=== PATIENT | male | born 1970 | race Caucasian/White ===

== ENCOUNTER → 2017-08-04 09:47 | Outpatient (CLI) | payer BC, SELFPAY ==
--- NOTE | 2017-08-04 09:53 | US_ITS ---
US scrotum HISTORY: ITS.REASON: TESTICULAR PAIN ORDERING PHYSICIAN: Christa Hart PATIENT AGE: 46 years Comparison: None FINDINGS: RIGHT TESTICLE: The right testicle has an unremarkable appearance measuring 3.8 x 1.8 x 2.8 cm. No testicular mass, hydrocele, spermatocele, or varicocele evident. Blood flow is noted to the right testicle. LEFT TESTICLE: The left testicle has an unremarkable appearance measuring3.9 x 1.7 x 2.3 cm. No mass, hydrocele, spermatocele, or varicocele evident. Blood flow is noted to the left testicle. IMPRESSION: Normal scrotal ultrasound.
== END ==
PROVIDERS: PCP Nurse Practitioner Family; Visit Provider Nurse Practitioner Family
DX: N50.811 Right testicular pain (principal)
CPT/HCPCS: 76870

== ENCOUNTER → 2018-01-27 10:17 | Outpatient (CLI) | payer BC, SELFPAY ==
--- NOTE | 2018-01-27 10:29 | CT_ITS ---
CT abdomen pelvis wo con CLINICAL INDICATION: Abdominal pain, pelvic pain, diverticulitis ITS.REASON: ABD PAIN,PROSTATITIS ORDERING PHYSICIAN: Guera Jasmine PATIENT AGE: 47 years COMPARISON: 02/09/2014 TECHNIQUE: Axial images obtained with sagittal and coronal reformats. All CT scans at the facility use one or more dose reduction, viz: automated exposure control, ma/kV adjustment per patient size (including targeted exams where dose is matched to indication, i.e. head), or iterative reconstruction technique. PROCEDURE: Oral Contrast: None IV Contrast: None . FINDINGS: The lung bases are clear. The liver, gallbladder, spleen, adrenal glands, and pancreas have unremarkable unenhanced appearance. There are multiple bilateral punctate renal calculi the largest on the right in the mid polar region of 4 mm and the largest on the left in the upper pole and 3 mm. There is minimal ectasia of the left renal collecting system and mild dilatation of the left ureter secondary to a 5 mm stone in the distal left ureter. No evidence of appendicitis, intestinal obstruction, or diverticulitis. There are scattered diverticula within the colon. Small lymph nodes are present in the mesentery nonspecific. Mild wedging involving T12 vertebral body unchanged. IMPRESSION: 1. Bilateral nephrolithiasis with 5 mm left distal ureteral stone. The stone is approximately 3 cm proximal to the ureterovesical junction with mild ectasia of the left renal collecting system. 2. No other acute findings.
== END ==
PROVIDERS: PCP Nurse Practitioner; Visit Provider Nurse Practitioner
DX: R10.84 Generalized abdominal pain (principal); N41.0 Acute prostatitis
CPT/HCPCS: 74176

== ENCOUNTER → 2019-01-25 10:00 | Outpatient (POV) | payer BC, SELFPAY | PROVIDERS: Visit Provider Dermatology | DX: Z00.00 Encounter for general adult medical examination without abnormal findings (principal) ==

== ENCOUNTER → 2019-01-28 09:38 | Outpatient (CLI) | payer BC, SELFPAY ==
--- NOTE | 2019-01-28 09:43 | XR_ITS ---
PROCEDURE: XR LUMBAR SPINE MIN 4V CLINICAL INDICATION: RT SCIATIA and low back pain COMPARISON: No exams were available for comparison FINDINGS: There is normal curvature and alignment. All lumbar vertebrae appear intact and disc spaces are well maintained throughout. There is a mild non recent compression fracture of T12 with approximately 20 percent loss of height centrally and anteriorly. There is no pars defect. There are mild hypertrophic facet changes at the L4-5 level. The SI joints are normal. IMPRESSION: No acute findings. Dictated by: Dr. Tae Funez MD 01/28/2019 10:[address] Tae Funez MD in [facility] 01/28/2019 10:22
--- NOTE | 2019-01-28 09:43 | XR_ITS ---
PROCEDURE: XR KUB CLINICAL INDICATION: RENAL CALCULI COMPARISON: ABDPELWO CT abdomen pelvis wo con from 01/27/2018 FINDINGS: Gas pattern-The bowel gas pattern is unremarkable. The mid and upper pole of the right renal shadow are somewhat obscured by overlying stool and bowel gas. No definite renal calculi are seen on either side. There is an additional small calculus right side of the pelvis which was not seen on the previous CT scan abdomen and pelvis 01/27/2018 and could possibly be a distal ureteral calculus. Additional calcifications are seen in both sides of the pelvis consistent with phleboliths and these were seen on the previous CT scan. IMPRESSION: No definite renal calculi seen though portions of the upper pole right kidney are obscured, question possibility of a distal right ureteral calculus versus new phlebolith Dictated by: Dr. Tae Funez MD 01/28/2019 10:[address] Tae Funez MD in [facility] 01/28/2019 10:14
== END ==
PROVIDERS: PCP Nurse Practitioner Family; Visit Provider Nurse Practitioner Family
DX: N20.0 Calculus of kidney (principal); M54.31 Sciatica, right side
CPT/HCPCS: 72110; 74018

== ENCOUNTER → 2019-08-04 08:46 | Outpatient (CLI) | payer BC, SELFPAY ==
--- NOTE | 2019-08-04 08:56 | XR_ITS ---
PROCEDURE: XR CHEST 2V CLINICAL HISTORY: SOB COMPARISON: No exams were available for comparison FINDINGS: The cardiomediastinal silhouette and pulmonary vascularity are within normal limits. The lungs are clear without infiltrates, suspicious nodules, or pleural effusions. No acute bony abnormalities. IMPRESSION: No acute findings. Dictated by: Andrey العلي MD 08/04/2019 15:57 Electronically signed by Andrey العلي MD in [facility] 08/04/2019 15:57
== END ==
PROVIDERS: PCP Nurse Practitioner Family; Visit Provider Nurse Practitioner Family
DX: R06.02 Shortness of breath (principal)
CPT/HCPCS: 71046

== ENCOUNTER → 2019-09-21 10:33 | Outpatient (CLI) | payer BC, SELFPAY ==
[2019-09-21 12:21] LABS: Coronavirus 19 IgG Antibody Negative (Negative); Coronavirus 19 IgM Antibody Negative (Negative)
== END ==
PROVIDERS: Visit Provider Internal Medicine Gastroenterology
DX: Z01.818 Encounter for other preprocedural examination (principal)
CPT/HCPCS: 36415; 86328

== ENCOUNTER 2019-09-23 08:53 | Day surgery (SDC) | payer BC, SELFPAY ==
[2019-09-19 14:37] VITALS: BMI 27.5
[2019-09-23] VITALS (7 sets, daily range): BP systolic 109–146; BP diastolic 61–99; PULSE 61–75; RESP 18; TEMP 36.1–36.6; O2SAT 95–98
--- NOTE | 2019-09-23 09:29 | HMH.ANESCL ---
[facility] Anesthesia Checklist - Patient Identification Patient Identification: Arm Band, Verbal (Name & ) - Structural Data Admitted From: Home Planned Operative Procedure/s: EGD Consent for Planned Operative Procedure(s) Verified: Yes Verified Documents: Surgical Consent, History and Physical - NPO Status Verified Time NPO: 00:00 - Chart Verification Results Verified: None - Additional verifications Anesthesia Reactions: No - Airway Assessment C-Spine Mobility Assessed: Yes (MP 2, TMD 3) TMJ Mobility Assessed: Yes Dentition: Good Dentition - Neurological Assessment Level of Consciousness: Awake, Alert, Appropriate, Follows Commands Hx Seizures: No Numbness or tingling in extremities: No - Anesthesia Plan Anesthesia Risk discussed: Yes Anesthesia Plan: Verified ASA Class: II Anesthesia Type: MAC [facility] History I have reviewed the patient's past medical history: Yes Medical History: Reports:: Cancer, Gastroesophageal Reflux Disease(GERD), Hyperlipidemia, Kidney Stones Denies:: Diabetes Mellitus Type 1, Diabetes Mellitus Type 2, Internal Pacemaker, Lung Disease, MRSA, Seizures *Have you ever received a pneumonia vaccine?: No *Have you received a flu vaccine this season?: No Anesthesia experience/problems:: PONV Laterality Cases: Bilateral: Tonsillectomy Other Surgeries: Yes: Colonoscopy, Other (Cystoscopy). No: Pacemaker Amputation: No Fractures: No - *Social History Last grade of school completed: Some college Smoking Status: Never smoker Alcohol Intake: never Substance Use Type: denies use *Occupational Status:: employed Housing: house Household Members: spouse, family *Travel in the last 8 weeks: None Family Hx:: Cancer
--- NOTE | 2019-09-23 10:35 | P.PCN_ITS ---
[facility] Procedure Note Procedure Note:: Upper Endoscopy Procedure Report: Esophagogastroduodenoscopy with cold biopsies and TTS balloon dilation Endoscopost: Omar Brady II, MD Referring Physician: Deana GOMEZ Date of Procedure: September 23, 2019 Equipment: Olympus GIF 180 standard upper endoscope Sedation: MAC sedation Indications: Mr. Gonzáles is a 48-year-old gentleman with heartburn and reflux. He started on omeprazole 20 mg daily 2 months ago which has helped some. He continues to have moderate globus sensation, dysphagia, frequent clearance of the throat and some cough. He reports no belching or bloating but does report some minor bloating. He has had some early satiety. He reports no nausea, epigastric discomfort or dyspepsia. He reports regular bowel function and does take Citrucel daily. He had seen me for diagnostic colonoscopy in February 2018 and had mild diverticulosis. At that time, he had obstipation/incomplete bowel evacuation and some lower abdominal discomfort. That has resolved. This is his first upper endoscopy. Procedure: Prior to the procedure, a history and physical exam was performed, and patient's medications and allergies were reviewed. The risks, benefits and alternatives of the sedation and procedure were discussed with the patient. All questions were answered and informed consent was obtained. The patient was brought to the procedure room. Patient identification and proposed procedure were verified by the physician and the nurse. The patient was placed in a left lateral decubitus position and the scope was passed under direct vision. Throughout the procedure, the patient's blood pressure, pulse, and oxygen saturations were monitored continuously. The upper GI endoscopy was accomplished without difficulty. The patient tolerated the procedure well. Findings: The scope was passed directly into the upper esophagus and advanced to the third portion of the duodenum. The post bulbar duodenum and duodenal bulb were normal with normal mucosa and conniventes. The scope was withdrawn through a normal duodenal bulb and pylorus into the stomach. There was mild to moderate linear erythema of the antrum and body of the stomach with bile reflux consistent with linear reactive gastropathy. The remainder of the antrum, body and fundus of the stomach were grossly normal. Upon retroflexion there was a very small sliding 1 to 2 cm hiatal hernia. 2 biopsies were taken in the antrum and along the lesser curvature for histology to rule out gastritis and/or H pylo ri. There were a couple of fundic gland polyps 1 of which was removed via cold biopsy. The scope was then withdrawn into the esophagus. There was no evidence of reflux esophagitis or Wells's. There was a serrated Z line. There were tertiary contractions and evidence of mild to moderate esophageal dysmotility. Biopsies were taken at the GE junction to rule out intestinal metaplasia. The entire esophagus was dilated to 60 Turkish/20 mm with a TTS hydrostatic balloon. There was some resistance at the cricopharyngeus/cricopharyngeal spasm. The remainder of the esophageal mucosa was normal. Impression: 1. 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 Nonerosive GERD with moderate esophageal dysmotility and very small 1 to 2 cm hiatal hernia 3. Bile reflux with linear reactive gastropathy of antrum/body of stomach 4. Gastric fundic gland polyps Plan: I do feel that the patient has functional GERD with esophageal dyskinesia/spasm and globus sensation. We will discuss additional dietary measures and treatment options. I will follow-up the biopsies.
== END 2019-09-23 11:32 | disposition home or self-care (01) ==
LOC: OUTP 08:58
PROVIDERS: PCP Family Medicine; Visit Provider Internal Medicine Gastroenterology
PROC: 0DJ08ZZ Inspection of Upper Intestinal Tract, Via Natural or Artificial Opening Endoscopic (ICD-10-PCS; CPT 43235; principal; 2019-09-23 10:00)
DX: K22.4 Dyskinesia of esophagus (principal); J39.2 Other diseases of pharynx; K21.9 Gastro-esophageal reflux disease without esophagitis; K44.9 Diaphragmatic hernia without obstruction or gangrene; K31.9 Disease of stomach and duodenum, unspecified; K31.7 Polyp of stomach and duodenum; Z87.19 Personal history of other diseases of the digestive system
CPT/HCPCS: 43239; 43249; C1726

== ENCOUNTER → 2019-10-10 15:19 | Outpatient (CLI) | payer BC, SELFPAY ==
--- NOTE | 2019-10-10 15:32 | XR_ITS ---
PROCEDURE: XR KUB CLINICAL INDICATION: KIDNEY STONES COMPARISON: CT ABDPELWO CT abdomen pelvis wo con from 01/27/2018 FINDINGS: There are multiple calcifications in the pelvis and may be due to phleboliths. There is a mild amount of retained colonic feces. No acute bony abnormalities. A faint calcific density overlies the mid aspect of the right kidney at 1 mm and may be due to right nephrolithiasis. IMPRESSION: Possible right nephrolithiasis Dictated by: Andrey العلي MD 10/10/2019 17:55 Andrey العلي MD in [facility] 10/10/2019 17:55
== END ==
PROVIDERS: PCP Family Medicine; Visit Provider Nurse Practitioner Family
DX: R10.9 Unspecified abdominal pain (principal); Z87.442 Personal history of urinary calculi
CPT/HCPCS: 74018

== ENCOUNTER → 2019-10-18 10:56 | Outpatient (CLI) | payer BC, SELFPAY ==
--- NOTE | 2019-10-18 11:02 | CT_ITS ---
PROCEDURE: CT ABDOMEN PELVIS WO CON CLINICAL INDICATION: RENAL CALCULUS, RIGHT, RIGHT FLANK PAIN Right flank pain COMPARISON: CT ABDPELWO CT abdomen pelvis wo con from 01/27/2018 TECHNIQUE: Axial images obtained with sagittal and coronal reformats. All CT scans at the facility use one or more dose reduction, viz: automated exposure control, ma/kV adjustment per patient size (including targeted exams where dose is matched to indication, i.e. head), or iterative reconstruction technique. FINDINGS: LOWER THORAX: No acute finding ABDOMEN & PELVIS: There is a sub cm low-density lesion in the right hepatic lobe too small to categorize not significantly changed. The spleen, adrenal glands, and pancreas have an unremarkable appearance. There are bilateral renal calculi measuring up to 4 mm in the lower pole on the right and upper pole on the left. There is minimal ectasia of the right renal collecting system. There is a 4 mm stone in the right ureterovesical junction. No evidence of appendicitis. There are scattered colonic diverticula but no evidence of diverticulitis. There are few scattered small periportal lymph nodes. There is mild chronic wedging of T12 IMPRESSION: 1. 4 mm right ureterovesical junction stone with only minimal ectasia of the right renal collecting system. 2. Bilateral nephrolithiasis Dictated by: Andrey العلي MD 10/18/2019 12:43 Andrey العلي MD in [facility] 10/18/2019 12:43
== END ==
PROVIDERS: PCP Family Medicine; Visit Provider Nurse Practitioner Family
DX: N20.0 Calculus of kidney (principal); R10.11 Right upper quadrant pain
CPT/HCPCS: 74176

== ENCOUNTER → 2019-12-21 09:29 | Outpatient (CLI) | payer BC, SELFPAY ==
--- NOTE | 2019-12-21 09:36 | XR_ITS ---
PROCEDURE: XR ELBOW LT MIN 3V CLINICAL INDICATION: LT elbow pain COMPARISON: No exams were available for comparison FINDINGS: No fracture or dislocation. No lytic or blastic change. There is normal mineralization. The joint spaces are well-preserved. No significant degenerative/arthritic changes. No erosive changes evident. Other findings:None. IMPRESSION: No acute findings. Dictated by: Dr. Tae Funez MD 12/21/2019 09:51 Dr. Tae Funez MD in [facility] 12/21/2019 09:51
== END ==
PROVIDERS: PCP Nurse Practitioner Family; Visit Provider Orthopaedic Surgery
DX: M25.522 Pain in left elbow (principal)
CPT/HCPCS: 73080

== ENCOUNTER → 2020-06-18 09:25 | Outpatient (CLI) | payer BC, SELFPAY ==
--- NOTE | 2020-06-18 | CA_ITS ---
APPROVED REPORT Exam: Exercise Treadmill Technologist: Consuelo Sandhu, Ht: 5 ft 10 in Wt: 198 lbs BSA: 2.08 m2 HR: 79 bpm BP: 130/90 mmHg Medical History Medications: Omeprazole,,,,, Simvastatin,,,,, Vitamin D3,,,,, Ambien,,,,, Diclofenac Sodium,,,,, Stress Test Details Test: Tyrese HR Resting HR: 87 bpm Max Heart Rate (APMHR): 171 bpm Max HR Achieved: 168 bpm Target HR (85% APMHR): 145 bpm % of APMHR: 98 Recovery HR: 120 bpm BP Resting BP: 130/90 mmHg Max BP: 191/94 mmHg Recovery BP: 155.0/86.0 mmHg ECG Clinical Exercise duration: 10:21 min Highest Stage Achieved: Exercise capacity: 12.8 METs Stress ECG Conclusion Symptoms: No CP, SOA noted, test stopped due to leg fatigue.Normal excercise stree test with good excercise capacity. Arrythmias/Ectopy: None ST-T Changes: <1.5mm ST segment changes. Test Summary REST . . . . . . . Standing REST . . . . . . . Sitting REST 11:40 0.0 0.0 87 . 130/ 90 . . Stage 1 01:00 10.0 1.7 101 . . . . Stage 1 02:00 10.0 1.7 112 . 140/ 80 . . Stage 1 03:00 10.0 1.7 109 . 140/ 80 . . Stage 2 01:00 12.0 2.5 122 . . . . Stage 2 02:00 12.0 2.5 123 . 145/ 65 . . Stage 2 03:00 12.0 2.5 130 . 145/ 65 . . Stage 3 01:00 14.0 3.4 142 . . . . Stage 3 02:00 14.0 3.4 149 . 160/ 80 . . Stage 3 03:00 14.0 3.4 150 . 160/ 80 . . Stage 4 01:00 16.0 4.2 165 . . . . Stage 4 01:21 16.0 4.2 167 . . . Stop exercise at 10:21 RECOVERY 01:00 0.0 0.0 144 . 160/ 80 . . RECOVERY 02:00 0.0 0.0 126 . 191/ 94 . . RECOVERY 03:00 0.0 0.0 121 . 155/ 86 . . RECOVERY 03:16 0.0 0.0 120 . 155/ 86 . . Electronically signed by : Trever Maria, 06/18/2020 19:19:21
== END ==
PROVIDERS: PCP Nurse Practitioner Family; Visit Provider Nurse Practitioner Family
DX: R07.9 Chest pain, unspecified (principal); I10 Essential (primary) hypertension
CPT/HCPCS: 93017

== ENCOUNTER → 2020-09-28 16:15 | Outpatient (CLI) | payer BC, SELFPAY ==
[2020-09-28 17:01] LABS: Basophils # 0.1 K/mm3 (0-0.2); Basophils % 0.9 % (0.1-2.0); Eosinophils # 0.1 K/mm3 (0.0-0.4); Eosinophils % 1.8 % (0.1-12.0); Hematocrit 45.7 % (42.0-52.0); Hemoglobin 14.9 g/dL (14.1-18.0); Lymphocytes # 1.8 K/mm3 (0.7-4.5); Lymphocytes % 31.2 % (10-50); Mean Corpuscular HGB Conc 32.6 g/dL (31.8-35.4); Mean Corpuscular Hemoglobin 29.8 pg (27.0-31.2); Mean Corpuscular Volume 91.5 fl (80-94); Monocytes # 0.4 K/mm3 (0.1-1.0); Monocytes % 7.2 % (1.7-9.3); Neutrophils # 3.4 K/mm3 (1.8-7.8); Neutrophils % 58.9 % (37.0-80.0); Platelet Count 243 K/mm3 (142-424); Red Blood Count 4.99 M/mm3 (4.60-6.20); Red Cell Distribution Width 13.8 % (11.5-17.5); White Blood Count 5.7 K/mm3 (4.8-10.8)
[2020-09-28 18:45] LABS: Alanine Aminotransferase 59 U/L (12-78); Albumin Level 4.3 g/dl (3.5-5.0); Albumin/Globulin Ratio 1.7 (1.1-1.8); Alkaline Phosphatase 54 U/L (38-126); Anion Gap 11.2 mEq/L (5-15); Aspartate Amino Transferase 36 U/L (17-59); Bilirubin,Total 0.6 mg/dl (0.2-1.3); Blood Urea Nitrogen 15 mg/dl (9-20); Calcium 9.3 mg/dl (8.4-10.2); Carbon Dioxide 33 mmol/L (22.0-30.0); Chloride 101 mmol/L (98-107); Chol/HDL Ratio 6.5 (1-3.5); Cholesterol 189 mg/dl (140-200); Estimated Glomerular Filt Rate 89 ml/min (>60); GFR (African American) 108 ML/MIN (>60); Globulin 2.5 g/dL (1.3-3.2); Glucose 134 mg/dl (74-100); HDL Cholesterol 29 mg/dl (40-60); Potassium 4.2 mmoL/L (3.5-5.1); Sodium 141 mmol/L (136-145); Total Protein,Serum 6.8 g/dl (6.3-8.2); Triglycerides 335 mg/dl (30-150); VLDL Cholesterol 67 mg/dL (0-40)
[2020-09-28 18:55] LABS: Direct LDL Cholesterol 121.93 mg/dL (100-129)
[2020-09-28 19:03] LABS: 25-OH Vitamin D, Total 37.3 ng/mL (30-100)
[2020-09-28 19:16] LABS: Thyroid Stimulating Hormone 0.53 uIU/mL (0.465-4.68)
[2020-09-28 19:34] LABS: Vitamin B12 426 pg/mL (239-931)
== END ==
PROVIDERS: Visit Provider Nurse Practitioner Family
DX: I10 Essential (primary) hypertension (principal); R53.83 Other fatigue; E55.9 Vitamin D deficiency, unspecified; F51.01 Primary insomnia
CPT/HCPCS: 36415; 80053; 80061; 82306; 82607; 84443; 85025

== ENCOUNTER → 2020-10-12 15:14 | Outpatient (CLI) | payer BC, SELFPAY ==
--- NOTE | 2020-10-12 15:22 | XR_ITS ---
PROCEDURE: XR ELBOW LT MIN 3V CLINICAL INDICATION: left elbow pain COMPARISON: CR XR ELBOW LT MIN 3V from 12/21/2019 FINDINGS: There is a faint calcific density along the lateral epicondyle consistent with an old avulsion fracture or ligamentous calcification. Not significantly changed. No acute fracture or dislocation. Joint spaces are well preserved. No significant degenerative change or displaced fat pad IMPRESSION: No acute findings. Calcification along the lateral epicondyle which could be due to an old fracture or old ligamentous injury not significantly changed Dictated by: Andrey العلي MD 10/12/2020 15:38 Andrey العلي MD in [place] 10/12/2020 15:38
== END ==
PROVIDERS: PCP Family Medicine; Visit Provider Orthopaedic Surgery
DX: M77.10 Lateral epicondylitis, unspecified elbow (principal)
CPT/HCPCS: 73080

== ENCOUNTER → 2022-06-05 15:02 | Outpatient (CLI) | payer OTHER, SELFPAY ==
--- NOTE | 2022-06-05 15:28 | XR_ITS ---
FINAL REPORT CLINICAL HISTORY: RT KNEE PAIN COMPARISON: None FINDINGS: Two views of the right knee were obtained. There is no evidence of fracture or dislocation. The bony alignment is normal. The joint spaces are preserved. There is no evidence of joint effusion. No localized soft tissue abnormality is identified. IMPRESSION: No acute abnormality identified. Reviewed, Interpreted and Dictated by Kaleb Riggins III, MD Transcribed by Barbara Arias Authenticated and [facility]
== END ==
PROVIDERS: PCP Family Medicine; Visit Provider Nurse Practitioner Family
DX: M25.561 Pain in right knee (principal)
CPT/HCPCS: 73560

== ENCOUNTER 2022-09-19 06:54 | Emergency (ER) | payer OTHER, BC, SELFPAY ==
[2022-09-19 06:56] VITALS: BP 135/95; PULSE 83; RESP 18; TEMP 36.7; O2SAT 97; BMI 27.9
--- NOTE | 2022-09-19 07:04 | PC.NURSE ---
dr rubi at bedside
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
[2022-09-19 07:15] VITALS: BP 130/87; PULSE 70; RESP 17; TEMP 36.7; O2SAT 96
== END 2022-09-19 07:15 | disposition home or self-care (01) ==
PROVIDERS: Emergency Provider Emergency Medicine; PCP Family Medicine
DX: S05.02XA Injury of conjunctiva and corneal abrasion without foreign body, left eye, initial encounter (principal); W20.8XXA Other cause of strike by thrown, projected or falling object, initial encounter; W25.XXXA Contact with sharp glass, initial encounter
CPT/HCPCS: 99284

== ENCOUNTER 2023-02-27 16:03 | Outpatient (CLI) | payer OTHER, SELFPAY ==
--- NOTE | 2023-02-27 16:19 | XR_ITS ---
PROCEDURE INFORMATION: Exam: XR Thoracic Spine Exam date and time: 02/27/2023 4:23 PM Age: 52 years old Clinical indication: Injury or trauma; Fall; Blunt trauma (contusions or hematomas); Additional info: Fall at work TECHNIQUE: Imaging protocol: Radiologic exam of the thoracic spine. Views: 3 views. COMPARISON: CR XR LUMBAR SPINE MIN 4V 02/27/2023 4:23 PM FINDINGS: Bones/joints: Mild chronic appearing compression deformity of T12. No acute fracture localized. Soft tissues: Unremarkable. IMPRESSION: Mild chronic appearing compression deformity of T12. No acute fracture localized.
--- NOTE | 2023-02-27 16:20 | XR_ITS ---
PROCEDURE INFORMATION: Exam: XR Lumbosacral Spine Exam date and time: 02/27/2023 4:23 PM Age: 52 years old Clinical indication: Injury or trauma; Fall; Work related; Blunt trauma (contusions or hematomas); Additional info: Fall at work TECHNIQUE: Imaging protocol: Radiologic exam of the lumbosacral spine. Views: 4 or 5 views. COMPARISON: CR XR LUMBAR SPINE MIN 4V 01/28/2019 9:49 AM FINDINGS: Bones/joints: Mild chronic appearing compression deformity superior endplate of T12 with anterior wedging. No acute fracture. Mild facet arthropathy and spondylosis. Relatively good preservation of disc space height. Soft tissues: Unremarkable. Organs: Bilateral renal stones. Eleven by 5 mm calcification lateral to the L3-L4 disc space, potentially a ureteral stone on the right. IMPRESSION: 1. Mild chronic appearing compression deformity superior endplate of T12 with anterior wedging. No acute fracture. 2. Bilateral renal stones. Eleven by 5 mm calcification lateral to the L3-L4 disc space, potentially a ureteral stone on the right.
== END 2023-02-27 23:59 ==
PROVIDERS: PCP Family Medicine; Visit Provider Nurse Practitioner Family
DX: M54.6 Pain in thoracic spine (principal); M54.50 Low back pain, unspecified
CPT/HCPCS: 72072; 72110

== ENCOUNTER 2023-06-09 15:02 | Outpatient (CLI) | payer BC, SELFPAY ==
--- NOTE | 2023-06-09 15:05 | US_ITS ---
FINAL REPORT TECHNIQUE: Ultrasound images of the testicles were obtained bilaterally. Color Doppler images were obtained. CLINICAL HISTORY: TESTICULAR PAIN COMPARISON: None FINDINGS: The testicles are normal in size and echotexture bilaterally. Arterial flow is identified bilaterally. There is a moderate left varicocele and a small right varicocele. Trace hydroceles are noted bilaterally. There are small rounded areas in the left epididymal head measuring up to 5 mm, some appear purely cystic while others are complex and are favored to represent epididymal cysts. IMPRESSION: Bilateral varicoceles, left greater than right. Epididymal cysts on the left. Reviewed, Interpreted and Dictated by Rodrigo Garcia MD Transcribed by Barbara Arias Authenticated and [facility]
== END 2023-06-09 23:59 | disposition home or self-care (01) ==
LOC: RAD 15:02
PROVIDERS: PCP Nurse Practitioner; Visit Provider Nurse Practitioner
DX: N50.819 Testicular pain, unspecified (principal)
CPT/HCPCS: 76870

== ENCOUNTER 2023-06-16 15:08 | Outpatient (CLI) | payer BC, SELFPAY ==
--- OUTSIDE RECORDS SUMMARY | 2023-06-16 15:10 | XMS_ITS ---
Care Plan - [facility], [facility] Created on: June 16, 2023 Quirino Gonzáles : 1970 Sex: Male Author Name Unknown Address [address] [place] [address] Phone Organization [facility] Address [address] [place] [address] Phone Care Team Providers Care Meter Attendant Name Role Phone Michelle REGALADO, Caleb Unavailable [phone]
--- OUTSIDE RECORDS SUMMARY | 2023-06-16 15:10 | XMS_ITS ---
Author Name Unknown Address [address] [place] [address] [place] [address] Phone Organization [facility] , [facility] Address [address] [address] Phone Care Team Providers Care Malted Milk Masher Name Role Phone Michelle REGALADO, Caleb Unavailable [phone] Plan of Treatment No Plan of Treatment Recorded Assessments Includes: Assessments for all patient encounters No Assessments Recorded Medical Equipment - Implanted Devices Includes: Current and historical Devices No Medical Equipment Recorded Medications Administered Includes: Administered Medications in patient's chart No Administered Medications Recorded Results Includes: Results from 06/15/2022 through 06/16/2023 No Results Recorded For Specified Dates History of Present Illness History of Present Illness not supported for this document type No History of Present Illness Recorded Social History No Social History Recorded - Smoking Status Unknown Medical History Includes: Medical History in patient's chart No Medical History Recorded Family History Includes: Family History in patient's chart No Family History Recorded Review of Systems Review of Systems not supported for this document type No Review of Systems Recorded Mental Status No Mental Status Recorded Functional Status No Functional Status Recorded Physical Exam Physical Exam not supported for this document type No Physical Exam Recorded Insurance Includes: Active Insurance Policies Plan Name Member ID Group # Subscriber Relationship Effect nely Dates 1 - [facility] [id number] Quirino Gonzáles Self 0 06/03/2022 - Unknown Clinical Notes Includes: Signed Clinical Notes starting from 02/06/2022 No Clinical Notes Recorded
--- NOTE | 2023-06-16 15:11 | XR_ITS ---
FINAL REPORT CLINICAL HISTORY: CALCULUS OF KIDNEY follow up COMPARISON: 10/10/2019 FINDINGS: SINGLE VIEW ABDOMEN A single view of the abdomen was obtained. There is a nonobstructive bowel gas pattern. There is a moderate amount of stool in the colon. There are no abnormally dilated loops of small bowel. There is a 5 mm stone projected over the lower pole of the left kidney. Calcified phleboliths are noted in the floor the pelvis. IMPRESSION: 5 mm stone lower pole left kidney. Reviewed, Interpreted and Dictated by Rodrigo Garcia MD Transcribed by Barbara Arias Authenticated and [facility]
== END 2023-06-16 23:59 | disposition home or self-care (01) ==
LOC: RAD 15:08
PROVIDERS: PCP Family Medicine; Visit Provider Urology
DX: N20.0 Calculus of kidney (principal)
CPT/HCPCS: 74018

== ENCOUNTER 2023-07-13 15:52 | Outpatient (CLI) | payer BC, SELFPAY ==
--- OUTSIDE RECORDS SUMMARY | 2023-07-13 15:54 | XMS_ITS ---
Care Plan - [facility], [facility] Created on: July 13, 2023 Quirino Gonzáles : 1970 Sex: Male Author Name Unknown Address [address] [place] [address] Phone Organization [facility] , [facility] Address [address] [place] [address] Phone Care Team Providers Care Work Manager Name Role Phone Michelle REGALADO, Caleb Unavailable [phone]
--- OUTSIDE RECORDS SUMMARY | 2023-07-13 15:54 | XMS_ITS ---
Author Name Unknown Address [address] [place] [address] [place] [address] Phone Organization [facility] , [facility] Address [address] [place] [address] Phone Care Team Providers Care Gymnastics Instructor Name Role Phone Michelle REGALADO, Caleb Unavailable [phone] Plan of Treatment No Plan of Treatment Recorded Assessments Includes: Assessments for all patient encounters No Assessments Recorded Medical Equipment - Implanted Devices Includes: Current and historical Devices No Medical Equipment Recorded Medications Administered Includes: Administered Medications in patient's chart No Administered Medications Recorded Results Includes: Results from 07/12/2022 through 07/13/2023 No Results Recorded For Specified Dates History [...] Subscriber Relationship Effect nely Dates 1 - [facility] [id number] Quirino Gonzáles Self 0 06/03/2022 - Unknown Clinical Notes Includes: Signed Clinical Notes starting from 02/06/2022 No Clinical Notes Recorded
[2023-07-13 18:12] LABS: Blood Urea Nitrogen 22 mg/dl (9-20); Estimated Glomerular Filt Rate 58 ml/min (>60); GFR (African American) 70 ML/MIN (>60)
[2023-07-15 08:19] LABS: PSA, Free 0.53 ng/mL; Prostate Specific Ag 1.5 ng/mL (0.0-4.0)
== END 2023-07-13 23:59 | disposition home or self-care (01) ==
PROVIDERS: PCP Family Medicine; Visit Provider Urology
DX: N40.2 Nodular prostate without lower urinary tract symptoms (principal); N52.9 Male erectile dysfunction, unspecified
CPT/HCPCS: 36415; 82565; 84153; 84154; 84520

== ENCOUNTER 2023-11-23 11:17 | Day surgery (SDC) | payer BC, SELFPAY ==
[2023-11-18 11:21] VITALS: BMI 28.7
[2023-11-23 11:32] VITALS: BP 130/79; PULSE 90; RESP 18; TEMP 36.2; O2SAT 97
[2023-11-23] MEDS: LACTATED RINGERS 1000ML 1,000 ML 25 ML IV (11:39)
[2023-11-23 11:47] VITALS: O2SAT 97
--- NOTE | 2023-11-23 11:47 | P.HP_ITS ---
History of Present Illness *Admission Date: 11/23/23 *Reason for visit:: Screening *History of present illness: Mr. Gonzáles is a 53-year-old gentleman who is here for screening colonoscopy. The examination is deemed medically necessary for screening. The patient has been seen, interviewed and examined prior to the procedure by both myself and the anesthesia provider. [facility] Disclaimer: The information contained in this section may have been updated after the patient was seen, as this information can be updated by other users. Medical History (Updated 11/23/23 @ 11:51 by Omar Brady II, MD) History of diverticulosis History of BPH History of prostatitis Hx of gastroesophageal reflux (GERD) History of hyperlipidemia History of hypertension Surgical History History of tonsillectomy History of esophagogastroduodenoscopy (EGD) Hx of colonoscopy Family History Other No significant family history Social History (Updated 11/23/23 @ 11:28 by Bhavya Diallo RN) Smoking Status: Never smoker alcohol intake: never substance use type: denies use current occupational status: employed Travel in the last 8 weeks: None household members: spouse and family housing: house caffeine: Yes Review of Systems Review of Systems Review of systems (narrative): Negative *Cardiovascular Comments: Negative *Gastrointestinal Comments: Negative *Genitourinary Comments: Negative *Musculoskeletal Comments: Negative *Neurologic Comments: Negative Meds Home Medications and Allergies Home Medications ?Medication ?Instructions ?Recorded ?Confirmed ?Type cholecalciferol (vitamin D3) 25 5,000 unit PO DAILY Supplement 02/04/18 11/23/23 History mcg (1,000 unit) capsule zolpidem 10 mg tablet (Ambien) 10 mg PO QHS PRN Sleep 02/04/18 11/23/23 History omeprazole 20 mg capsule,delayed 20 mg PO DAILY GERD 09/23/19 11/23/23 History release buspirone 10 mg tablet 10 mg PO BID 11/16/23 11/23/23 History levofloxacin 500 mg tablet 500 mg PO DAILY 10 days #10 tabs 11/16/23 11/23/23 Rx losartan 50 mg tablet 50 mg PO DAILY 11/16/23 11/23/23 History simvastatin 40 mg tablet 40 mg PO DAILY 11/16/23 11/23/23 History diclofenac sodium 75 mg 75 mg PO DAILY 11/23/23 11/23/23 History tablet,delayed release New Prescriptions to Start Prescriptions: Allergies Allergy/AdvReac Type Severity Reaction Status Date / Time No Known Allergies Allergy Verified 11/23/23 11:29 Exam Data for Last 24 hours Vital signs and Labs for Last 24 Hours: Temp Pulse Resp BP Pulse Ox O2 Del Method 97.1 F L 90 18 130/79 97 Room Air 11/23/23 11:32 11/23/23 11:32 11/23/23 11:32 11/23/23 11:32 11/23/23 11:32 11/23/23 11:32 *Routine HEENT Exam Head: Present normocephalic Eye: Present EOMI and PERRL ENT: Present mucous membranes moist *Routine Neck Exam Neck: Present supple *Routine Respiratory Exam Respiratory: Present CTA bilaterally *Routine Cardiovascular Exam Cardiovascular: Present RRR *Routine Abdominal Exam Abdominal: Present soft and normoactive bowel sounds; Absent tenderness *Routine Rectal Exam Rectal:: deferred *Routine Genitalia Exam Genitalia:: deferred *Routine Extremities Exam Extremities: Absent cyanosis, clubbing or edema *Routine Skin Exam Skin: Present warm; Absent rash *Routine Neurological Exam Neurological: Present alert and oriented X3 Assessment and Plan *Assessment and plan (1) Screening for colon cancer: Status: Acute Category: Medical Code(s): Z12.11 - Encounter for screening for malignant neoplasm of colon Plan A/P: 1. Screening for colon cancer is the preprocedural diagnosis. The patient will be anesthetized/sedated using MAC sedation. The patient has been seen and examined. Cardiac and lung assessment prior to the examination is stable. Proceed with planned colonoscopy
--- NOTE | 2023-11-23 11:49 | P.PNANES_ITS ---
[facility] Disclaimer: The information contained in this section may have been updated after the patient was seen, as this information can be updated by other users. Medical History History of diverticulosis History of BPH History of prostatitis Hx of gastroesophageal reflux (GERD) History of hyperlipidemia History of hypertension Surgical History History of tonsillectomy History of esophagogastroduodenoscopy (EGD) Hx of colonoscopy Family History Other No significant family history Social History Smoking Status: Never smoker alcohol intake: never substance use type: denies use current occupational status: employed Travel in the last 8 weeks: None household members: spouse and family housing: house caffeine: Yes [facility] Anesthesia Checklist Patient Identification Patient Identification: Arm Band and Verbal (Name & ) Structural Data Admitted From: Home Planned Operative Procedure/s: Colonoscopy Consent for Planned Operative Procedure(s) Verified: Yes Verified Documents: Surgical Consent and History and Physical NPO Status Verified Time NPO: 00:00 Additional verifications Anesthesia Reactions: No Airway Assessment Mallampati Score:: Class III C-Spine Mobility Assessed: Yes TMJ Mobility Assessed: Yes Dentition: Good Dentition Neurological Assessment Level of Consciousness: Awake Hx Seizures: No Numbness or tingling in extremities: No Anesthesia Plan Anesthesia Risk discussed: Yes Anesthesia Plan: Verified ASA Class: II Anesthesia Type: MAC
--- NOTE | 2023-11-23 11:51 | HMH.PROCNOTE ---
[facility] Procedure Note Date: 11/23/23 Procedure Note:: Colonoscopy Procedure Report: Colonoscopy Endoscopist: Omar Brady II, MD Referring physician: Karena Parish M.D. Date of Procedure: November 23, 2023 Equipment: Olympus 190 variable stiffness pediatric colonoscope Sedation: MAC sedation Indication: Mr. Gonázles is a 53-year-old gentleman who is here for screening colonoscopy. He has had some suprapubic/pelvic pain related to prostatitis. He reports no abdominal pain, weight loss, change in his bowel habits or rectal bleeding. He reports no family history of colon cancer. He did have a colonoscopy 4-5 years ago Procedure: Prior to the procedure, a history and physical exam was performed, and patient's medications and allergies were reviewed. The risks, benefits and alternatives of the sedation and procedure were discussed with the patient. All questions were answered and informed consent was obtained. The patient was brought to the procedure room. Patient identification and proposed procedure were verified by the physician and the nurse. The patient was placed in a left lateral decubitus position and the scope was passed under direct vision. Throughout the procedure, the patient's blood pressure, pulse, and oxygen saturations were monitored continuously. The colonoscopy was accomplished without difficulty. The patient tolerated the procedure well. Findings: On digital rectal examination there was normal rectal tone. There were no external hemorrhoids. The prostate was 2-3+, mildly firm but symmetric without the colonoscope was introduced through the anal canal to the rectum and advanced to the cecum. The ileocecal valve and appendiceal orifice were identified. The scope was advanced a short distance into the ileum which appeared grossly normal. The scope was then withdrawn into the colon. The cecum, ascending and transverse colon and mucosa were grossly normal. There were scattered diverticuli throughout the descending and sigmoid colon (LEFT colon). The rectum itself was normal. Upon retroflexion within the rectum there were grade 1-2 internal hemorrhoids. The preparation was excellent throughout with Monroe Preparation Score of 9. The cecal time was 10 minutes. Impression: 1. Left-sided diverticulosis 2. Grade 1-2 internal hemorrhoids Plan: The patient will not require screening/surveillance colonoscopy again for 10 years by ACS guidelines. I would encourage fiber supplementation on a long-term daily maintenance basis.
[2023-11-23 12:11] VITALS: BP 120/80; PULSE 78; RESP 16; TEMP 36.3; O2SAT 96
[2023-11-23 12:21] VITALS: BP 114/69; PULSE 75; RESP 16; TEMP 36.3; O2SAT 96
[2023-11-23 12:31] VITALS: BP 125/71; PULSE 74; RESP 18; TEMP 36.3; O2SAT 96
[2023-11-23 12:41] VITALS: BP 124/70; PULSE 75; RESP 18; O2SAT 98
== END 2023-11-23 12:41 | disposition home or self-care (01) ==
PROVIDERS: PCP Family Medicine; Visit Provider Internal Medicine Gastroenterology
PROC: (CPT 45378; principal; 2023-11-23 13:30)
DX: Z12.11 Encounter for screening for malignant neoplasm of colon (principal); K57.30 Diverticulosis of large intestine without perforation or abscess without bleeding; K64.1 Second degree hemorrhoids
CPT/HCPCS: 45378; 99221; J2405; J7120

== ENCOUNTER 2023-12-03 14:29 | Outpatient (CLI) | payer OTHER, BC, SELFPAY ==
--- NOTE | 2023-12-03 14:31 | MR_ITS ---
FINAL REPORT CLINICAL HISTORY: LOW BACK PAIN ON RIGHT SIDE FINDINGS: Multiplanar MR imaging of the lumbar spine was performed without contrast. On the sagittal T2-weighted images, disc degeneration is seen at multiple levels. Mild endplate changes are seen at several levels. The vertebral alignment is normal. Several hemangiomas are present. There is no evidence of fracture. The conus has an unremarkable appearance. L1-2: There is no significant canal stenosis or neuroforaminal narrowing. L2-3: There is an annular disc bulge with facet arthropathy and vertebral osteophytes. There is mild right neuroforaminal narrowing. L3-4: An annular disc bulge with facet arthropathy is present. There is mild bilateral neuroforaminal narrowing. L4-5: An annular disc bulge with facet arthropathy is present. There is a small central disc protrusion. There is mild bilateral neuroforaminal narrowing. L5-S1: There is no significant canal stenosis or neuroforaminal narrowing. IMPRESSION: Multilevel degenerative disc disease as above. Small central disc protrusion at L4-5. Reviewed, Interpreted and Dictated by Kaleb Riggins III, MD Transcribed by Shaniqua Bowling Authenticated and . [facility]
--- NOTE | 2023-12-03 14:35 | XR_ITS ---
FINAL REPORT CLINICAL HISTORY: R/O METAL FOREIGN BODY FOR MRI FINDINGS: ORBITS Look up and look down views were obtained. No fracture is identified. The sinuses are clear. There are postoperative changes to the right inferior orbital wall with a wire in this region. No intraorbital foreign body is identified. IMPRESSION: No intraorbital foreign body is identified. Postoperative changes to the right inferior orbital wall with a wire in this region. Reviewed, Interpreted and Dictated by Kaleb Riggins III, MD Transcribed by Shaniqua Bowling Authenticated and . [facility]
== END 2023-12-03 23:59 | disposition home or self-care (01) ==
LOC: RAD 14:29
PROVIDERS: PCP Family Medicine; Visit Provider Nurse Practitioner
DX: M54.41 Lumbago with sciatica, right side (principal)
CPT/HCPCS: 70200; 72148

== ENCOUNTER 2024-01-30 17:15 | Emergency (ER) | payer BC, SELFPAY ==
[2024-01-30 17:28] VITALS: BP 151/100; PULSE 74; RESP 18; TEMP 36.4; O2SAT 96; BMI 28.7
--- NOTE | 2024-01-30 17:34 | ED_ITS ---
<Statement entered by Collin Muller MD - 01/30/24 23:08> I was consulted by the MERYL, and we discussed the complexity of the problems being addressed. I approved the treatment and management plan for this patient's care in the emergency department, thus performing a substantive portion of the medical decision making. Collin Muller MD, LELAND, FACEP Discharge Plan Disposition Patient Disposition: Home, Self-Care Prescriptions Prescriptions: New ibuprofen 800 mg tablet 800 mg PO TID PRN (Reason: pain) 7 Days Qty: 20 0RF hydrocodone-acetaminophen 5-325 mg tablet 1 tab PO Q6H PRN (Reason: pain) 3 Days Qty: 12 0RF tamsulosin [Flomax] 0.4 mg capsule 0.4 mg PO DAILY 7 Days Qty: 7 0RF ondansetron 4 mg tablet,disintegrating 4 mg PO Q6H PRN (Reason: nausea and vomiting) 5 Days Qty: 20 0RF No Action zolpidem [Ambien] 10 mg tablet 10 mg PO QHS PRN (Reason: Sleep) cholecalciferol (vitamin D3) 1,000 unit capsule 5,000 unit PO DAILY losartan 50 mg tablet 50 mg PO DAILY Patient Comments: TAKE 1 TABLET BY MOUTH ONCE DAILY simvastatin 40 mg tablet 40 mg PO DAILY Patient Comments: TAKE 1 TABLET BY MOUTH ONCE DAILY IN THE EVENING buspirone 10 mg tablet 10 mg PO BID Patient Comments: TAKE 1 TABLET BY MOUTH TWICE DAILY levofloxacin 500 mg tablet 500 mg PO DAILY 10 Days Qty: 10 0RF diclofenac sodium 75 mg tablet,delayed release (DR/EC) 75 mg PO DAILY Patient Comments: TAKE 1 TABLET BY MOUTH TWICE DAILY omeprazole 20 MG capsule,delayed release(DR/EC) 20 mg PO DAILY Referrals Follow up/Referrals: Maki Parish MD [Primary Care Provider] - See instructions Mitali (ED)Deana APRN [Emergency Midlevel Provider] - See instructions Walter Andrew MD [Referring] - See instructions Activity Restrictions/Add. Instructions Additional Instructions/Restrictions: You have a 4 mm distal ureteral stone that is obstructing. As discussed this is statistically very likely to pass you may make an appointment with your urologist Dr. Cruz return with any intractable nausea vomiting pain or high fevers. Clinical Impressions Clinical Impression: Hydronephrosis concurrent with and due to calculi of kidney and ureter Instructions Patient Instructions: DI for Low Back Pain Print Language Print Language: American Discharge ED Provider: Collin Muller General Adult HPI General Chief complaint: Back Pain/Injury Stated complaint: abd/back pain nausea history of kidney stones Time Seen by Provider: 01/30/24 17:21 History of Present Illness HPI narrative: This is a 53-year-old male who presents to the ED today with complaint of left lower pelvic pain that moves into his left back. He has had some burning with urination as well. He has had many kidney stones in the past. He feels like this is the same thing. He has nausea as well today. No fevers or chills. No vomiting or diarrhea. No other associated signs or symptoms at this time. Related Data Home Medications ?Medication ?Instructions ?Recorded ?Confirmed cholecalciferol (vitamin D3) 25 5,000 unit PO DAILY Supplement 02/04/18 11/23/23 mcg (1,000 unit) capsule zolpidem 10 mg tablet (Ambien) 10 mg PO QHS PRN Sleep 02/04/18 11/23/23 omeprazole 20 mg capsule,delayed 20 mg PO DAILY GERD 09/23/19 11/23/23 release buspirone 10 mg tablet 10 mg PO BID 11/16/23 11/23/23 losartan 50 mg tablet 50 mg PO DAILY 11/16/23 11/23/23 simvastatin 40 mg tablet 40 mg PO DAILY 11/16/23 11/23/23 diclofenac sodium 75 mg 75 mg PO DAILY 11/23/23 11/23/23 tablet,delayed release Previous Rx's ?Medication ?Instructions ?Recorded levofloxacin 500 mg tablet 500 mg PO DAILY 10 days #10 tabs 11/16/23 hydrocodone 5 mg-acetaminophen 325 1 tab PO Q6H PRN pain 3 days #12 01/30/24 mg tablet tabs ibuprofen 800 mg tablet 800 mg PO TID PRN pain 7 days #20 01/30/24 tabs ondansetron 4 mg disintegrating 4 mg PO Q6H PRN nausea and 01/30/24 tablet vomiting 5 days #20 tabs tamsulosin 0.4 mg capsule (Flomax) 0.4 mg PO DAILY 7 days #7 caps 01/30/24 Allergies Allergy/AdvReac Type Severity Reaction Status Date / Time No Known Allergies Allergy Verified 11/23/23 11:29 PFSH PFSH Disclaimer: The information contained in this section may have been updated after the patient was seen, as this information can be updated by other users. Medical History History of diverticulosis History of BPH History of prostatitis Hx of gastroesophageal reflux (GERD) History of hyperlipidemia History of hypertension Surgical History History of tonsillectomy History of esophagogastroduodenoscopy (EGD) Hx of colonoscopy Family History Other No significant family history Social History Smoking Status: Unknown if ever smoked alcohol intake: never substance use type: denies use current occupational status: employed Travel in the last 8 weeks: None household members: spouse and family housing: house caffeine: Yes Other Medical History Have you received the Flu Vaccine for this season: No Have you received the Pneumonia Vaccine: No ROS Obtained: Yes Systems reviewed as appropriate & no additional complaints except as documented Constitutional Constitutional: Reports as per HPI Physical Exam General General appearance: alert and in distress Head Head exam: atraumatic and normocephalic Eye Eye exam: Present normal appearance, PERRL and EOMI ENT ENT exam: Present normal exam, normal oropharynx and mucous membranes moist Neck Neck exam: Present normal inspection, full ROM and trachea midline Chest Chest inspection: Present normal inspection Respiratory Respiratory exam: Present normal lung sounds bilaterally Cardiovascular Cardiovascular exam: Present regular rate, normal rhythm, normal heart sounds, +S1 and +S2 Abdominal Exam Abdominal exam: Present soft and normal bowel sounds Abdominal tenderness: Present LLQ Extremities Exam Extremities exam: Present normal inspection, full ROM and normal capillary refill Back Exam Back exam: Present CVA tenderness (L) Neurological Exam Neurological exam: Present alert and oriented X3 Skin Skin exam: Present warm, dry and intact Medical Decision Making Medical Records Screening: Per USPSTF and CDC recommendations, given the prevalence of disease in our region, it is our hospital?s policy to screen for HIV and viral Hepatitis for all patients aged 18 and over and those with ongoing risk factors. Wes Inquiry Pt receiving controlled substance: No Wes was queried for this patient: No Vital Signs: 01/30/24 17:28 Temperature 97.5 F L Temperature Source Oral Pulse Rate [Right Radial] 74 Respiratory Rate 18 Blood Pressure [Right Arm] 151/100 H Blood Pressure Mean [Right Arm] 117 02 Sat by Pulse Oximetry 96 Oxygen Delivery Method Room Air Lab Data Lab Results 01/30/24 17:39: WBC 9.8, RBC 5.07, Hgb 15.2, Hct 47.1, MCV 93.0, MCH 30.0, MCHC 32.3, RDW 13.2, Plt Count 292, MPV 6.8 L, Neut % (Auto) 66.5, Lymph % (Auto) 26.9, [place] % (Auto) 4.6, Eos % (Auto) 1.0, Baso % (Auto) 1.0, Neut # (Auto) 6.5, Lymph # (Auto) 2.6, [place] # (Auto) 0.5, Eos # (Auto) 0.1, Baso # (Auto) 0.1, Sodium 143, Potassium 3.9, Chloride 106, Carbon Dioxide 33 H, Anion Gap 7.9, BUN 23 H, Creatinine 1.30 H, Estimated Creat Clear 84, Estimated GFR 58 L, Est GFR ( Amer) 70, Glucose 122 H, Calcium 9.3, Total Bilirubin 0.8, AST 48, ALT 101 H, Alkaline Phosphatase 62, Total Protein 7.1, Albumin 4.4, Globulin 2.7, Albumin/Globulin Ratio 1.6, Lipase 128, HIV 1&2 Antibody Rapid Nonreactive 01/30/24 17:43: Urine Color Yellow, Urine Appearance Slightly cloudy, Urine pH 6.5, Ur Specific [place] 1.025, Urine Protein Negative, Urine Glucose (UA) Negative, Urine Ketones Negative, Urine Blood 2+ A, Urine Nitrate Negative, Urine Bilirubin Negative, Urine Urobilinogen 0.2, Ur Leukocyte Esterase Negative, Urine RBC 20-50, Urine WBC None, Ur Squamous Epith Cells Occasional, Urine Bacteria Trace 01/30/24 17:39 01/30/24 17:39 Orders (Tests/Meds): ED MEDICATIONS Generic Name Dose Route Start Last Admin Trade Name Freq PRN Reason Stop Dose Admin Hydromorphone HCl 0.5 mg 01/30/24 18:44 01/30/24 18:52 Hydromorphone 2mg/Ml Syringe IV 02/29/24 18:43 0.5 mg Q2HP PRN Administration Severe Pain (7-10) Discontinued Medications Generic Name Dose Route Start Last Admin Trade Name Freq PRN Reason Stop Dose Admin Sodium Chloride 500 mls @ 999 mls/hr 01/30/24 17:24 01/30/24 17:59 Sod Chlor 0.9% 1000ml Bag IV 01/30/24 17:54 999 mls/hr .Q31M ONE Administration Ketorolac Tromethamine 30 mg 01/30/24 17:24 01/30/24 17:58 Ketorolac 30mg/Ml Vial IV 01/30/24 17:25 30 mg ONCE ONE Administration Morphine Sulfate 4 mg 01/30/24 17:28 01/30/24 17:58 Morphine 4mg/Ml Syringe IV 01/30/24 17:29 4 mg ONCE ONE Administration Morphine Sulfate 4 mg 01/30/24 19:51 01/30/24 19:57 Morphine 4mg/Ml Syringe IV 01/30/24 19:52 4 mg ONCE ONE Administration Ondansetron HCl 4 mg 01/30/24 17:29 01/30/24 17:59 Ondansetron 4mg/2ml Vial IV 01/30/24 17:30 4 mg ONCE ONE Administration Ondansetron HCl 4 mg 01/30/24 20:16 01/30/24 20:18 Ondansetron 4mg/2ml Vial IV 01/30/24 20:17 4 mg ONCE ONE Administration ORDERS Category Date Time Status CT abdomen pelvis wo con Stat Cat Scan 01/30/24 18:09 Completed CBC [Complete Blood Count Auto Diff] Stat Lab 01/30/24 17:39 Completed Comprehensive Metabolic Panel Stat Lab 01/30/24 17:39 Completed HIV (1&2) Antibody Rapid Stat Lab 01/30/24 17:39 Completed Hep C Ab with Reflex to RNA Stat Lab 01/30/24 17:39 Received Lipase Stat Lab 01/30/24 17:39 Completed Urinalysis-Acute [Urinalysis and Microscopic] Stat Lab 01/30/24 17:43 Completed Medical Decision Narrative: Insert review patient is a 53-year-old male presenting to the emergency department for evaluation of left lower pelvic pain that moves into his left back with some dysuria patient has a history of kidney stones.. Patient is hemodynamically stable and nontoxic-appearing upon arrival, afebrile. Differential diagnosis includes kidney stones, bladder infection. Workup will be conducted with hematologic labs, specific imaging including CT scan without contrast. Initial inventions include crystalloid bolus, analgesics, antibiotics. Initial workup reviewed by me hematologic labs are remarkable for minimally elevated kidney function which is normal for this patient at baseline. Urine reveals blood but no infection. Imaging informally interpreted by me and remarkable for kidney stone on the left with mild hydronephrosis. Dr. Muller also looked at the scan with me. Formal imaging read remarkable for:] Upon repeat evaluation patient's pain is improved. Patient has been given Zofran for nausea and morphine and Dilaudid for pain which did control his pain while here while in the ED. With this patient's history of will send patient home with referal to urology as well as pain and nausea meds. Patient will have quick follow-up with PCP as well as urology. Critical Care Critical Care Time Critical Care Time: No
[2024-01-30 17:40] LABS: Microscopic, Urine URINE MICROSCOPIC (MICROSCOPIC)
[2024-01-30 17:47] LABS: Basophils # 0.1 K/mm3 (0-0.2); Eosinophils # 0.1 K/mm3 (0.0-0.4); Hematocrit 47.1 % (42.0-52.0); Hemoglobin 15.2 g/dL (14.1-18.0); Lymphocytes # 2.6 K/mm3 (0.7-4.5); Lymphocytes % 26.9 % (10-50); Mean Corpuscular HGB Conc 32.3 g/dL (31.8-35.4); Mean Platelet Volume 6.8 fl (7.4-10.4); Monocytes # 0.5 K/mm3 (0.1-1.0); Monocytes % 4.6 % (1.7-9.3); Neutrophils # 6.5 K/mm3 (1.8-7.8); Neutrophils % 66.5 % (37.0-80.0); Platelet Count 292 K/mm3 (142-424); Red Blood Count 5.07 M/mm3 (4.60-6.20); Red Cell Distribution Width 13.2 % (11.5-17.5); White Blood Count 9.8 K/mm3 (4.8-10.8)
[2024-01-30 17:48] LABS: Bilirubin,Urine Negative (Negative); Blood, Urine 2+ (Negative); Color,Urine YELLOW (Yellow); Glucose,Urine (UA) Negative (Negative); Ketones,Urine Negative (Negative); Leukocyte Esterase,Urine Negative (Negative); Nitrate,Urine Negative (Negative); PH,Urine 6.5 (5.0-8.5); Protein,Urine Negative (Negative); Specific Gravity, Urine 1.025 (1.005-1.030); Urobilinogen,Urine 0.2 EU/dl (0.2)
[2024-01-30 17:52] LABS: Albumin Level 4.4 g/dl (3.5-5.0); Chloride 106 mmol/L (98-107); Potassium 3.9 mmoL/L (3.5-5.1); Sodium 143 mmol/L (136-145)
[2024-01-30 17:55] LABS: Alanine Aminotransferase 101 U/L (12-78); Albumin/Globulin Ratio 1.6 (1.1-1.8); Alkaline Phosphatase 62 U/L (38-126); Anion Gap 7.9 mEq/L (5-15); Aspartate Amino Transferase 48 U/L (17-59); Bilirubin,Total 0.8 mg/dl (0.2-1.3); Blood Urea Nitrogen 23 mg/dl (9-20); Calcium 9.3 mg/dl (8.4-10.2); Carbon Dioxide 33 mmol/L (22.0-30.0); Creatinine Clearance Estimated 84 mL/min (50-200); Estimated Glomerular Filt Rate 58 ml/min (>60); GFR (African American) 70 ML/MIN (>60); Globulin 2.7 g/dL (1.3-3.2); Glucose 122 mg/dl (74-100); Lipase 128 U/L (23-300); Total Protein,Serum 7.1 g/dl (6.3-8.2)
[2024-01-30 17:57] LABS: Appearance,Urine Slightly Cloudy (Clear)
[2024-01-30] MEDS: KETOROLAC 30MG/ML VIAL 30 MG IV (17:58)
[2024-01-30] MEDS: MORPHINE 4MG/ML SYRINGE 4 MG IV ×2 (17:58→19:57)
[2024-01-30] MEDS: ONDANSETRON 4MG/2ML VIAL 4 MG IV ×2 (17:59→20:18)
[2024-01-30] MEDS: 0.9 % SODIUM CHLORIDE 1000ML 500 ML 999 ML IV (17:59)
[2024-01-30 18:03] LABS: Bacteria,Urine Trace /lpf; RBC,Urine 20-50 #/hpf (0-3); Squamous Epithelial Cell,Urine Occasional #/hpf (0-5)
--- NOTE | 2024-01-30 18:09 | CT_ITS ---
PROCEDURE INFORMATION: Exam: CT Abdomen And Pelvis Without Contrast Exam date and time: 01/30/2024 6:34 PM Age: 53 years old Clinical indication: Abdominal pain; Additional info: Low abd pain TECHNIQUE: Imaging protocol: Computed tomography of the abdomen and pelvis without contrast. Radiation optimization: All CT scans at this facility use at least one of these dose optimization techniques: automated exposure control; mA and/or kV adjustment per patient size (includes targeted exams where dose is matched to clinical indication); or iterative reconstruction. COMPARISON: 1. CT ABDOMEN PELVIS WO CON 10/18/2019 11:[address] abdomen pelvis wo con 01/27/2018 10:53 AM 3. CR XR KUB 06/16/2023 3:13 PM FINDINGS: Liver: Normal. Gallbladder and biliary ducts: No acute process. Pancreas: Normal. Spleen: Normal. Adrenal glands: The adrenal glands appear normal. Kidneys and ureters: There are nonobstructing bilateral intrarenal calculi. Moderate left hydroureteronephrosis extending to a 5 mm distal ureteral calculus (image 109 series 3). Stomach and bowel: The stomach, small bowel, and colon are well-distended and show no evidence of wall thickening, masses, or obstruction. Appendix: No evidence of appendicitis. Intraperitoneal space: Unremarkable. Vasculature: The abdominal aorta and its major branches appear normal without evidence of aneurysm or stenosis. There are pelvic phleboliths. Lymph nodes: No lymphadenopathy. Urinary bladder: Unremarkable as visualized. Reproductive: No acute process. Bones/joints: Stable chronic compression deformity of T12 Soft tissues: There is a fat containing left inguinal hernia. IMPRESSION: Moderate left hydroureteronephrosis extending to a 5 mm distal ureteral calculus (image 109 series 3).
--- NOTE | 2024-01-30 18:37 | PC.NURSE ---
PT ARRIVED BACK TO CHAIR FROM CT VIA WHEELCHAIR
[2024-01-30] MEDS: HYDROMORPHONE 2MG/ML SYRINGE 0.5 MG IV (18:52)
[2024-01-30 19:06] LABS: HIV (1&2) Antibody Rapid NONREACTIVE (NONREACTIVE)
--- NOTE | 2024-01-30 19:50 | PC.NURSE ---
rounded on patient, patient asking for pain meds, informed
[2024-01-30 20:59] VITALS: BP 128/74; PULSE 85; RESP 18; TEMP 36.6; O2SAT 98
[2024-02-01 08:08] LABS: HCV Ab Non Reactive (Non Reactive)
== END 2024-01-30 21:00 | disposition home or self-care (01) ==
PROVIDERS: Nurse Practitioner; Emergency Provider Student in an Organized Health Care Education/Training Program; PCP Family Medicine
DX: N13.2 Hydronephrosis with renal and ureteral calculous obstruction (principal); R10.30 Lower abdominal pain, unspecified; R30.9 Painful micturition, unspecified; R11.0 Nausea; R30.0 Dysuria
CPT/HCPCS: 74176; 80053; 81001; 83690; 85025; 86803; 87389; 96361; 96374; 96375; 99284; J1171; J1885; J2270; J2405; J7030

== ENCOUNTER 2024-10-15 20:42 | Emergency (ER) | payer BC, SELFPAY ==
--- OUTSIDE RECORDS SUMMARY | 2024-09-27 12:22 | XMS_ITS | Encounter Summary ---
Author Organization [facility] Address [address] [place] [address] Care Team Providers Care Process Improvement Consultant Name Role Phone Pcp, No Primary Care Provider Unavailabl e Reason for Referral * Imaging (Routine) - Closed Specialty Diagnoses / Procedures Referred By Contac t Referred To Contact Radiology Diagnoses Chest pain, unspecified Procedures CT Angio Cardiac Coronary Arteries Jorge Adkins MD [address] [place] [address] Phone: tel: fax: Referral ID Status Reason Start Date Expiration Date Visits Re quested Visits Authorized [id number] Closed 08/25/2024 02/24/2026 1 1 Reason for Visit * Imaging (Routine) - Closed Specialty Diagnoses / Procedures Referred By Contac t Referred To Contact Radiology Diagnoses Chest pain, unspecified Procedures CT Angio Cardiac Coronary Arteries Jorge Adkins MD [address] [place] [address] Phone: tel: fax: Referral ID Status Reason Start Date Expiration Date Visits Re quested Visits Authorized [id number] Closed 08/25/2024 02/24/2026 1 1 Encounter Details Date Type Department Care Team (Latest Contact Info) Description 09/27/2024 12:22 PM EDT - 09/27/2024 1:43 PM EDT Hospital Encounter [facility] Radiology [address] [place] [address] Mesfin Parker RN CH-PAV A 5 T2 [...] (Buspar) 10 MG tablet Take 1 tablet (10 mg) by mouth 2 (two) times a day. cholecalciferol (Vitamin D-3) 1.25 MG (02918 UT) capsule Take 1 capsule (50,000 Units) by mouth 1 (one) time per week. 10/15/2023 diclofenac (Voltaren) 75 MG EC tablet Take 1 tablet (75 mg) by mouth 2 (two) times a day. ibuprofen 800 MG tablet TAKE 1 TABLET BY MOUTH THREE TIMES DAILY NEEDED FOR PAIN FOR 7 DAYS 01/31/2024 losartan (Cozaar) 50 MG tablet Take 1 tablet (50 mg) by mouth 1 (one) time each day. methocarbamol (Robaxin) 750 MG tablet Take 1 tablet (750 mg) by mouth 4 (four) times a day. 12/30/2023 omeprazole (PriLOSEC) [address] capsule Take 1 capsule (20 mg) by mouth 1 (one) time each day before breakfast. 11/25/2023 simvastatin (Zocor) 40 MG tablet Take 1 tablet (40 mg) by mouth 1 (one) time each day in the evening. zolpidem (Ambien) 10 MG tablet Take 1 tablet (10 mg) by mouth 1 (one) time each day. documented as of this encounter Miscellaneous Notes * Mesfin Hernandez RN - 09/27/2024 12:51 PM EDT Images from the original note were not included. [id number] Understanding coronary computed tomography angiography (CCTA) Coronary [...] site Last Reviewed Date: 2023 00:00:00 ?? [id number] [employer]. All rights reserved. This information is not [...] must be assessed by a doctor. Call 1 if you are alone and your reaction is more than mild sneezing or itching. If you have a mild reaction, call to speak with a Radiologist, explain that you havehad a contrast reaction, as this needs to be added to your medical record. documented in this encounter Plan of Treatment Upcoming Encounters Date Type Department Care Team (Latest Contact Info) Description 10/17/2024 8:25 AM EDT Hospital Encounter Cardiac Mechanism Inspector [address] [place] [id number] Candelaria Hahn MD [address] [place] [id number] Multiple vessel coronary artery disease 10/17/2024 8:25 AM EDT - 10/17/2024 10:40 AM EDT Surgery Cardiac Mechanism Inspector [address] [place] [address] Candelaria Hahn MD [address] [place] [address] Coronary angiography [05136 (CPT )] 03/10/2025 10:00 AM EST Office Visit [facility] Multidisciplinary Oncology Clinic [address] [place] [address] Megan Spangler MD [address] [address] documented as of this encounter Procedures Procedure [...] source 192 MDCT scanner (Somatom Force, Siemens [employer]) was used for data acquisition. A [...] 192 MDCT scanner (Somatom Force, Siem[employer] Medical Systems)was used for data acquisition. A non-contrast [...] sex as compared to their peer population (Rodri et al. J Am CollCardiol Img 2022). [...] signing this report, I, the attending physician, attestthat I have personally reviewed the images/data for the aboveexamination(s) and agree with the final edited report. Drafted by Dustin Rodriguez on 09/27/2024 2:00 PM Final report signed by Mesfin Hatch MD on 09/27/2024 4:36 PM Jorge Adkins MD IMG CT PROCEDURES Final Resul t documented in this encounter Visit Diagnoses Diagnosis Chest pain, unspecified Multiple vessel coronary artery disease Multiple vessel coronary artery disease documented in this encounter Administered Medications Inactive Administered Medications - up to 3 most recent administrations Medication Order MAR Action Action Date Dose Rate Site iohexol (OMNIPaque) 350 MG/ML injection 80 mL 80 mL, Intravenous, Once in imaging, 1 dose, Starting on Thu09/27/24 at 1227, Until Tu09/27/24 at 1254, Routine, Imaging Protocol Orders Given [...] documented as of this encounter Care Teams Process Improvement Consultant Relationship Specialty Start Date End Date Pcp, [place] [address] PCP - General Family Medicine 09/04/23 documented as of this encounter
--- OUTSIDE RECORDS SUMMARY | 2024-09-27 13:44 | XMS_ITS | Encounter Summary ---
Author Organization [facility] Address [address] [place] [address] Care Team Providers Care Machine Group Leader Name Role Phone Pcp, No Primary Care Provider Unavailabl e Reason for Referral * Imaging (Routine) - Closed Specialty Diagnoses / Procedures Referred By Contac t Referred To Contact Radiology Diagnoses Chest pain, unspecified Procedures CT Angio Cardiac Plaque Analysis Jorge Adkins MD [address] [place] [address] Phone: tel: fax: Referral ID Status Reason Start Date Expiration Date Visits Re quested Visits Authorized [id number] Closed 09/27/2024 03/29/2026 1 1 Reason for Visit * Imaging (Routine) - Closed Specialty Diagnoses / Procedures Referred By Contac t Referred To Contact Radiology Diagnoses Chest pain, unspecified Procedures CT Angio Cardiac Plaque Analysis Jorge Adkins MD [address] [place] [address] Phone: tel: fax: Referral ID Status Reason Start Date Expiration Date Visits Re quested Visits Authorized [id number] Closed 09/27/2024 03/29/2026 1 1 Encounter Details Date Type Department Care Team (Latest Contact Info) Description 09/27/2024 1:44 PM EDT - 09/27/2024 4:43 PM EDT Hospital Encounter [facility] [address] [place] [address] Chest pain, unspecified Discharge Disposition: Home or [...] a day. cholecalciferol (Vitamin D-3) 1.25 MG (10526 UT) capsule Take 1 capsule (50,000 Units) [...] each day. documented as of this encounter Plan of Treatment Upcoming Encounters Date Type Department Care Team (Latest Contact Info) Description 10/17/2024 8:25 AM EDT Hospital Encounter Cardiac Director Of Outreach [address] [place] [address] Candelaria Hahn MD [address] [place] [address] Multiple vessel coronary artery disease 10/17/2024 8:25 AM EDT - 10/17/2024 10:40 AM EDT Surgery Cardiac Director Of Outreach [address] [place] [address] Candelaria Hahn MD [address] [place] [address] Coronary angiography [87734 (CPT )] 03/10/2025 10:00 AM EST Office Visit [facility] [address] [place] [address] Megan Spangler MD [address] [place] [address] documented as of this encounter Procedures Procedure [...] coronary artery disease documented in this encounter Additional Health Concerns Assessment Noted Time A fall risk assessment has been complete d for the patient 03/18/2024 2:36 PM EST A Body Mass Index follow-up plan has been documented for the patient 01/29/2024 3:48 PM EST documented as of this encounter Care Teams Machine Group Leader Relationship Specialty Start Date End Date Pcp, Machelle [address] [place] [address] PCP - General Family Medicine 09/04/23 documented as of this encounter
--- OUTSIDE RECORDS SUMMARY | 2024-09-27 16:44 | XMS_ITS | Encounter Summary ---
Author Organization [facility] Address [address] [place] [address] Care Team Providers Care Salesperson Burial Plots Name Role Phone Pcp, No Primary Care Provider Unavailabl e Reason for Referral * Imaging (Routine) - Closed Specialty Diagnoses / Procedures Referred By Drewac t Referred To Contact Radiology Diagnoses Chest pain, unspecified Procedures CT Angio Cardiac FFR Jorge Adkins MD [facility] [place] [address] Phone: tel: fax: Referral ID Status Reason Start Date Expiration Date Visits Re quested Visits Authorized [id number] Closed 09/27/2024 03/29/2026 1 1 Reason for Visit * Imaging (Routine) - Closed Specialty Diagnoses / Procedures Referred By Contac t Referred To Contact Radiology Diagnoses Chest pain, unspecified Procedures CT Angio Cardiac FFR Jorge Adkins MD [address] [place] [address] Phone: tel: fax: Referral ID Status Reason Start Date Expiration Date Visits Re quested Visits Authorized [id number] Closed 09/27/2024 03/29/2026 1 1 Encounter Details Date Type Department Care Team (Latest Contact Info) Description 09/27/2024 4:44 PM EDT - 09/27/2024 11:59 PM EDT Hospital Encounter [facility] [address] [place] [address] Chest pain, unspecified Discharge Disposition: Home or [...] a day. cholecalciferol (Vitamin D-3) 1.25 MG (80854 UT) capsule Take 1 capsule (50,000 Units) [...] 10/17/2024 8:25 AM EDT Hospital Encounter Cardiac Registered Nurse [facility] [address] [place] [address] Candelaria Hahn MD [address] [place] [address] Multiple vessel coronary artery disease 10/17/2024 8:25 AM EDT - 10/17/2024 10:40 AM EDT Surgery Cardiac Registered Nurse [facility] [address] [place] [address] Candelaria Hahn MD [address] [place] [address] Coronary angiography [81597 (CPT )] 03/10/2025 10:00 AM EST Office Visit [facility] [address] [place] [address] Megan Spangler MD [address] [place] [address] documented as of this encounter Procedures [...] documented as of this encounter Care Teams Salesperson Burial Plots Relationship Specialty Start Date End Date Pcp, Machelle [address] [place] [address] PCP - General Family Medicine 09/04/23 documented as of this encounter
[2024-10-15] VITALS (8 sets, daily range): BP systolic 116–125; BP diastolic 77–87; PULSE 71–86; RESP 16; TEMP 36.6; O2SAT 95–97; BMI 29.8
--- NOTE | 2024-10-15 20:49 | ED_ITS ---
<Statement entered by Lori Huynh DO - 10/17/24 15:28> I was consulted by the MERYL, and we discussed the complexity of problems being addressed. I approve the treatment and management plan for this patient's care in the emergency department, thus performing a substantial portion of the medical decision making. Lori Huynh DO Discharge Plan Disposition Patient Disposition: Home, Self-Care Condition: Good Prescriptions Prescriptions: No Action zolpidem [Ambien] 10 mg tablet 10 mg PO QHS PRN (Reason: Sleep) cholecalciferol (vitamin D3) 1,000 unit capsule 5,000 unit PO DAILY losartan 50 mg tablet 50 mg PO DAILY Patient Comments: TAKE 1 TABLET BY MOUTH ONCE DAILY simvastatin 40 mg tablet 40 mg PO DAILY Patient Comments: TAKE 1 TABLET BY MOUTH ONCE DAILY IN THE EVENING buspirone 10 mg tablet 10 mg PO BID Patient Comments: TAKE 1 TABLET BY MOUTH TWICE DAILY levofloxacin 500 mg tablet 500 mg PO DAILY 10 Days Qty: 10 0RF diclofenac sodium 75 mg tablet,delayed release (DR/EC) 75 mg PO DAILY Patient Comments: TAKE 1 TABLET BY MOUTH TWICE DAILY ibuprofen 800 mg tablet 800 mg PO TID PRN (Reason: pain) 7 Days Qty: 20 0RF hydrocodone-acetaminophen 5-325 mg tablet 1 tab PO Q6H PRN (Reason: pain) 3 Days Qty: 12 0RF tamsulosin [Flomax] 0.4 mg capsule 0.4 mg PO DAILY 7 Days Qty: 7 0RF ondansetron 4 mg tablet,disintegrating 4 mg PO Q6H PRN (Reason: nausea and vomiting) 5 Days Qty: 20 0RF omeprazole 20 MG capsule,delayed release(DR/EC) 20 mg PO DAILY Referrals Follow up/Referrals: Maki Parish MD [Primary Care Provider, Medical] - See instructions Moe Summers DO [Staff Physician, Orthopedics] - See instructions Activity Restrictions/Add. Instructions Additional Instructions/Restrictions: You will need to keep the splint on at all times until you follow-up in clinic with Dr. Summers who is the orthopedic doctor. His number and referral is in the paperwork. Call on Thursday morning to let them know that you need an appointment. Return to the emergency department for any acute or worsening symptoms. Clinical Impressions Clinical Impression: Avulsion fracture of distal phalanx of finger, Mallet deformity of index finger Print Language Print Language: Tanzanian Discharge ED Provider: Lori Huynh General Adult HPI <DEBORAH Wilde - Last Filed: 10/15/24 21:57> General Chief complaint: Extremity Injury, Upper Stated complaint: Possible Broken R Pointer Finger Time Seen by Provider: 10/15/24 20:49 Mode of Arrival: Ambulatory Source of Information: Patient and Spouse Limitations: No Limitations History of Present Illness HPI narrative: 54-year-old male presents the emergency department accompanied by his spouse for a right second digit/index finger injury, patient states he was cutting some limbs when a limb fell on the top of my finger , denies limb striking the head, denies any laceration or other injury, denies any fever chills chest pain shortness of breath nausea vomiting constipation diarrhea no abdominal pain no urinary symptomatology, no numbness or tingling, patient is been noted move the affected extremity but his pain limited range of motion, no radicular symptomatology, no neck pain or back pain, patient denies any alcohol tobacco or drug use, other past medical history is consistent with previous nephroli thiasis, BPH, hypertension, GERD, hyperlipidemia, anxiety/depression. Initial triage vitals are unremarkable. Patient is not yet take anything for the pain. Please note that above description of symptoms, in this electronic medical record under categorization of recalled from ER triage doctor by RN are reflective of an initial nursing assessment, however, is not reflective of my full history and physical exam that was personally taken and clarified. Consequentially, this preceding description of symptoms, which may include the patient's categorized chief complaint in the EMR, do not reflect my personal clinical impression, and the ultimate description of history of present illness and patient stated complaints should be deferred to this section of the note. Unless stated otherwise or congruent with this section of the note, additional signs, symptoms, or incongruence should be interpreted as inaccurate with my clinical impression. Onset (ago): hour(s) Related Data Home Medications ?Medication ?Instructions ?Recorded ?Confirmed cholecalciferol (vitamin D3) 25 5,000 unit PO DAILY [place] pplement 02/04/18 11/23/23 mcg (1,000 unit) capsule zolpidem 10 mg tablet (Ambien) 10 mg PO QHS PRN Sleep 02/04/18 11/23/23 omeprazole 20 mg capsule,delayed 20 mg PO DAILY GERD 0 09/23/19 11/23/23 release buspirone 10 mg tablet 10 mg PO BID 11/16/23 losartan 50 mg tablet 50 mg PO DAILY 11/16/2310/26 simvastatin 40 mg tablet 40 mg PO DAILY 11/16/2310/26 diclofenac sodium 75 mg 75 mg PO DAILY 11/23/2310/26 tablet,delayed release Previous Rx's ?Medication ?Instructions ?Recorded levofloxacin 500 mg tablet 500 mg PO DAILY 10 days #10 tabs 11/16/23 hydrocodone 5 mg-acetaminophen 325 1 tab PO Q6H PRN pa in 3 days #12 01/30/24 mg tablet tabs ibuprofen 800 mg tablet 800 mg PO TID PRN pain 7 day s #20 01/30/24 tabs ondansetron 4 mg disintegrating 4 mg PO Q6H PRN nausea and 01/30/24 tablet vomiting 5 days #20 tabs tamsulosin 0.4 mg capsule (Flomax) 0.4 mg PO DAILY 7 d ays #7 caps 01/30/24 Allergies Allergy/AdvReac Type Severity Reaction Status Date / Time No Known Allergies Allergy Verified 11/23/23 11:29 [facility] <DEBORAH Wilde - Last Filed: 10/15/24 21:57> [facility] Disclaimer: The information contained in this section may have been updated after the patient was seen, as this information can be updated by other users. Medical History History of diverticulosis History of BPH History of prostatitis Hx of gastroesophageal reflux (GERD) History of hyperlipidemia History of hypertension Surgical History History of tonsillectomy History of esophagogastroduodenoscopy (EGD) Hx of colonoscopy Family History Other No significant family history Social History Smoking Status: Never smoker alcohol intake: never substance use type: denies use current occupational status: employed Travel in the last 8 weeks?: None household members: spouse and family housing: house caffeine: Yes Other Medical History Have you received the Flu Vaccine for this season: No Have you received the Pneumonia Vaccine: No <DEBORAH Wilde - Last Filed: 10/15/24 21:57> ROS Obtained: Yes All systems reviewed & no additional complaints except as documented Physical Exam <DEBORAH Wilde - Last Filed: 10/15/24 21:57> General General appearance: alert and in no apparent distress Head Head exam: atraumatic and normocephalic Eye Eye exam: Present PERRL and EOMI ENT ENT exam: Present mucous membranes moist Neck Neck exam: Present normal inspection Chest Chest inspection: Present normal inspection and symmetric chest wall rise Respiratory Respiratory exam: Present normal lung sounds bilaterally; Absent respiratory distress Cardiovascular Cardiovascular exam: Present regular rate and normal rhythm Abdominal Exam Abdominal exam: Present soft; Absent tenderness Extremities Exam Extremities exam: Present tenderness and other (There is a obvious what appears to be swan-neck deformity to the DIP of the patient's second digit/index finger, patient moves extremity to command but is somewhat pain limiting, has good finger opposition, no obvious other fracture or traumatic deformity, otherwise neurovascular intact, no pain pal); Absent normal inspection or full ROM Neurological Exam Neurological exam: Present alert and oriented X3 Psychiatric Psychiatric exam: Present normal affect Skin Skin exam: Present warm and dry Medical Decision Making <DEBORAH Wilde - Last Filed: 10/15/24 21:57> Medical Records Medical records reviewed: Yes I reviewed the patient's medical records. Screening: Per USPSTF and CDC recommendations, given the prevalence of disease in our region, it is our hospital?s policy to screen for HIV and viral Hepatitis for all patients aged 18 and over and those with ongoing risk factors. Wes Inquiry Pt receiving controlled substance: No Wes was queried for this patient: No Vital Signs: 10/15/24 20:50 10/15/24 21:00 10/15/24 21:16 Temperature 97.9 F Temperature Source Oral Pulse Rate 75 78 Pulse Rate [Right Radial] 86 Respiratory Rate 16 Blood Pressure 123/77 122/87 Blood Pressure [Right Arm] 116/85 Blood Pressure Mean [Right Arm] 95 Blood Pressure Source Blood Pressure Source [Right Arm] Automatic Cuff Blood Pressure Position Blood Pressure Position [Right Arm] Supine 02 Sat by Pulse Oximetry 97 97 96 Oxygen Delivery Method Room Air 10/15/24 21:30 10/15/24 21:45 10/15/24 22:01 Temperature Temperature Source Pulse Rate 75 76 73 Pulse Rate [Right Radial] Respiratory Rate Blood Pressure 122/84 121/79 122/83 Blood Pressure [Right Arm] Blood Pressure Mean [Right Arm] Blood Pressure Source Blood Pressure Source [Right Arm] Blood Pressure Position Blood Pressure Position [Right Arm] 02 Sat by Pulse Oximetry 95 95 96 Oxygen Delivery Method 10/15/24 22:16 10/15/24 23:12 Temperature 97.9 F Temperature Source Oral Pulse Rate 71 72 Pulse Rate [Right Radial] Respiratory Rate 16 Blood Pressure 124/86 125/79 Blood Pressure [Right Arm] Blood Pressure Mean [Right Arm] Blood Pressure Source Automatic Cuff Blood Pressure Source [Right Arm] Blood Pressure Position Supine Blood Pressure Position [Right Arm] 02 Sat by Pulse Oximetry 96 Oxygen Delivery Method Room Air Orders (Tests/Meds): ED MEDICATIONS Discontinued Medications Generic Name Dose Route Start Last Admin Trade Name Freq PRN Reason Stop Dose Admin Ibuprofen 600 mg 10/15/24 20:52 10/15/24 21:09 Ibuprofen 600 Mg Tablet PO 10/15/24 20:53 600 mg ONCE ONE Administration ORDERS Category Date Time Status XR hand RT min 3V Stat Exams 10/15/24 20:51 Completed Medical Decision Narrative: 54-year-old male presents the emergency department with a right second digit/index finger injury, see HPI for detail past medical history, differential diagnosis include but not limited to flexion/extension injury of the finger, finger sprain/strain, finger fracture, among others. Obtain x-ray of the hand for further evaluation/characterization will give 600 mg p.o. Motrin for pain. I discussed this patient's case with attending physician Dr. Huynh at shift change she will be assuming remainder the patient's care/workup, disposition is pending formal x-ray reads. <Lori Huynh, DO - Last Filed: 10/17/24 15:27> Vital Signs: 10/15/24 20:50 10/15/24 21:00 10/15/24 21:16 Temperature 97.9 F Temperature Source Oral Pulse Rate 75 78 Pulse Rate [Right Radial] 86 Respiratory Rate 16 Blood Pressure 123/77 122/87 Blood Pressure [Right Arm] 116/85 Blood Pressure Mean [Right Arm] 95 Blood Pressure Source Blood Pressure Source [Right Arm] Automatic Cuff Blood Pressure Position Blood Pressure Position [Right Arm] Supine 02 Sat by Pulse Oximetry 97 97 96 Oxygen Delivery Method Room Air 10/15/24 21:30 10/15/24 21:45 10/15/24 22:01 Temperature Temperature Source Pulse Rate 75 76 73 Pulse Rate [Right Radial] Respiratory Rate Blood Pressure 122/84 121/79 122/83 Blood Pressure [Right Arm] Blood Pressure Mean [Right Arm] Blood Pressure Source Blood Pressure Source [Right Arm] Blood Pressure Position Blood Pressure Position [Right Arm] 02 Sat by Pulse Oximetry 95 95 96 Oxygen Delivery Method 10/15/24 22:16 10/15/24 23:12 Temperature 97.9 F Temperature Source Oral Pulse Rate 71 72 Pulse Rate [Right Radial] Respiratory Rate 16 Blood Pressure 124/86 125/79 Blood Pressure [Right Arm] Blood Pressure Mean [Right Arm] Blood Pressure Source Automatic Cuff Blood Pressure Source [Right Arm] Blood Pressure Position Supine Blood Pressure Position [Right Arm] 02 Sat by Pulse Oximetry 96 Oxygen Delivery Method Room Air Orders (Tests/Meds): ED MEDICATIONS Discontinued Medications Generic Name Dose Route Start Last Admin Trade Name Freq PRN Reason Stop Dose Admin Ibuprofen 600 mg 10/15/24 20:52 10/15/24 21:09 Ibuprofen 600 Mg Tablet PO 10/15/24 20:53 600 mg ONCE ONE Administration ORDERS Category Date Time Status XR hand RT min 3V Stat Exams 10/15/24 20:51 Completed Medical Decision Narrative: 54-year-old male presents the emergency department with a right second digit/index finger injury, see HPI for detail past medical history, differential diagnosis include but not limited to flexion/extension injury of the finger, finger sprain/strain, finger fracture, among others. Obtain x-ray of the hand for further evaluation/characterization will give 600 mg p.o. Motrin for pain. I discussed this patient's case with attending physician Dr. Huynh at shift change she will be assuming remainder the patient's care/workup, disposition is pending formal x-ray reads. Lori Huynh, I assumed care of the patient at 2200. Final x-rays were read by radiology, they reported a avulsion fracture of the dorsal aspect of the distal DIP of the second digit. That patient was a unable to fully extend the distal phalanx, I had concern for extensor tendon injury. I discussed the case with Dr. Summers, orthopedics and he felt comfortable with the plan of placing patient into an extensor finger splint and having him follow-up in clinic. Patient was advised to keep the splint on at all times until he follows up with clinic. Patient was otherwise discharged home in stable condition. Procedures <Lori Huynh DO - Last Filed: 10/17/24 15:27> Orthopedic Splinting/Casting Injury #1: Side: right Upper Extremity Injury Location: finger Upper Extremity Immobilizer: aluminum form splint and finger (other) Post Cast/Splinting Neuro Status: intact Post Cast/Splinting Vasc Status: intact Critical Care <DEBORAH Wilde - Last Filed: 10/15/24 21:57> Critical Care Time Critical Care Time: No
--- NOTE | 2024-10-15 20:51 | XR_ITS ---
PROCEDURE INFORMATION: Exam: XR Right Hand Exam date and time: 10/15/2024 9:01 PM Age: 54 years old Clinical indication: Injury or trauma; Other: Tree fell on 2nd digit; Crushing; Right; Index finger; Additional info: First digit injury TECHNIQUE: Imaging protocol: Radiologic exam of the right hand. Views: 3 or more views. Total images: 3 COMPARISON: No relevant prior studies available. FINDINGS: Bones/joints: Acute cortical avulsion fracture base of the distal phalanx of the index finger. Mild degenerative change interphalangeal joint of the thumb. Remote deformity ulnar styloid process. No concerning bone lesions or calcifications. Soft tissues: Mild soft tissue swelling index finger. IMPRESSION: Acute cortical avulsion fracture at the dorsal base of the distal phalanx index finger.
--- OUTSIDE RECORDS SUMMARY | 2024-10-15 20:56 | XMS_ITS | Encounter Summary ---
Author Organization Healthcare Address [address] [place] [address] Care Team Providers Care Requirements Engineer Name Role Phone Pcp, No Primary Care Provider Unavailabl e Encounter Details Date Type Department Care Team (Latest Contact Info) Description 10/10/2024 Travel Social History Tobacco Use Types Packs/Day Years [...] on file documented as of this encounter Plan of Treatment Upcoming Encounters Date Type Department Care Team (Latest Contact Info) Description 10/17/2024 8:25 AM EDT Hospital Encounter Cardiac Facilities Maintenance Engineer [address] [place] [phone] Candelaria Hahn MD [address] [place] [address] Multiple vessel coronary artery disease 10/17/2024 8:25 AM EDT - 10/17/2024 10:40 AM EDT Surgery Cardiac Facilities Maintenance Engineer [address] [place] [phone] Candelaria Hahn MD [address] [place] [phone] Coronary angiography [[id number] (CPT )] 03/10/2025 10:00 AM EST Office Visit [facility] Multidisciplinary Oncology Clinic [address] [place] [address] Megan Spangler MD [address] [place] [address] documented as of this encounter Goals Goal Patient Goal Type Associated Problems Recent Progress Patient-Stated? Author Autogenerat ed Goal Care Plan Autogenerated Problem No Ramesh Díaz documented as of this encounter Visit Diagnoses Not on filedocumented in this encounter Additional Health Concerns Active Problems Noted Date Diagnosed Date Autogenerated Problem 10/07/2024 Assessment Noted Time A fall risk assessment has been complete d for the patient 03/18/2024 2:36 PM EST A Body Mass Index follow-up plan has been documented for the patient 01/29/2024 3:48 PM EST documented as of this encounter Care Teams Requirements Engineer Relationship Specialty Start Date End Date Pcp, No [address] [place] [address] PCP - General Family Medicine 09/04/23 documented as of this encounter
--- OUTSIDE RECORDS SUMMARY | 2024-10-15 20:56 | XMS_ITS | Clinical Summary ---
Author Organization [facility] Address [address] [place] [id number] Phone [email or web address] Care Team Providers Care Labor Training Manager Name Role Phone Jem Guillermo Primary Care Provider [phone] Allergies Active Allergy Reactions Criticality Noted Date Comments Aspirin 10/07/2011 Medications busPIRone (BUSPAR) 10 MG tablet TAKE 1 2 (ONE HALF) TABLET BY MOUTH TWICE DAILY 0 Active omeprazole (PriLOSEC) [address] capsule TAKE 1 CAPSULE BY MOUTH IN THE MORNING BEFORE MORNING MEAL 0 Active zolpidem (AMBIEN) 10 MG tablet Take 10 mg by mouth at night if needed. 0 Active simvastatin (ZOCOR) 40 MG tablet Take 40 mg by mouth 1 (one) time each day in the evening. 0 Active diclofenac (VOLTAREN) 75 MG EC tablet Take 75 mg by mouth 2 (two) times a day. 0 Active losartan (COZAAR) 50 MG tablet Take 50 mg by mouth 1 (one) time each day. 1 Active D3-50 1.25 MG (25869 UT) capsule TAKE 1 CAPSULE BY MOUTH TWICE WEEKLY FOR 30 DAYS. 4 Active ondansetron ODT (ZOFRAN-ODT) 4 MG dispersible tablet DISSOLVE 1 TABLET IN MOUTH EVERY 6 HOURS NEEDED FOR NAUSEA AND VOMITING FOR 5 DAYS 4 Active Active Problems No known active problems Social History Tobacco Use Types Packs/Day Years Used Date Smoking Tobacco: Never Smokeless Tobacco: Never Tobacco Cessation:Counseling Given: Not Answered Intimate Partner Violence Answer Date R ecorded Insults You Not on file 06/05/2020 Threatens You Not on file 06/05/2020 Screams at You Not on file 06/05/2020 Physically Hurt Not on file 06/05/2020 Intimate Partner Violence Score Not on file 06/05/2020 Depression Answer Date Recorded PHQ Total Score 0 11/25/2023 Stress Answer Date Recorded Stress in your Life Not on file 12/28/2023 Dealing with Stress 3 12/28/2023 Sex and Gender Information Value Date Recorded Sex Assigned at Not on file Legal Sex Male 7:36 AM CDT Gender Identity Not on file Sexual Orientation Not on file Last Filed Vital Signs Vital Sign Reading Time Taken Comments Blood Pressure 131/88 03/04/2024 6:40 AM EST Pulse 60 03/04/2024 6:40 AM EST Temperature 36.3 C (97.4 F) 03/04/2024 6:40 AM EST Respiratory Rate 16 03/04/2024 6:40 AM EST Oxygen Saturation 99% 03/04/2024 6:40 AM EST Inhaled Oxygen Concentration - - Weight 88 kg (194 lb) 12/20/2012 3:21 PM CDT Height 177.8 cm (5' 10 ) 12/20/2012 3:21 PM CDT Body Mass Index 27.84 12/20/2012 3:21 PM CDT Plan of Treatment Health Maintenance Due Date Last Done Comments CT Colonography 1970 Colonoscopy 1970 Colorectal Cancer Screening Combo 1970 DNA Cologuard 1970 Dental Cleaning/Exam 1970 FIT or FOBT Test 1970 HIV Screening 1970 Hepatitis C Screening 1970 Sigmoidoscopy 1970 Annual Preventive Exam 1988 Hep B Infection Screening - Triple Screen 1988 Hepatitis B Immunization (1 of 3 - 19+ 3-dose series) 1989 Tetanus Diphtheria and Pertussis Immunization (1 - Tdap) 1989 Zoster Immunization (1 of 2) 2020 Covid-19 Immunization (4 - season) 2023 02/14/2021, 06/06/2020, 05/09/2020 Influenza Immunization (#1) 10/24/202411/24, 11/28/2021, 12/09/2018, Additional history exists HIB Immunization Aged Out No longer e ligible based on patient's age to complete this topic HPV Immunization Aged Out No longer e ligible based on patient's age to complete this topic Hepatitis A Immunization Aged Out No longer eligible based on patient's age to complete this topic Pneumococcal: Ped (0 to 5 Yrs) and At-Risk Member (6 to 64 Yrs) Aged Out No longer eligible based on patient's age to complete this topic Polio Immunization Aged Out No longer eligible based on patient's age to complete this topic Insurance [employer] [place] [address] [facility] [id number] [place] [address] Care Teams Labor Training Manager Relationship Specialty Start Date End Date Guillermo Parish [address] [address] PCP - General Family Medicine 10/24/19
--- OUTSIDE RECORDS SUMMARY | 2024-10-15 20:56 | XMS_ITS | Encounter Summary ---
Author Organization Healthcare Address [address] [place] [address] Care Team Providers Care Cellophane Wrapping Examiner Name Role Phone Pcp, No Primary Care Provider Unavailabl e Encounter Details Date Type Department Care Team (Latest Contact Info) Description 09/20/2024 Travel Social History Tobacco Use Types Packs/Day [...] 10/17/2024 8:25 AM EDT Hospital Encounter Cardiac Identification Officer [address] [place] [phone] Candelaria Hahn MD [address] [place] [address] Multiple vessel coronary artery disease 10/17/2024 8:25 AM EDT - 10/17/2024 10:40 AM EDT Surgery Cardiac Identification Officer [address] [place] [phone] Candelaria Hahn MD [address] [place] [phone] Coronary angiography [[id number] (CPT )] 03/10/2025 10:00 AM EST Office Visit [facility] [address] [place] [address] Megan Spangler MD [address] [facility] [address] [place] [address] documented as of this encounter Visit Diagnoses Not on filedocumented in this encounter Additional Health Concerns Assessment Noted Time A fall risk assessment has been complete d for the patient 03/18/2024 2:36 PM EST A Body Mass Index follow-up plan has been documented for the patient 01/29/2024 3:48 PM EST documented as of this encounter Care Teams Cellophane Wrapping Examiner Relationship Specialty Start Date End Date Pcp, No [address] [place] [address] PCP - General Family Medicine 09/04/23 documented as of this encounter
--- OUTSIDE RECORDS SUMMARY | 2024-10-15 20:56 | XMS_ITS | Clinical Summary ---
Author Organization [facility] Address [address] [place] [address] Care Team Providers Care Computing Consultant Name Role Phone Pcp, No Primary Care Provider Unavailabl e Allergies Active Allergy Reactions Criticality Noted Date Comments Aspirin Other - please docum ent in the comment field Low 10/07/2011 Nose bleeds Medications simvastatin (Zocor) 40 MG tablet Take 1 tablet (40 mg) by mouth 1 (one) time each day in the evening. Active diclofenac (Voltaren) 75 MG EC tablet Take 1 tablet (75 mg) by mouth 2 (two) times a day. Active omeprazole (PriLOSEC) [address] capsule Take 1 capsule (20 mg) by mouth 1 (one) time each day before breakfast. 11/25/2023 Active busPIRone (Buspar) 10 MG tablet Take 1 tablet (10 mg) by mouth 2 (two) times a day. Active losartan (Cozaar) 50 MG tablet Take 1 tablet (50 mg) by mouth 1 (one) time each day. Active cholecalciferol (Vitamin D-3) 1.25 MG (61806 UT) capsule Take 1 capsule (50,000 Units) by mouth 1 (one) time per week. 10/15/2023 Active zolpidem (Ambien) 10 MG tablet Take 1 tablet (10 mg) by mouth 1 (one) time each day. Active methocarbamol (Robaxin) 750 MG tablet Take 1 tablet (750 mg) by mouth 4 (four) times a day. 12/30/2023 Active ibuprofen 800 MG tablet TAKE 1 TABLET BY MOUTH THREE TIMES DAILY NEEDED FOR PAIN FOR 7 DAYS 01/31/2024 Active Active Problems Problem Noted Date Diagnosed Date Inflammatory disease of prostate, unspecified Encounters Date Type Department Care Team Description 10/10/2024 Travel 09/27/2024 4:44 PM EDT - 09/27/2024 11:59 PM EDT Hospital Encounter [facility] [address] [place] [address] Chest pain, unspecified Discharge Disposition: Home or Self Care 09/27/2024 1:44 PM EDT - 09/27/2024 4:43 PM EDT Hospital Encounter [facility] [address] [place] [address] Chest pain, unspecified Discharge Disposition: Home or Self Care 09/27/2024 12:22 PM EDT - 09/27/2024 1:43 PM EDT Hospital Encounter [facility] [address] [place] [address] Mesfin Jacobsen RN Chest pain, unspecified Discharge Disposition: Home or Self Care 09/27/2024 Travel 09/20/2024 Travel 09/20/2024 Telephone [facility] [address] [place] [address] Harmony Muñoz, RN from Last 3 Months Family History Medical History Relation Name Comments Prostate cancer Other great uncle Relation Name Status Comments Other great uncle Social History Tobacco Use Types Packs/Day Years Used Date Smoking Tobacco: Never Smokeless Tobacco: Never Tobacco Cessation:Counseling Given: Not Answered Alcohol Use Standard Drinks/Week Comments Never 0 [...] Pulse 73 09/27/2024 1:03 PM EDT Temperature 37 C (98.6 F) 03/18/2024 2:36 PM EST Respiratory Rate 16 09/27/2024 1:03 PM EDT Oxygen Saturation 99% 09/27/2024 1:03 PM EDT Inhaled Oxygen Concentration - - Weight 92.1 kg (203 lb 0.7 oz) 09/27/2024 12:35 PM EDT Height 177.8 cm (5' 10 ) 09/27/2024 12:35 PM EDT Body Mass Index 29.13 09/27/2024 12:35 PM EDT Plan of Treatment Upcoming Encounters Date Type Department Care Team (Latest Contact Info) Description 10/17/2024 8:25 AM EDT Hospital Encounter Cardiac Maintenance And Utilities Supervisor [address] [place] [phone] Candelaria Hahn MD [address] [place] [phone] Multiple vessel coronary artery disease 10/17/2024 8:25 AM EDT - 10/17/2024 10:40 AM EDT Surgery Cardiac Maintenance And Utilities Supervisor [address] [place] [phone] Candelaria Hahn MD [address] [place] [address] Coronary angiography [05928 (CPT )] 03/10/2025 10:00 AM EST Office Visit [facility] [address] [place] [phone] Megan Spangler MD [address] [place] [address] Health Maintenance Due Date Last Done Comments [facility]-HIV Screening 1970 [facility]-Hepatitis C Screening 1970 [facility]-Infant/Child/Adol SDOH Screenings 1970 [facility]- SDOH Screenings 1988 [facility]-Adult SDOH Screenings 1988 [facility]-DTaP,Tdap,and Td Vaccines (1 - Tdap) 1989 [facility]-Hepatitis B Vaccines (1 of 3 - 19+ 3-dose series) 1989 CT Colonography 09/27/2015 Colonoscopy 09/27/2015 FIT-DNA 09/27/2015 FIT 09/27/2015 FOBT 09/27/2015 Sigmoidoscopy 09/27/2015 [facility]-Colorectal Cancer Screening 09/27/2015 [facility]-Pneumococcal Vaccine: 50+ Years (1 of 1 - PCV) 2020 [facility]-Zoster Vaccines (1 of 2) 2020 [id number] Vaccine (4 - season) 2023 02/14/2021, 06/06/2020, 05/09/2020 [facility]-Influenza Vaccine (#1) 10/24/202411/06, 12/12/2022, 11/28/2021, Additional history exists [facility]-Depression Screening 01/25/2025 01/26/2024 [facility]-Obesity Intervention Completed 01/26/2024 HPV Vaccines Aged Out No longer eligi ble based on patient's age to complete this topic [facility]-HIB Vaccines Aged Out No longer e ligible based on patient's age to complete this topic [facility]-Hepatitis A Vaccines Aged Out No longer eligible based on patient's age to complete this topic [facility]-IPV Vaccines Aged Out No longer e ligible based on patient's age to complete this topic [facility]-Rotavirus Vaccines Aged Out No lo nger eligible based on patient's age to complete this topic Goals Goal Patient Goal Type Associated Problems Recent Progress Patient-Stated? Author Autogenerat ed Goal Care Plan Autogenerated Problem No Bre, Ramesh O Procedures Procedure Name Priority Date/Time Associated Diagnosis Comments CT ANGIO CARDIAC FFR Routine 09/27/2024 4:44 PM EDT Chest pain, unspecified CT ANGIO CARDIAC PLAQUE ANALYSIS Routine 09/27/2024 1:44 PM EDT Chest pain, unspecified CT ANGIO CARDIAC CORONARY ARTERIES Routine 09/27/2024 1:03 PM EDT Chest pain, unspecified from Last 3 Months Results * CT Angio Cardiac FFR (09/27/2024 [...] Mesfin Hatch MD on 09/28/2024 9:28 AM us Jorge Adkins MD IMG CT PROCEDURES Final Resul t * CT Angio Cardiac Plaque Analysis (09/27/2024 [...] MD IMG CT PROCEDURES Final Resul t * CT Angio Cardiac Coronary Arteries (09/27/2024 [...] peer population (Rodri et al. J Am Tato Cardiol Img [...] Mesfin Hatch MD on 09/27/2024 4:36 PM us Jorge Adkins MD IMG CT PROCEDURES Final Resul t from Last 3 Months Additional Health Concerns Active Problems Noted Date Diagnosed Date Autogenerated Problem 10/07/2024 Insurance ANTH Care Teams Computing Consultant Relationship Specialty Start Date End Date Pcp, Machelle [address] [place] [address] PCP - General Family Medicine 09/04/23
--- OUTSIDE RECORDS SUMMARY | 2024-10-15 20:56 | XMS_ITS | Encounter Summary ---
Author Organization [facility] Address [address] [place] [address] Care Team Providers Care Truck Body Repairer Name Role Phone Pcp, No Primary Care Provider Unavailabl e Encounter Details Date Type Department Care Team (Latest Contact Info) Description 09/27/2024 Travel Social History Tobacco Use Types Packs/Day [...] 10/17/2024 8:25 AM EDT Hospital Encounter Cardiac Supervisor [place] [address] [place] [phone] Candelaria Hahn MD [address] [place] [address] Multiple vessel coronary artery disease 10/17/2024 8:25 AM EDT - 10/17/2024 10:40 AM EDT Surgery Cardiac Supervisor [place] [address] [place] [phone] Candelaria Hahn MD [address] [place] [phone] Coronary angiography [[id number] (CPT )] 03/10/2025 10:00 AM EST Office [facility] [address] [place] [address] Megan Spangler MD [address] [facility] [address] [place] [address] documented as of this encounter Visit Diagnoses Not on filedocumented in this encounter Additional Health Concerns Assessment Noted Time A fall risk assessment has been complete d for the patient 03/18/2024 2:36 PM EST A Body Mass Index follow-up plan has been documented for the patient 01/29/2024 3:48 PM EST documented as of this encounter Care Teams Truck Body Repairer Relationship Specialty Start Date End Date Pcp, No [address] [place] [address] PCP - General Family Medicine 09/04/23 documented as of this encounter
--- OUTSIDE RECORDS SUMMARY | 2024-10-15 20:56 | XMS_ITS | Encounter Summary ---
Author Organization [facility] Address [address] [place] [address] Care Team Providers Care Buggy Driver Name Role Phone Pcp, No Primary Care Provider Unavailabl e Encounter Details Date Type Department Care Team (Late st Contact Info) Description 09/20/2024 Telephone [facility] [address] [place] [address] Harmony Muñoz RN [facility] Social History Tobacco Use Types Packs/Day Years [...] 10/17/2024 8:25 AM EDT Hospital Encounter Cardiac Poll Clerk [address] [place] [phone] Candelaria Hahn MD [address] [place] [address] Multiple vessel coronary artery disease 10/17/2024 8:25 AM EDT - 10/17/2024 10:40 AM EDT Surgery Cardiac Poll Clerk [address] [place] [phone] Candelaria Hahn MD [address] [place] [address] Coronary angiography [[id number] (CPT )] 03/10/2025 10:00 AM EST Office Visit [facility] [address] [place] [address] Megan Spangler MD [address] [place] [address] documented as of this encounter Visit Diagnoses Not on filedocumented in this encounter Additional Health Concerns Assessment Noted Time A fall risk assessment has been complete d for the patient 03/18/2024 2:36 PM EST A Body Mass Index follow-up plan has been documented for the patient 01/29/2024 3:48 PM EST documented as of this encounter Care Teams Buggy Driver Relationship Specialty Start Date End Date Pcp, No [address] [place] [address] PCP - General Family Medicine 09/04/23 documented as of this encounter
--- OUTSIDE RECORDS SUMMARY | 2024-10-15 20:57 | XMS_ITS | Referral Summary ---
Author Organization [facility] ([place], [place], [place], [place]) Address [address] [place] [address] Care Team Providers Care Cooling Pan Tender Name Role Phone Christa Hart APRN Primary Care Provider Allergies No known active allergies Medications busPIRone (BUSPAR) 10 MG tablet Take 10 mg by mouth 2 (two) times daily. 02/04/2022 Active simvastatin (ZOCOR) 40 MG tablet Take 40 mg by mouth nightly. 12/01/2021 Active losartan (COZAAR) 50 MG tablet Take 50 mg by mouth daily. 11/29/2021 Active omeprazole (PriLOSEC) 20 MG capsule Take 20 mg by mouth every morning. 11/29/2021 Active zolpidem (AMBIEN) 10 mg tablet Take 10 mg by mouth every night as needed. 11/29/2021 Active clotrimazole (LOTRIMIN) 1 % cream Apply topically. 02/05/2022 Active diclofenac (VOLTAREN) 75 MG EC tablet Take 75 mg by mouth daily. Active Social History Tobacco Use Types Packs/Day Years Used Date Smoking Tobacco: Never Smokeless Tobacco: Former Alcohol Use Standard Drinks/Week Comments Never 0 (1 standard drink = 0.6 oz pur e alcohol) Food Insecurity Answer Date Recorded Food run out past 12 months Not on file 02/23 Food did not last past 12 months Not on file 03/13/2023 Employment Answer Date Recorded Help finding and keeping a job Not on file 0 03/13/2023 Family and Community Support Answer Valeriy e Recorded Help with Day to Day Activities Not on file 03/13/2023 Feeling Lonely or Isolated Not on file 03/13 Educational Attainment Answer Date Moises rded Speak language other than Mauritian at home Not on file 03/13/2023 Want help with school or training Not on file 03/13/2023 Substance Use Answer Date Recorded Used prescription meds for non-medical reasons N ot on file 03/13/2023 Used illegal drugs past 12 months Not on file 03/13/2023 Sex and Gender Information Value Date Recorded Sex Assigned at Not on file Legal Sex Male 7:40 PM CDT Gender Identity Not on file Sexual Orientation Not on file Last Filed Vital Signs Vital Sign Reading Time Taken Comments Blood Pressure 118/71 02/07/2022 1:45 PM EST Pulse 56 02/07/2022 1:45 PM EST Temperature 36.7 C (98.1 F) 02/07/2022 1:15 PM EST Respiratory Rate 16 02/07/2022 1:45 PM EST Oxygen Saturation 97% 02/07/2022 1:45 PM EST room air Inhaled Oxygen Concentration - - Weight 85.3 kg (188 lb) 02/07/2022 10:00 AM EST Height 177.8 cm (5' 10 ) 02/07/2022 10:00 AM EST Body Mass Index 26.98 02/07/2022 10:00 AM EST Plan of Treatment Not on file Insurance [facility] [place] [phone] BLUE CROSS/BLUE SHIELD Care Teams Cooling Pan Tender Relationship Specialty Start Date End Date Hart Christa, CHEMICAL LABORATORY SCIENTIST [address] [place], [place] [id number] PCP - General Nurse Practitioner 02/07/22
--- OUTSIDE RECORDS SUMMARY | 2024-10-15 20:57 | XMS_ITS | Clinical Summary ---
Author Organization [facility] Address [address] [place] [address] Care Team Providers Care Fire Lieutenant Marine Name Role Phone Keri Mckinnon APRN Primary Care Provider Social History Tobacco Use Types Packs/Day Years Used Date Smoking Tobacco: Never Assessed Abuse Screen Answer Date Recorded Unsafe at Home or Work/School Not on file Feels Threatened by Someone? Not on file 09/2023 Does Anyone Keep You from Co ntacting Others or Doint Things Outside the Home? Not on file 04/02/2023 Physical Sign of Abuse Present Not on file 0 04/02/2023 Housing Stability Answer Date Recorded Current Living Arrangements Not on file 09/2023 Potentially Unsafe Housing Conditions Not on keila e 04/02/2023 Family and Community Support Answer Valeriy e Recorded Help with Day-to-Day Activities Not on file 04/02/2023 Lonely or Isolated Not on file 04/02/2023 Employment Answer Date Recorded Do you want help finding or keeping work or a miguelina b? Not on file 04/02/2023 Disabilities Answer Date Recorded Concentrating, Remembering, or Making Decisions Difficulty Not on file 04/02/2023 Doing Errands Independently Difficulty Not on fi le 04/02/2023 Education Answer Date Recorded Help with school or training? Not on file Preferred Language Not on file 04/02/2023 Sex and Gender Information Value Date Recorded Sex Assigned at Not on file Legal Sex Male 2:17 PM EST Gender Identity Not on file Sexual Orientation Not on file Plan of Treatment Health Maintenance Due Date Last Done Comments ANNUAL PHYSICAL 1970 HEPATITIS C SCREENING 1970 TDAP/TD VACCINES (1 - Tdap) 1989 COLOGUARD 09/27/2015 COLON CANCER SCREENING 5 YEA R SIGMOIDOSCOPY 09/27/2015 COLONOSCOPY 09/27/2015 COLORECTAL CANCER SCREENING 09/27/2015 CT COLONOGRAPHY 09/27/2015 FECAL OCCULT BLOOD TEST 09/27/2015 FIT Testing (1 year) 09/27/2015 Pneumococcal Vaccine 50+ (1 of 1 - PCV) 2020 ZOSTER VACCINE (1 of 2) 2020 COVID-19 Vaccine (4 - 2023-2 5 season) 2023 02/14/2021, 06/06/2020, 05/09/2020 INFLUENZA VACCINE 11/23/2024 12/12/2022, , 12/09/2018, Additional history exists Insurance Care Teams Fire Lieutenant Marine Relationship Specialty Start Date End Date Keri Mckinnon APRN [address] [place] [address] PCP - General Nurse Practitioner 04/02/23
--- OUTSIDE RECORDS SUMMARY | 2024-10-15 20:57 | XMS_ITS | Clinical Summary ---
Author Organization [facility] ([place], [place], [place], [place]) Address [address] [place] [address] Care Team Providers Care Title Officer Name Role Phone Christa Hart APRN Primary Care Provider [phone] Allergies No known active allergies Medications busPIRone [...] Date Moises rded Speak language other than Nepalese at home Not on file 03/13/2023 Want [...] 02/07/2022 10:00 AM EST Plan of Treatment Health Maintenance Due Date Last Done Comments CT Colonography 1970 Colonoscopy 1970 Colorectal Cancer Screening 1970 FOBT/FIT 1970 Fit-DNA (Cologuard) 1970 Sigmoidoscopy 1970 Depression Screening (12+) 1982 HIV Screening 1985 Hepatitis C Screening 1988 DTAP/TDAP/TD VACCINES (1 - Tdap) 1989 Lipid Panel 2005 Pneumococcal 50+ years (1 of 1 - PCV) 2020 Shingles Vaccine (Zoster) (1 of 2) 2020 Tobacco Cessation Counseling and Screening (12+) 02/0702/07/2022 COVID-19 VACCINE (1 - season) 2023 Influenza Vaccine (#1) [address] [place] [id number] BLUE CROSS/BLUE SHIELD Care Teams Title Officer Relationship Specialty Start Date End Date Christa Hart APRN [address] [address] PCP - General Nurse Practitioner 02/07/22
[2024-10-15] MEDS: IBUPROFEN 600 MG TABLET PO (21:09)
== END 2024-10-15 23:13 | disposition home or self-care (01) ==
PROVIDERS: Emergency Provider Student in an Organized Health Care Education/Training Program; PCP Family Medicine
DX: S62.630A Displaced fracture of distal phalanx of right index finger, initial encounter for closed fracture (principal); M20.011 Mallet finger of right finger(s); W20.8XXA Other cause of strike by thrown, projected or falling object, initial encounter
CPT/HCPCS: 73130; 99283

== ENCOUNTER 2024-10-18 14:52 | Outpatient (CLI) | payer BC, SELFPAY ==
--- OUTSIDE RECORDS SUMMARY | 2024-09-27 12:22 | XMS_ITS | Encounter Summary ---
Author Organization [facility] Address [address] [place] [address] Care Team Providers Care Dedicated Regional Driver Name Role Phone Pcp, No Primary Care Provider Unavailabl e Reason for Referral * Imaging (Routine) - Closed Specialty Diagnoses / Procedures Referred By Contac t Referred To Contact Radiology Diagnoses Chest pain, unspecified Procedures CT Angio Cardiac Coronary Arteries Jorge Adkins MD [address] [place] [address] Phone: tel: fax: Referral ID Status Reason Start Date Expiration Date Visits Re quested Visits Authorized [id number] Closed 08/25/2024 02/24/2026 1 1 Reason for Visit * Imaging (Routine) - Closed Specialty Diagnoses / Procedures Referred By Contac t Referred To Contact Radiology Diagnoses Chest pain, unspecified Procedures CT Angio Cardiac Coronary Arteries Jorge Adkins MD [address] [place] [address] Phone: tel: fax: Referral ID Status Reason Start Date Expiration Date Visits Re quested Visits Authorized [id number] Closed 08/25/2024 02/24/2026 1 1 Encounter Details Date Type Department Care Team (Latest Contact Info) Description 09/27/2024 12:22 PM EDT - 09/27/2024 1:43 PM EDT Hospital Encounter [facility] Radiology [address] [place] [address] Mesfin Parker RN [facility] A 5 T2 [facility]O EMU Chest pain, unspecified Discharge Disposition: Home or Self Care Social History Tobacco Use Types Packs/Day Years Used Date Smoking Tobacco: Never Smokeless Tobacco: Never Alcohol Use Standard Drinks/Week Comments Never 0 (1 standard drink = 0.6 oz pur e alcohol) PHQ-2 Answer Date Recorded Patient Health Questionnaire-2 Score 0 01/26/2024 Sex and Gender Information Value Date Recorded Sex Assigned at Not on file Legal Sex Male 3:28 PM EDT Gender Identity Not on file Sexual Orientation Not on file documented as of this encounter Last Filed Vital Signs Vital Sign Reading Time Taken Comments Blood Pressure 110/75 09/27/2024 1:03 PM EDT Pulse 73 09/27/2024 1:03 PM EDT Temperature - - Respiratory Rate 16 09/27/2024 1:03 PM EDT Oxygen Saturation 99% 09/27/2024 1:03 PM EDT Inhaled Oxygen Concentration - - Weight 92.1 kg (203 lb 0.7 oz) 09/27/2024 12:35 PM EDT Height 177.8 cm (5' 10 ) 09/27/2024 12:35 PM EDT Body Mass Index 29.13 09/27/2024 12:35 PM EDT documented in this encounter Medications at Time of Discharge busPIRone (Buspar) 10 MG tablet Take 1 tablet by mouth 2 times a day. cholecalciferol (Vitamin D-3) 1.25 MG (40187 UT) capsule Take 1 capsule by mouth 1 time per week. 10/15/2023 diclofenac (Voltaren) 75 MG EC tablet Take 1 tablet by mouth 2 times a day. losartan (Cozaar) 50 MG tablet Take 1 tablet by mouth daily. methocarbamol (Robaxin) 750 MG tablet Take 1 tablet by mouth 4 times a day. 12/30/2023 omeprazole (PriLOSEC) [address] capsule Take 1 capsule by mouth daily before breakfast. 11/25/2023 zolpidem (Ambien) 10 MG tablet Take 1 tablet by mouth daily. ibuprofen 800 MG tablet TAKE 1 TABLET BY MOUTH THREE TIMES DAILY NEEDED FOR PAIN FOR 7 DAYS 01/31/2024 10/17/2024 simvastatin (Zocor) 40 MG tablet Take 1 tablet by mouth every evening. 10/17/2024 documented as of this encounter Miscellaneous Notes * Mesfin Hernandez, RN - 09/27/2024 12:51 PM EDT Images from the original note were not included. [id number] Understanding coronary computed tomography angiography (CCTA) Coronary computed tomography angiography (CCTA) is a type of imaging test. It's a noninvasive test that can detect blockages in the coronary arteries. These are the blood vessels that supply blood tothe heart. CCTA uses a special dye put into the blood and a CT scanner to make 3-D images of the coronary arteries. Why CCTA is done CCTA checks if the coronary arteries are healthy. It shows narrowing of the arteries and a buildup of plaque. Plaque is a substance made up of fat, cholesterol, and calcium. Too much plaque in the arteries can block blood flow to the heart. This is called coronary artery disease. It can lead to a heart attack. You may have a CCTA if your healthcare provider thinks there is a problem with your coronary arteries. You may also have one if you are having chest pain and other tests are not clear as to why. Chest pain may be a sign of a sudden blockage in a coronary artery. How CCTA is done Before you have the test, your healthcare provider may tell you to not eat or drink for some time beforehand. You will also have to stay away from caffeine. It could raise your heart rate for the test. Your healthcare provider may tell you to stop taking certain medicines. Tell your provider about all the medicines and supplements you take. This includes vitamins, minerals, and herbs. If you use drugs, it's important to tell your provider. Also tell your provider if you have any allergies or health conditions or if you may be or are . Before the procedure, you will be asked to sign a form saying you agree to the procedure. Be certain to ask any questions you have before you sign. CCTA often takes about 15 to 20 minutes. But it maytake longer if you need to take medicine to slow your heart rate. During the test: ? You will change into a gown. You will be asked to remove all metal objects from your body, such as jewelry. ? Once in the test room, you will lie down on your back on a narrow table. The table is part of theCT scanner. ? A healthcare provider will put 3 electrodes on your chest. These sticky pads are connected to an electrocardiograph (ECG) machine. The ECG monitors your heart?s electrical activity during the test. ? The healthcare provider will put an intravenous (IV) line in your arm. They may put medicine intothe IV line to slow your heart rate down. Or you may be given a pill. ? You may also be given nitroglycerin as a pill or mouth spray. This substance helps dilate the coronary arteries so they can be seen more easily ? The healthcare provider will then inject the special dye into the IV line. You may feel warm as the dye goes into your bloodstream. ? You may be asked to raise your arms above your head for the duration of the test. This helps capture better images. ? The table will slide into the CT scanner. The scanner will make several passes over your body. You need to stay still during the test to make sure the images are clear. ? At some points during the test, the healthcare provider may ask you to hold your breath for 5 to 15 seconds. ? Once the test is over, the table will slide out of the CT scanner. The healthcare provider will take out the IV line. What happens after CCTA You may return to your normal activities right away. A healthcare provider, often a radiologist, will look at the images. They will send the results to your healthcare provider. It may take a few days for you to get the results. Schedule a follow-up visit with your healthcare provider, as directed. Risks of CCTA ? Allergic reaction to the special dye ? Damage to kidneys from the dye ? Low levels of radiation exposure ? Discomfort around the IV site Last Reviewed Date: 2023 00:00:00 ?? 9352-2678 The [employer]. All rights reserved. This information is not intended as a substitute for professional medical care. Always follow your healthcare professional's instructions. * Jovana Loyola - 09/27/2024 12:27 PM EDT Images from the original note were not included. 1639 Caring for Yourself after Contrast Imaging If you had ORAL contrast: ? You can go back to your normal diet and activities as tolerated. ? Drink plenty of fluids, unless told otherwise. If you had IV contrast: ? You can go back to your normal diet and activities as tolerated. ? Drink plenty of fluids, unless told otherwise. ? Leave a bandage on the site for 30 minutes (where the IV was inserted or blood was drawn). If you had Intravesical (bladder) contrast: ? Return to normal diet and activity. What you need to know about delayed reaction to IV contrast What is IV Contrast? ? Contrast is a dye that is put into your body through an IV. ? It is used for imaging scans such as CT scans and MRIs. ? The contrast makes blood vessels, organs and other parts of your body show up better on the scan. What do I need to do after IV contrast? ? Drink lots of fluids. This will help flush the contrast out of your system. ? Drink 2-3 extra glasses or bottles of water within 4 hours of your scan. What is a contrast reaction? ? A contrast reaction is a bad side effect from the contrast dye. ? It is rare but it does happen. ? They can be mild - such as sneezing, itching, or hives. ? They can be severe - such as trouble breathing, throat swelling, and irregular heart beat. When do these reactions happen? ? They often happen right after the contrast is injected. ? Some happen hours after going home. Go to the nearest Emergency Department right away if you have any of these symptoms after you leavethe clinic or hospital. ? Sneezing ? Itching in your mouth, throat, eyes, ears, or skin ? Rash or hives ? Throwing up or stomach sickness ? High heart rate or ?racing? of your heart ? Feeling dizzy or woozy ? Feeling short of breath or like you can?t take a deep breath ? Feeling very anxious for no other reason It is very important that these reactions be treated. Tell the doctor or nurse that you are having a reaction to IV contrast dye. Do not ignore any sign of a reaction! All reactions must be assessed by a doctor. Call 911 if you are alone and your reaction is more than mild sneezing or itching. If you have a mild reaction, call to speak with a Radiologist, explain that you havehad a contrast reaction, as this needs to be added to your medical record. documented in this encounter Plan of Treatment Upcoming Encounters Date Type Department Care Team (Late st Contact Info) Description 03/10/2025 10:00 AM EST Office Visit [facility] Multidisciplinary Oncology Clinic [address] [place] [address] Megan Spangler MD [address] [place] [address] documented as of this encounter Procedures Procedure Name Priority Date/Time Associated Diagnosis Comments CT ANGIO CARDIAC CORONARY ARTERIES Routine 09/27/2024 1:03 PM EDT Chest pain, unspecified documented in this encounter Results * CT Angio Cardiac Coronary Arteries (09/27/2024 1:03 PM EDT) Anatomical Region Laterality Modality Heart Computed Tomogra phy Impressions 09/27/2024 4:36 PM EDT 1. Multi-vessel non-obstructive atherosclerotic coronary artery disease. ---- Moderate stenosis in the mid segment of the left anterior descending coronary artery and right coronary artery ---- Minimal stenosis in the left circumflex coronary artery, left main, and distal left anterior descending coronary 2. Overall, there is (P3) severe amount of total coronary plaque present (which includes both calcified and non-calcified plaques). Severe coronary calcification with an Agatston score = 503 using the AJ-130 method. Recommendation: CAD-RADS 3 / P3: Recommend aggressive risk factor modification (e.g. diet/exercise/smoking cessation) and preventive pharmacotherapy (e.g. baby aspirin and consider LDL goal <55). Other treatments (including anti-anginal therapy) should be considered per guideline directed care. 3. No significant non coronary cardiac findings in particular normal cardiac chambers, non-coronary vessels in the field of view and unremarkable pericardium. 4. Extracardiac structures in the field of view are unremarkable. Critical Result: No. Communication: Per this written report. By electronically signing this report, I, the attending physician, attest that I have personally reviewed the images/data for the above examination(s) and agree with the final edited report. Drafted by Dustin Rodriguez on 09/27/2024 2:00 PM Final report signed by Mesfin Hatch MD on 09/27/2024 4:36 PM Narrative 09/27/2024 4:36 PM EDT CLINICAL INFORMATION: 54 years old Male with a past medical history of HTN, HLD, prostate nodule who presents for coronary CTA for workup of chest pain with clinical concern for myocardial ischemia. Height: 178 cm Weight: 92 kg Baseline Heart Rate on Arrival: 64 beats/min Relevant Cardiac Diagnostic Tests: None available Comparison Imaging: None available SCAN TECHNIQUE: Pre-Medication: The patient received the following medications prior to the Cardiac CT: 0.8mg sublingual nitroglycerin. The average heart rate at the time of acquisition was 66 bpm (62 bpm to 76 bpm) and regular. Image Acquisition and Reconstruction: A Dual source 192 MDCT scanner ([employer], [employer]) was used for data acquisition. A non-contrast coronary calcium scan was initially performed. Bolus tracking in the ascending aorta with a threshold of 180 HU was performed. Immediately afterwards, ECG synchronized Cardiac CT was then performed from cardiac base to apex using prospective gating. A total of 80 mL Omnipaque 350mgI/mL contrast media was administered followed by a saline flush using a biphasic injection protocol. Transaxial images were reconstructed at 0.75 mm slice thickness. Data was reviewed interactively on an advanced workstation capable of 2 and 3 dimensional displays in all conventional reconstruction formats including multiplanar reformations, maximum intensity projections, curved multiplanar reformations, and volume rendered reconstructions. Selected routine images displaying relevant coronary anatomy and pathology were saved and sent to PACS. Total DLP (Dose-Length Product): 456.87 mGy.cm. Please note: The reported value represents the total of one or more individual components during the CT acquisition on this date and at this time, and as such, the same value may appear in more than one CT report depending on the interpreting/reporting physicians. Technical Quality: Overall image quality is Good, with minor artifacts that do not significantly impact diagnostic quality. Coronary artery opacification is Adequate. FINDINGS: --- Coronary Calcium Scoring --- Left Main= 49 Left Anterior Descending= 298 Left Circumflex= 109 Right Coronary Artery= 51 Total calcium score = 503 using the AJ-130 method (total volume score is 418). This calcium score is in the 96 percentile rank for age and gender, meaning that 4% of patients of the same age and gender will have a higher score. The calculated vascular age for this patient is 84 years. --- Coronary Plaque Analysis: There is moderate amount of total coronary plaque with total plaque volume of 687mm3. The Total Plaque Volume for this patient is 86 percentile for age and sex as compared to their peer population (Rodri, et al. J Am Tato Cardiol Img 2022). --- Coronary CT Angiography --- The coronaries have normal origin and proximal course. The coronary arterial system is right dominant. Left Main: CAD-RADS 1. The left main originates from the left sinus of Valsalva and bifurcates into the left anterior descending and left circumflex arteries. Minimal nonobstructive stenosis proximal segment secondary to calcified plaque. Left Anterior Descending: CAD-RADS 3. The LAD arises from the left main, courses down the anterior interventricular groove, gives off 1 notable diagonal branches, and terminates as a recurrent apical branch. Mild nonobstructive stenosis in the proximal segment secondary to mixed calcified and soft plaque. Moderate mid segment stenosis due to mixed plaque. Minimal nonobstructive calcified plaque in the distal segment. Left Circumflex: CAD-RADS 1. The LCx arises from the left main, gives off 1 notable obtuse marginal branches and terminates in the left AV groove. Minimal nonobstructive calcified plaque throughout the length of the vessel. Right Coronary Artery: CAD-RADS 3. The RCA originates from the right sinus of Valsalva and is dominant for posterior circulation, gives off acute marginal branches, and distally bifurcates into the posterior descending artery and a branching posterolateral vessel. Moderate mid segment stenosis due to mixed plaque.. --- Non Coronary Cardiac Findings --- Normal cardiac chamber size. No significant pericardial effusion, thickening, or calcification. Normal interatrial and interventricular septum. Grossly normal aortic valve and mitral valve. --- Extra Cardiac Structures --- Thoracic aorta and imaged thoracic aortic branches in the field of view are unremarkable. Central and branch pulmonary arteries in the field of view are unremarkable. No suspicious pulmonary nodules. No suspicious lesion in the visualized portion of the upper abdomen. Degenerative changes of the thoracic spine. Small calcified subtracheal lymph node. Procedure Note Mesfin Hatch MD - 09/27/2024 CLINICAL INFORMATION: 54 years old Male with a past medical history of HTN, HLD, prostate nodulewho presents for coronary CTA for workup of chest pain with clinicalconcern for myocardial ischemia. Height: 178 cm Weight: 92 kg Baseline Heart Rate on Arrival: 64 beats/min Relevant Cardiac Diagnostic Tests: None available Comparison Imaging: None available SCAN TECHNIQUE: Pre-Medication: The patient received the following medications prior to the Cardiac CT:0.8mg sublingual nitroglycerin. The average heart rate at the time of acquisition was 66 bpm (62 bpm to 76bpm) and regular. Image Acquisition and Reconstruction: A Dual source 192 MDCT scanner ([employer] Force, [employer])was used for data acquisition. A non-contrast coronary calcium scan wasinitially performed. Bolus tracking in the ascending aorta with athreshold of 180 HU was performed. Immediately afterwards, ECGsynchronized Cardiac CT was then performed from cardiac base to apex usingprospective gating. A total of 80 mL Omnipaque 350mgI/mL contrast mediawas administered followed by a saline flush using a biphasic injectionprotocol. Transaxial images were reconstructed at 0.75 mm slice thickness.Data was reviewed interactively on an advanced workstation capable of 2and 3 dimensional displays in all conventional reconstruction formatsincluding multiplanar reformations, maximum intensity projections, curvedmultiplanar reformations, and volume rendered reconstructions. Selectedroutine images displaying relevant coronary anatomy and pathology weresaved and sent to PACS. Total DLP (Dose-Length Product): 456.87 mGy.cm. Please note: The reportedvalue represents the total of one or more individual components during theCT acquisition on this date and at this time, and as such, the same valuemay appear in more than one CT report depending on theinterpreting/reporting physicians. Technical Quality: Overall image quality is Good, with minor artifacts that do notsignificantly impact diagnostic quality. Coronary artery opacification is Adequate. FINDINGS: --- Coronary Calcium Scoring --- Left Main= 49 Left Anterior Descending= 298 Left Circumflex= 109 Right Coronary Artery= 51 Total calcium score = 503 using the AJ-130 method (total volume score is418). This calcium score is in the 96 percentile rank for age and gender,meaning that 4% of patients of the same age and gender will have a higherscore. The calculated vascular age for this patient is 84 years. --- Coronary Plaque Analysis: There is moderate amount of total coronary plaque with total plaque volumeof 687mm3. The Total Plaque Volume for this patient is 86 percentile forage and sex as compared to their peer population (Rodri, et al. J Am CollCardiol Img 2022). --- Coronary CT Angiography --- The coronaries have normal origin and proximal course. The coronaryarterial system is right dominant. Left Main: CAD-RADS 1. The left main originates from the left sinus ofValsalva and bifurcates into the left anterior descending and leftcircumflex arteries. Minimal nonobstructive stenosis proximal segmentsecondary to calcified plaque. Left Anterior Descending: CAD-RADS 3. The LAD arises from the left main,courses down the anterior interventricular groove, gives off 1 notablediagonal branches, and terminates as a recurrent apical branch. Mildnonobstructive stenosis in the proximal segment secondary to mixedcalcified and soft plaque. Moderate mid segment stenosis due to mixedplaque. Minimal nonobstructive calcified plaque in the distal segment. Left Circumflex: CAD-RADS 1. The LCx arises from the left main, gives off1 notable obtuse marginal branches and terminates in the left AV groove.Minimal nonobstructive calcified plaque throughout the length of thevessel. Right Coronary Artery: CAD-RADS 3. The RCA originates from the right sinusof Valsalva and is dominant for posterior circulation, gives off acutemarginal branches, and distally bifurcates into the posterior descendingartery and a branching posterolateral vessel. Moderate mid segmentstenosis due to mixed plaque.. --- Non Coronary Cardiac Findings --- Normal cardiac chamber size. No significant pericardial effusion,thickening, or calcification. Normal interatrial and interventricularseptum. Grossly normal aortic valve and mitral valve. --- Extra Cardiac Structures --- Thoracic aorta and imaged thoracic aortic branches in the field of vieware unremarkable. Central and branch pulmonary arteries in the field ofview are unremarkable. No suspicious pulmonary nodules. No suspiciouslesion in the visualized portion of the upper abdomen. Degenerativechanges of the thoracic spine. Small calcified subtracheal lymph node. IMPRESSION: 1. Multi-vessel non-obstructive atherosclerotic coronary artery disease. ---- Moderate stenosis in the mid segment of the left anterior descendingcoronary artery and right coronary artery ---- Minimal stenosis in the left circumflex coronary artery, left main,and distal left anterior descending coronary 2. Overall, there is (P3) severe amount of total coronary plaque present(which includes both calcified and non-calcified plaques). Severe coronarycalcification with an Agatston score = 503 using the AJ-130 method. Recommendation: CAD-RADS 3 / P3: Recommend aggressive risk factormodification (e.g. diet/exercise/smoking cessation) and preventivepharmacotherapy (e.g. baby aspirin and consider LDL goal <55). Othertreatments (including anti-anginal therapy) should be considered perguideline directed care. 3. No significant non coronary cardiac findings in particular normalcardiac chambers, non-coronary vessels in the field of view andunremarkable pericardium. 4. Extracardiac structures in the field of view are unremarkable. Critical Result: No. Communication: Per this written report. By electronically signing this report, I, the attending physician, alexy I have personally reviewed the images/data for the aboveexamination(s) and agree with the final edited report. Drafted by Dustin Rodriguez on 09/27/2024 2:00 PM Final report signed by Mesfin Hatch MD on 09/27/2024 4:36 PM Jorge Adkins MD IMG CT PROCEDURES Final Resul t documented in this encounter Visit Diagnoses Diagnosis Chest pain, unspecified documented in this encounter Administered Medications Inactive Administered Medications - up to 3 most recent administrations Medication Order MAR Action Action Date Dose Rate Site iohexol (OMNIPaque) 350 MG/ML injection 80 mL 80 mL, Intravenous, Once in imaging, 1 dose, Starting on Thu09/27/24 at 1227, Until Thu09/27/24 at 1254, Routine, Imaging Protocol Orders Given 09/27/2024 12:54 PM EDT 80 mL nitroglycerin (Nitrostat) SL tablet 0.8 mg 0.8 mg, Sublingual, Once PRN Procedure, 1 dose, Starting on Thu09/27/24 at 1229, Until Thu09/27/24 at 1252, Routine, Intraprocedure, CTA Given 09/27/2024 12:52 PM EDT 0.8 mg documented in this encounter Additional Health Concerns Assessment Noted Time A fall risk assessment has been complete d for the patient 03/18/2024 2:36 PM EST A Body Mass Index follow-up plan has been documented for the patient 01/29/2024 3:48 PM EST documented as of this encounter Care Teams Dedicated Regional Driver Relationship Specialty Start Date End Date Pcp, [place] [address] PCP - General Family Medicine 09/04/23 documented as of this encounter
--- OUTSIDE RECORDS SUMMARY | 2024-09-27 13:44 | XMS_ITS | Encounter Summary ---
Author Organization [facility] Address [address] [place] [address] Care Team Providers Care Medicaid Biller Name Role Phone Pcp, No Primary Care Provider Unavailabl e Reason for Referral * Imaging (Routine) - Closed Specialty Diagnoses / Procedures Referred By Contac t Referred To Contact Radiology Diagnoses Chest pain, unspecified Procedures CT Angio Cardiac Plaque Analysis Jorge Adkins MD [address] [place] [address] Phone: tel: fax: Referral ID Status Reason Start Date Expiration Date Visits Re quested Visits Authorized [id number] Closed 09/27/2024 03/29/2026 1 1 Reason for Visit * Imaging (Routine) - Closed Specialty Diagnoses / Procedures Referred By Contac t Referred To Contact Radiology Diagnoses Chest pain, unspecified Procedures CT Angio Cardiac Plaque Analysis Jorge Adkins MD [address] [place] [address] Phone: tel: fax: Referral ID Status Reason Start Date Expiration Date Visits Re quested Visits Authorized [id number] Closed 09/27/2024 03/29/2026 1 1 Encounter Details Date Type Department Care Team (Latest Contact Info) Description 09/27/2024 1:44 PM EDT - 09/27/2024 4:43 PM EDT Hospital Encounter [facility] Radiology [address] [place] [address] Chest pain, unspecified Discharge Disposition: Home or [...] a day. cholecalciferol (Vitamin D-3) 1.25 MG (65744 UT) capsule Take 1 capsule by mouth [...] Description 03/10/2025 10:00 AM EST Office Visit [facility] Multidisciplinary Oncology Clinic [address] [place] [address] Megan Spangler MD [id number] [place] [address] documented as of this encounter Procedures Procedure [...] Artery: there is a Borderline likelihood of flow-limitingstenosis with an FFRct value of 0.78. IMPRESSION: [...] documented as of this encounter Care Teams Medicaid Biller Relationship Specialty Start Date End Date Pcp, [place] [address] PCP - General Family Medicine 09/04/23 documented as of this encounter
--- OUTSIDE RECORDS SUMMARY | 2024-09-27 16:44 | XMS_ITS | Encounter Summary ---
Author Organization [facility] Address [address] [place] [address] Care Team Providers Care Rn Radiation Name Role Phone Pcp, No Primary Care Provider Unavailabl e Reason for Referral * Imaging (Routine) - Closed Specialty Diagnoses / Procedures Referred By Drewac t Referred To Contact Radiology Diagnoses Chest pain, unspecified Procedures CT Angio Cardiac FFR Jorge Adkins MD [facility] [place] [address] Phone: tel: fax: Referral ID Status Reason Start Date Expiration Date Visits Re quested Visits Authorized [id number] Closed 09/27/2024 03/29/2026 1 1 Reason for Visit * Imaging (Routine) - Closed Specialty Diagnoses / Procedures Referred By Contac t Referred To Contact Radiology Diagnoses Chest pain, unspecified Procedures CT Angio Cardiac FFR Jorge Adkins MD [address] [place] [address] Phone: tel: fax: Referral ID Status Reason Start Date Expiration Date Visits Re quested Visits Authorized [id number] Closed 09/27/2024 03/29/2026 1 1 Encounter Details Date Type Department Care Team (Latest Contact Info) Description 09/27/2024 4:44 PM EDT - 09/27/2024 11:59 PM EDT Hospital Encounter [facility] [address] [place] [address] Chest pain, unspecified Discharge Disposition: Home or [...] a day. cholecalciferol (Vitamin D-3) 1.25 MG (78978 UT) capsule Take 1 capsule by mouth [...] Description 03/10/2025 10:00 AM EST Office Visit [facility] Multidisciplinary Oncology Clinic [address] [place] [address] Megan Spangler MD [id number] [place] [address] documented as of this encounter Procedures Procedure Name Priority Date/Time Associated Diagnosis Comments CT ANGIO CARDIAC FFR Routine 09/27/2024 4:44 PM EDT Chest pain, unspecified documented in this encounter Results * CT Angio Cardiac FFR (09/27/2024 4:44 PM EDT) Anatomical Region Laterality Modality Heart [...] documented as of this encounter Care Teams Rn Radiation Relationship Specialty Start Date End Date Pcp, [place] [address] PCP - General Family Medicine 09/04/23 documented as of this encounter
--- OUTSIDE RECORDS SUMMARY | 2024-10-17 06:29 | XMS_ITS | Encounter Summary ---
Author Organization Healthcare Address [address] [place] [address] Care Team Providers Care Local Area Network Administrator Name Role Phone Pcp, No Primary Care Provider Unavailabl e Reason for Visit * Auth/Cert (Routine) Specialty Diagnoses / Procedures Referred By Contac t Referred To Contact Diagnoses Multiple vessel coronary artery disease Multiple vessel coronary artery disease [I25.10] Procedures SD CATH PLACE/CORONARY ANGIO, IMG SUPER/INTERP SD RIGHT HEART CATH O2 SATURATION & CARDIAC OUTPUT Coronary angiography Right heart catheterization Candelaria Hahn MD [address] [place] [address] Phone: tel: fax: Cardiac Plate Shop Helper [address] [place] [address] Phone: tel: Referral ID Status Reason Start Date Expiration Date Visits Re quested Visits Authorized [id number] 1 1 Encounter Details Date Type Department Care Team (Latest Contact Info) Description 10/17/2024 6:29 AM EDT - 10/17/2024 1:11 PM EDT Hospital Encounter Cardiac Plate Shop Helper [address] [place] [address] Candelaria Hahn MD [address] [place] [address] Multiple vessel coronary artery disease Discharge Disposition: Home or Self Care Social [...] Sign Reading Time Taken Comments Blood Pressure 125/81 10/17/2024 12:00 PM EDT Pulse 60 10/17/2024 12:00 PM EDT Temperature 36.7 C (98.1 F) 10/17/2024 9:53 AM EDT Respiratory Rate 17 10/17/2024 12:00 PM EDT Oxygen Saturation 94% 10/17/2024 12:00 PM EDT Inhaled Oxygen Concentration - - Weight 92.3 kg (203 lb 7.8 oz) 10/17/2024 7:00 A M EDT Height 177.8 cm (5' 10 ) 10/17/2024 7:00 AM EDT Body Mass Index 29.2 10/17/2024 7:00 AM EDT documented in this encounter Functional Status * Calculated C-SSRS Risk Score (Lifetime/Recent) Answer Date of Assessment Author No Risk Indicated 10/17/2024 7:10 AM EDT Kathleen Morton RN * Question Answer Date of Assessment Author 1. Wish to be (Past 1 Month) No 10/17/2024 7:10 AM EDT Sondra Lazcano RN 2. Non-Specific Active Suicidal Thoughts (Past 1 Month) No 10/17/2024 7:10 AM EDT Sondra Lazcano RN 6. Suicidal Behavior (Lifetime) No 10/17/2024 7:10 AM EDT Sondra Lazcano RN documented as of this encounter Medications at Time of Discharge aspirin 81 MG chewable tablet Chew 1 tablet daily. aspirin 81 mg tablet 360 tablet 10/18/2024 busPIRone (Buspar) 10 MG tablet Take 1 tablet by mouth 2 times a day. cholecalciferol (Vitamin D-3) 1.25 MG (23076 UT) capsule Take 1 capsule by mouth [...] capsule by mouth daily before breakfast. 11/25/2023 rosuvastatin (Crestor) 20 MG tablet Take 1 tablet by mouth daily. 90 tablet 1 10/17/2024 10/17/2025 zolpidem (Ambien) 10 MG tablet Take 1 tablet by mouth daily. documented as of this encounter Miscellaneous Notes * Nursing Note - Kathleen Lazcano RN - 10/17/2024 1:09 PM EDT Verbal and written discharge instructions reviewed with patient and . Patient verbalizes understanding of discharge instructions. Pt is A&Ox4, VSS, right wrist site C/D/I, no hematoma. PIV removed. All questions answered by RN prior to discharge. Patient escorted to car by wheelchair. * [facility] - Kathleen Lazcano RN - 10/17/2024 12:28 PM EDT Images from the original note were not included. 680 Work Release Form This notice verifies that your employee was seen in this facility today (or on if checked [ ]). He/she may return to work on with the following restrictions: None: [ ] No heavy lifting: [ ] (over pounds) No prolonged standing: [ ] Desk Work Only: [ ] Other: [ ] (described below) These restrictions apply through . After this date, your employee should be able to participate fully in work duties. Be Advised: If symptoms continue and the employee is unable to perform the full duties of their job by this date, please advise the employee to make an appointment with your worker?s comp physician. If that is not possible, the employee should see his or her own doctor or the referral doctor provided by us. Physician or Nurse Notes: * [facility] - Kathleen Lazcano RN - 10/17/2024 12:26 PM EDT 637 After TR Band Removal How do I care for myself at home? Medicines: ? Keep taking all your prescribed medicines, unless you heart doctor gives different orders. ? Do not take Metformin or Glucophage for 48 hours, unless you doctor says to take them. Activity: ? Do not drive yourself home from the hospital. ? Do not bend or strain your wrist. Avoid activities like knitting or using the computer. ? For 48 hours, avoid strenuous activities. This means no heavy work or lifting, driving a [employer] car, or vigorous sports. ? Do not lift anything heavier than a gallon of milk with the affected arm for the next week. Dressing: ? You may remove the dressing after 24 hours. Replace it with a regular Band-Aid. ? Leave the Band-Aid on another day. ? You may see a little blood on the Band-Aid. This is normal. Showers and baths: ? You may shower the next day. After your shower, pat the wound dry and cover with a Band-Aid. ? For 3 days, do not soak in a bath tub or soak the wound in a pool or hot tub. Bruising: For a couple weeks, you may have a small bruise or lump near the wound. This is normal. What if I start to bleed? If you have a little bleeding from the wound: Sit down right away. Put firm pressure to the wound for 10 minutes. Your nurse will show you how to do this. If the bleeding stops: Sit quietly and do not move the affected arm for 2 hours. Tell your doctor as soon as you can. If the bleeding does not stop after 10 minutes, or if there is a lot blood or spurting: HOLD firm pressure and call 911 right away. Do not drive yourself to the hospital. Just sit or lie down and hold firm pressure. When do I follow up with my doctor? We will schedule a time for you to see the doctor in the clinic. When should I call the doctor? Call your doctor right away if you have any of these: ? Changes in the bruise or lump ? Redness near the wound ? Drainage from the wound ? Increased pain or swelling near the wound ? Numbness in your arm or wrist If you cannot contact your doctor, please go to the nearest emergency department. * Pre-Procedure Note - Fernando Haley DO - 10/16/2024 8:58 PM EDT Images from the original note were not included. CARDIOLOGY PRE-PROCEDURAL ASSESSMENT AND SEDATION PLAN Indication for procedure: The encounter diagnosis was Multiple vessel coronary artery disease. Planned Procedure: Coronary angiography, RHC Relevant past medical history: CAD, HLD, HTN Relevant review of systems: NA Relevant Labs: Lab Results Component Value Date EGFR 72 11/09/2023 Planned Sedation/Anesthesia: Moderate Airway assessment: normal Mallampati Score: II (hard and soft palate, upper portion of tonsils anduvula visible) ASA: ASA 3 - Patient with moderate systemic disease with functional limitations Directed physical examination: There were no vitals filed for this visit. GENERAL: Awake, alert, NAD HEENT: NCAT NECK: No appreciable JVD CARDIAC: Regular rate, regular rhythm, normal S1/S2, no m/r/g, 2+ radial pulses bilaterally PULM: CTAB without increased work of breathing ABD: Soft, NT, ND EXT: Warm and well perfused, no LE edema SKIN: No rashes or lesions NEURO: A&Ox4, moving all extremities spontaneously Benefits, risks and alternatives of procedure and planned sedation have been discussed with the patient and/or their field service representative. All questions answered and they agree to proceed. Shaq Haley DO Department of Cardiovascular Disease Fellow, PGY-4 * H&P - Fernando Haley DO - 10/16/2024 8:56 PM EDT Images from the original note were not included. History and Physical History of Present Illness Quirino Gonzáles is a 54 y.o. male with past medical history significant for CAD, HLD, HTN, who presented to [facility] on 10/16/24 for elective right heart catheterization and coronary angiography. Review of Systems: A 14 point ROS was reviewed and is negative other than what is reported in the HPI. Past Medical History[1] Medications: Current Outpatient Medications Medication Instructions busPIRone (BUSPAR) 10 mg, 2 times daily cholecalciferol (VITAMIN D-3) 50,000 Units, Weekly diclofenac (VOLTAREN) 75 mg, 2 times daily ibuprofen 800 MG tablet TAKE 1 TABLET BY MOUTH THREE TIMES DAILY NEEDED FOR PAIN FOR 7 DAYS losartan (COZAAR) 50 mg, Daily methocarbamol (ROBAXIN) 750 mg, 4 times daily omeprazole (PRILOSEC) 20 mg, Daily before breakfast simvastatin (ZOCOR) 40 mg, Every evening zolpidem (AMBIEN) 10 mg, Daily Surgical History[2] Family History[3] Social History Socioeconomic History Marital status: Spouse name: Not on file Number of children: Not on file Years of education: Not on file Highest education level: Not on file Occupational History Not on file Tobacco Use Smoking status: Never Smokeless tobacco: Never Vaping Use Vaping status: Never Used Substance and Sexual Activity Alcohol use: Never Drug use: Never Sexual activity: Not on file Other Topics Concern Not on file Social History Narrative Not on file Social Drivers of Health Financial Resource Strain: Not on file Food Insecurity: No Food Insecurity (03/13/2023) Received from [employer] ([place], [place], [place], [place]) Food Insecurity Food run out past 12 months: Not on file Food did not last past 12 months: Not on file Transportation Needs: Not on file Physical Activity: Not on file Stress: Not on file (12/28/2023) Social Connections: Unknown (04/02/2023) Received from [facility] Family and Community Support Help with Day-to-Day Activities: Not on file Lonely or Isolated: Not on file Intimate Partner Violence: Unknown (04/02/2023) Received from [facility] Abuse Screen Unsafe at Home or Work/School: Not on file Feels Threatened by Someone?: Not on file Does Anyone Keep You from Contacting Others or Doint Things Outside the Home?: Not on file Physical Sign of Abuse Present: Not on file Housing Stability: Unknown (04/02/2023) Received from [facility] Housing Stability Current Living Arrangements: Not on file Potentially Unsafe Housing Conditions: Not on file Allergies: Allergies[4] Vitals There were no vitals taken for this visit. No intake or output data in the 24 hours ending 10/16/242055 PAP: ()/() Physical Exam GENERAL: Awake, alert, NAD HEENT: NCAT NECK: No appreciable JVD CARDIAC: Normal rate, regular rhythm, no murmur appreciated PULM: CTAB. No tachypnea ABD: Nontender EXT: Warm, no LE edema SKIN: No rashes or lesions NEURO: No gross focal neuro deficits PSYCH: Normal mood and affect Labs and Imaging Labs in last 18 hours CBC WBC ?? Hb ?? Plt ?? Hct ?? ANC ?? INR ??, PTT ??, Anti-Xa ?? BMP Na ?? Cl ?? BUN ?? Glu ?? K ?? Co2 ?? Cr ?? Ca ?? iCa ?? Mg ??, Phos ?? Lactate ?? LFT AST ?? AlkPhos ?? T Prot ?? ALK ?? Bili ?? Alb ?? D.Bili ?? The ASCVD Risk score (Octavio DK, et al., 2019) failed to calculate for the following reasons: Cannot find a previous HDL lab Cannot find a previous total cholesterol lab ECG: No electrocardiogram results found for the past 3 days. Assessment and Plan Quirino Gonzáles is a 54 y.o. male with past medical history significant for CAD, HTN, HLD, who presented to [facility] on 10/16/24 for elective coronary angiography and RHC. -- Proceed with planned procedure. Consent obtained at bedside. Pre-sedation documentation completed. -- Access plan: Right internal jugular vein and right radial artery -- Relevant labs: CBC and BMP -- Anticoagulation/antiplatelet plan: pending above results Shaq Haley DO Department of Cardiovascular Disease Fellow, PGY-4 [1] Past Medical History: Diagnosis Date Hyperlipidemia Hypertension Kidney stone PONV (postoperative nausea and vomiting) [2] Past Surgical History: Procedure Laterality Date HEMORRHOID SURGERY KIDNEY STONE SURGERY TONSILECTOMY, ADENOIDECTOMY, BILATERAL MYRINGOTOMY AND TUBES [3] Family History Problem Relation Name Age of Onset Prostate cancer Other great uncle [4] Allergies Allergen Reactions Aspirin Other - please document in the comment field Nose bleeds Cosigned by Candelaria Hahn MD at 10/17/2024 3:20 PM EDT Associated attestation - Candelaria Hahn MD - 10/17/2024 3:20 PM EDT I saw and evaluated the patient with the resident/fellow. I discussed the case with the resident/fellow and agree with the findings and plan as documented. documented in this encounter Plan of Treatment Upcoming Encounters Date Type Department Care Team (Late st Contact Info) Description 03/10/2025 10:00 AM EST Office Visit [facility] Multidisciplinary Oncology Clinic [address] [place] [address] Megan Spangler MD [address] [facility] [address] [place] [address] documented as of this encounter Goals Goal Patient Goal Type Associated Problems Recent Progress Patient-Stated? Author Autogenerat ed Goal Care Plan Autogenerated Problem No Bre, Ramesh O documented as of this encounter Procedures Procedure Name Priority Date/Time Associated Diagnosis Comments LEFT HEART CATHETERIZATION Routine 10/17/2024 9:42 AM EDT Multiple vessel coronary artery disease CORONARY ANGIOGRAPHY Routine 10/17/2024 9:42 AM EDT Multiple vessel coronary artery disease POCT CREATININE ISTAT UNSOLICITED RESULTS Routine 10/17/2024 7:21 AM EDT CBC W/O DIFFERENTIAL STAT 10/17/2024 7:12 AM EDT BASIC METABOLIC PANEL, PLASMA STAT 10/17/2024 7:12 AM EDT documented in this encounter Results * CORONARY ANGIOGRAPHY, LEFT HEART CATHETERIZATION (10/17/2024 9:42 AM EDT) Anatomical Region Laterality Modality Other Narrative 10/18/2024 1:38 AM EDT Table formatting from the original result was not included. Images from the original result were not included. Cardiac Catheterization Report: Procedures: 1. Coronary Angiography 2. Left Heart Catheterization Indications: 1. Stable angina Impressions: 1. Co-dominant coronary circulation with evidence of single vessel obstructive CAD involving the proximal RCA. 2. Mildly elevated LVEDP [16 mm hg]. Recommendations: Planned same-day discharge. Vascular access and post-cardiac catheterization care per protocol. Given single vessel stable CAD, recommend aggressive medical management. If patient continues to experience angina despite medical therapy, outpatient PCI of RCA can be scheduled. Comprehensive cardiovascular risk factor reduction including weight loss, dietary counseling, tobacco cessation, glycemic control, management of hypertension and dyslipidemia, as applicable. Candelaria Hahn MD, [facility], [facility] Client Support Administrator [facility] [place] [employer] Chasercontainer finishing inspector Division of Cardiovascular Medicine [facility] Email: [email or web address] Procedure Details After informed consent was obtained, the patient was brought to the cardiac catheterization laboratory. A time out was done to confirm the correct patient, site and procedure. The patient's right arm was prepped and draped in sterile fashion. The skin overlying the patient's right radial region was anesthetized with 1% lidocaine. Using modified Seldinger technique a 21-gauge micropuncture needle was used to puncture the right radial artery, and 0.021 guidewire was advanced into the radial artery without difficulty. A 6F long sheath was advanced over a guidewire and flushed. At that time a cocktail of heparin and nitroglycerin was given through the radial sheath. A JR 4 catheter was then advanced into the ascending aorta over a 0.035 J-tipped guidewire and into the left ventricle. LVEDP was then measure and pullback performed. Selective right and left coronary arteriography was then performed using 6F JR 4 and JL 3.5 diagnostic catheters in a variety of projections using small amounts of isosmolar contrast material, which was injected by hand. The diagnostic catheter was then withdrawn and the radial introducer sheath aspirated and flushed. A TR band was placed, and the radial artery introducer was removed. The TR band was inflated with 16 cc of air. The catheterization site was dressed with a sterile dressing, and the patient was transferred back to the warehouse general laborer holding area in good condition. Coronary Findings Diagnostic Dominance: Co-dominant Left Main: Large caliber vessel which originates from the left coronary cusp and bifurcates giving rise to the left anterior descending and left circumflex arteries. Left Anterior Descending: Large caliber vessel which provides one diagonal branches and multiple septal perforators prior to wrapping the apex to terminate as an apical recurrent branch. There is 40 % diffuse disease in the mid-LAD. Left Circumflex: Large caliber vessel which provides one marginal branches prior to terminating in the left AV groove and providing co-dominant circulation. Right Coronary Artery: Large caliber vessel which originates from the right coronary cusp and is co-dominant for posterior circulation, providing one acute marginal branch, the PDA, and a small PL system. There is a 70% focal stenosis of the proximal RCA. Intervention No interventions have been documented. Left Ventricle LV end diastolic pressure is elevated. Hemodynamic Data Pressures Phase: Resting Aortic AO: 117/82 (101) mmHg us Jorge Adkins MD CV CARDIAC CATH PROCEDURES Fi nal Result * POCT creatinine (10/17/2024 7:21 AM EDT) [facility] Creatinine, Point of Care 1.0 0.7 - 1.2 mg/dL 10/17/2024 7:25 AM EDT [facility] POCT eGFR 89 mL/min/1. 73m*2 10/17/2024 7:25 AM EDT [facility] Fingernail Sculpturer ID Sarahy Yang 10/17/2024 7:25 AM EDT [facility] Device ID [id number] 10/17/2024 7:25 AM EDT [facility] Comment 10/17/2024 7:25 AM EDT [facility] Comment:Testing performed on i-STAT at the point of care. Reported eGFRcr in mL/min/1.73m2 is based the CKD-EPI 2020 equation that does not use a race coefficient. Blood Venous blood specimen / Unknown 10/17/2024 7:21 AM EDT 10/17/2024 7:25 AM EDT us Candelaria Hahn MD LAB POINT OF CARE TE ST DOCKED DEVICE UNSOLICITED RESULTS Final Result [facility] [address] [place] [address] * (ABNORMAL) Basic metabolic panel (10/17/2024 7:12 AM EDT) Glucose, Plasma 116(H) 74 - 99 mg/dL 10/17/2024 8:35 AM EDT [facility] BUN, Plasma 17 7 - 21 mg/dL 10/17/2024 8:35 AM EDT [facility] Creatinine, Plasma 0.92 0.70 - 1.20 mg/dL 10/17/2024 8:35 AM EDT [facility] BUN/Creatinine Ratio 18 10/17/2024 8:35 AM EDT [facility] Sodium, Plasma 137 136 - 145 mmol/L 10/17/2024 8:35 AM EDT [facility] Potassium, Plasma 6.0(H) 3.6 - 4.9 mmol/L 10/17/2024 8:35 AM EDT [facility] Comment:Hemolyzed, result ma y be falsely increased. Chloride, Plasma 105 97 - 107 mmol/L 10/17/2024 8:35 AM EDT [facility] CO2, Plasma 19(L) 22 - 29 mmol/L 10/17/2024 8:35 AM EDT [facility] Anion Gap 13 6 - 16 mmol/L 10/17/2024 8:35 AM EDT [facility] Total Calcium, Plasma 9.3 8.9 - 10.2 mg/dL 10/17/2024 8:35 AM EDT [facility] eGFRcr 98.9 mL/min/1.7 3m*2 10/17/2024 8:35 AM EDT [facility] Comment:Reported eGFRcr in m L/min/1.73m2 is based the CKD-EPI 2020 equation that does not use a race coefficient. Blood Venous blood specimen / Unknown Venipuncture / Unknown 10/17/2024 7:12 AM EDT 10/17/2024 7:28 AM EDT us Candelaria Hahn MD LAB BLOOD ORDERABLES Final Resu lt [facility] [address] [place] [address] * Hemogram (CBC) (10/17/2024 7:12 AM EDT) WBC Count 6.70 3.70 - 10.30 10*3/uL LAB HEMATOLOGY METHOD 10/17/2024 7:39 AM EDT [facility] RBC Count 4.75 4.60 - 6.10 10*6/uL LAB HEMATOLOGY METHOD 10/17/2024 7:39 AM EDT [facility] HGB 14.1 13.7 - 17.5 g/dL LAB HEMATOLOGY METHOD 10/17/2024 7:39 AM EDT [facility] HCT 44.0 40.0 - 51.0 % LAB HEMATOLOGY METHOD 10/17/2024 7:39 AM EDT [facility] Platelet Count 179 155 - 369 10*3/uL LAB HEMATOLOGY METHOD 10/17/2024 7:39 AM EDT [facility] MCV 93 79 - 98 fL LAB HEMATOLOGY METHOD 10/17/2024 7:39 AM EDT [facility] MCH 29.7 26.0 - 32.0 pg LAB HEMATOLOGY METHOD 10/17/2024 7:39 AM EDT [facility] MCHC 32.0 30.7 - 35.5 g/dL LAB HEMATOLOGY METHOD 10/17/2024 7:39 AM EDT [facility] RDW 12.3 11.5 - 14.5 % LAB HEMATOLOGY METHOD 10/17/2024 7:39 AM EDT [facility] MPV 10.3 8.8 - 12.5 fL LAB HEMATOLOGY METHOD 10/17/2024 7:39 AM EDT [facility] nRBC 0.0 <=0.0 per 100 WBCs LAB HEMATOLOGY METHOD 10/17/2024 7:39 AM EDT [facility] Blood Venous blood specimen / Unknown Venipuncture / Unknown 10/17/2024 7:12 AM EDT 10/17/2024 7:28 AM EDT us Candelaria Hahn MD LAB BLOOD ORDERABLES Final Resu lt [facility] [address] [place] [address] documented in this encounter Visit Diagnoses Diagnosis Multiple vessel coronary artery disease Multiple vessel coronary artery disease documented in this encounter Administered Medications Inactive Administered Medications - up to 3 most recent administrations Medication Order MAR Action Action Date Dose Rate Site acetaminophen (Tylenol) tablet 650 mg 650 mg, Oral, Every 4 hours PRN, Starting on Thu10/17/24 at 1226, Until Thu10/17/24 at 1511, Routine, Recovery(Phase II-Outpatient)/On Unit(Inpatient), mild pain, fever sodium chloride 0.9 % flush 10 mL 10 mL, Intravenous, Every 12 hours, First dose on Thu10/17/24 at 0800, Until Discontinued, Routine, On Unit - Preprocedure sodium chloride 0.9 % flush 10 mL 10 mL, Intravenous, As needed, Starting on Thu10/17/24 at 0701, Until Thu10/17/24 at 1511, Routine, On Unit - Preprocedure, line care sodium chloride 0.9 % flush 10 mL 10 mL, Intravenous, Every 12 hours, First dose on Thu10/17/24 at 0800, Until Discontinued, Routine, Holding - Preprocedure sodium chloride 0.9 % flush 10 mL 10 mL, Intravenous, As needed, Starting on Thu10/17/24 at 0701, Until Thu10/17/24 at 1511, Routine, Holding - Preprocedure, line care documented in this encounter Active and Recently Administered Medications Times are shown in EDT. Scheduled Medication Order 10/15/2024 10/16/2024 10/17/2024 sodium chloride 0.9 % flush 10 mL(Linked Group 1) 10 mL, Intravenous, Every 12 hours, First dose on Thu10/17/24 at 0800, Until Discontinued, Routine, On Unit - Preprocedure 0800 (Canceled Entry - Provider: Automatic Discharge Provider - Comment: Automatically canceled at discontinue of medication order) sodium chloride 0.9 % flush 10 mL(Linked Group 2) 10 mL, Intravenous, Every 12 hours, First dose on Thu10/17/24 at 0800, Until Discontinued, Routine, Holding - Preprocedure 0800 (Canceled Entry - Provider: Automatic Discharge Provider - Comment: Automatically canceled at discontinue of medication order) PRN Medication Order 10/15/2024 10/16/2024 10/17/2024 acetaminophen (Tylenol) tablet 650 mg 650 mg, Oral, Every 4 hours PRN, Starting on Thu10/17/24 at 1226, Until Thu10/17/24 at 1511, Routine, Recovery(Phase II-Outpatient)/On Unit(Inpatient), mild pain, fever aspirin chewable tablet (CANCELED) As needed, Starting on Thu10/17/24 at 0859, Until Thu10/17/24 at 0949, Routine, Intraprocedure 0859 (Given - Provid er: Josseline Perry RN) fentaNYL (Sublimaze) injection (CANCELED) As needed, Starting on Thu10/17/24 at 0917, Until Thu10/17/24 at 0949, Routine, Intraprocedure 0917 (Given - Provid er: Josseline Perry RN)0919 (Given - Provider: Josseline Perry RN) heparin (porcine) injection (CANCELED) As needed, Starting on Thu10/17/24 at 0920, Until Thu10/17/24 at 0949, Routine, Intraprocedure 0920 (Given - Provid er: Fernando Haley DO) iodixanol (VISIPaque) 320 MG/ML injection (CANCELED) As needed, Starting on Thu10/17/24 at 0940, Until Thu10/17/24 at 0949, Routine, Intraprocedure 0940 (Given - Provid er: Candelaria Hahn MD) lidocaine (Xylocaine) 2 % injection (CANCELED) As needed, Starting on Thu10/17/24 at 0918, Until Thu10/17/24 at 0949, Routine, Intraprocedure 0918 (Given - Provid er: Fernando Haley DO) midazolam (Versed) injection (CANCELED) As needed, Starting on Thu10/17/24 at 0917, Until Thu10/17/24 at 0949, Routine, Intraprocedure 0917 (Given - Provid er: Josseline Perry RN)09 (Given - Provider: Josseline Perry RN) nitroglycerin (Tridil) in D5W IV solution 100 mcg/mL (CANCELED) As needed, Starting on Thu10/17/24 at 0920, Until Thu10/17/24 at 0949, Routine, Intraprocedure 0920 (Given - Provid er: Fernando Haley DO) ondansetron (Zofran) injection (CANCELED) As needed, Starting on Thu10/17/24 at 0917, Until Thu10/17/24 at 0949, Routine, Intraprocedure 09 (Given - Provid er: Josseline Perry RN) sodium chloride 0.9 % flush 10 mL(Linked Group 1) 10 mL, Intravenous, As needed, Starting on Thu10/17/24 at 0701, Until Thu10/17/24 at 1511, Routine, On Unit - Preprocedure, line care sodium chloride 0.9 % flush 10 mL(Linked Group 2) 10 mL, Intravenous, As needed, Starting on Thu10/17/24 at 0701, Until Thu10/17/24 at 1511, Routine, Holding - Preprocedure, line care Linked Groups Order Group 1: Insert peripheral IV (CANCELED) Once, On Thu10/17/24 at 0702, For 1 occurrence, On Unit - Preprocedure And Saline lock IV (CANCELED) Once, On Thu10/17/24 at 0702, For 1 occurrence, On Unit - Preprocedure And sodium chloride 0.9 % flush 10 mLJump to med 10 mL, Intravenous, Every 12 hours, First dose on Thu10/17/24 at 0800, Until Discontinued, Routine, On Unit - Preprocedure And sodium chloride 0.9 % flush 10 mLJump to med 10 mL, Intravenous, As needed, Starting on Thu10/17/24 at 0701, Until Thu10/17/24 at 1511, Routine, On Unit - Preprocedure, line care Group 2: Insert peripheral IV (CANCELED) Once, On Thu10/17/24 at 0702, For 1 occurrence, If a device procedure must have two IV lines with one in the left., Holding - Preprocedure And Saline lock IV (CANCELED) Once, On Thu10/17/24 at 0702, For 1 occurrence, Holding - Preprocedure And sodium chloride 0.9 % flush 10 mLJump to med 10 mL, Intravenous, Every 12 hours, First dose on Thu10/17/24 at 0800, Until Discontinued, Routine, Holding - Preprocedure And sodium chloride 0.9 % flush 10 mLJump to med 10 mL, Intravenous, As needed, Starting on Thu10/17/24 at 0701, Until Thu10/17/24 at 1511, Routine, Holding - Preprocedure, line care documented in this encounter Additional Health Concerns Active Problems Noted Date Diagnosed Date Autogenerated Problem 10/07/2024 Assessment Noted Time A fall risk assessment has been complete d for the patient 03/18/2024 2:36 PM EST A Body Mass Index follow-up plan has been documented for the patient 10/17/2024 12:28 PM EDT documented as of this encounter Care Teams Local Area Network Administrator Relationship Specialty Start Date End Date Pcp, [place] [address] PCP - General Family Medicine 09/04/23 documented as of this encounter
--- OUTSIDE RECORDS SUMMARY | 2024-10-17 08:25 | XMS_ITS | Encounter Summary ---
Author Organization [facility] Address [address] [place] [address] Care Team Providers Care Bodywork Therapist Name Role Phone Pcp, No Primary Care [...] Right heart catheterization Candelaria Hahn MD [address] [place] [address] Phone: tel: fax: Cardiac Corrections Counselor [address] [place] [address] Phone: tel: Referral ID Status Reason Start Date Expiration Date Visits Re quested Visits Authorized [id number] 1 1 Encounter Details Date Type Department Care Team (Late st Contact Info) Description 10/17/2024 8:25 AM EDT - 10/17/2024 10:40 AM EDT Surgery Cardiac Corrections Counselor [address] [place] [phone] Candelaria Hahn MD [address] [place] [address] Coronary angiography [68123 (CPT )] Social History Tobacco Use Types Packs/Day Years [...] Sign Reading Time Taken Comments Blood Pressure 114/79 10/17/2024 10:30 AM EDT Pulse 60 10/17/2024 10:30 AM EDT Temperature 36.7 C (98.1 F) 10/17/2024 9:53 AM EDT Respiratory Rate 13 10/17/2024 10:30 AM EDT Oxygen Saturation 95% 10/17/2024 10:30 AM EDT Inhaled Oxygen Concentration - - Weight [...] a day. cholecalciferol (Vitamin D-3) 1.25 MG (22444 UT) capsule Take 1 capsule by mouth [...] us. Physician or Nurse Notes: * [facility] [employer] - Kathleen Lazcano RN - 10/17/2024 12:26 [...] no heavy work or lifting, driving a [employer] car, or vigorous sports. ? Do not [...] been discussed with the patient and/or their traveling representative. All questions answered and they agree to proceed. Shaq Haley DO Department of Cardiovascular Disease Fellow, PGY-4 * H&P - Fernando Haley DO - 10/16/2024 8:56 PM EDT Images from the original note were not included. History and Physical History of Present Illness Quirino Gonzáles is a 54 y.o. male with past medical history significant for CAD, HLD, HTN, who presented to [facility] on 10/16/24 for elective right [...] Insecurity: No Food Insecurity (03/13/2023) Received from [employer] ([place], [place], [place], [place]) Food Insecurity Food run out past 12 months: Not on file Food did not last past 12 months: Not on file Transportation Needs: Not on file Physical Activity: Not on file Stress: Not on file (12/28/2023) Social Connections: Unknown (04/02/2023) Received from [facility] Family and Community Support Help with Day-to-Day Activities: Not on file Lonely or Isolated: Not on file Intimate Partner Violence: Unknown (04/02/2023) Received from [facility] Abuse Screen Unsafe at Home or Work/School: Not on file Feels Threatened by Someone?: Not on file Does Anyone Keep You from Contacting Others or Doint Things Outside the Home?: Not on file Physical Sign of Abuse Present: Not on file Housing Stability: Unknown (04/02/2023) Received from [facility] Housing Stability Current Living Arrangements: Not [...] for CAD, HTN, HLD, who presented to [facility] on 10/16/24 for elective coronary [...] Description 03/10/2025 10:00 AM EST Office Visit [facility] Multidisciplinary Oncology Clinic [address] [place] [address] Megan Spangler MD [address] [facility] [address] [place] [address] documented as of this encounter Goals Goal [...] and dyslipidemia, as applicable. Candelaria Hahn MD, [facility], [facility] S Iron Worker [facility] Heart [facility] Vascular [place] Dope Mixercassandra developer Division of Cardiovascular Medicine [facility] Email: [email or web address] Procedure Details After informed consent was obtained, [...] the patient was transferred back to the wetlands conservation laborer holding area in good condition. Coronary [...] * POCT creatinine (10/17/2024 7:21 AM EDT) [facility] Creatinine, Point of Care 1.0 0.7 - 1.2 mg/dL 10/17/2024 7:25 AM EDT [facility] POCT eGFR 89 mL/min/1. 73m*2 10/17/2024 7:25 AM EDT [facility] Tobacco Sampler ID Sarahy Yang 10/17/2024 7:25 AM EDT [facility] [employer] [facility] LAB Device ID [id number] 10/17/2024 7:25 AM EDT [facility] Comment 10/17/2024 7:25 AM EDT [facility] Comment:Testing performed on i-STAT [...] Final Result [facility] [address] LAB [address] [place] [address] * (ABNORMAL) Basic metabolic panel (10/17/2024 7:12 AM EDT) Glucose, Plasma 116(H) 74 - 99 mg/dL 10/17/2024 8:35 AM EDT [facility] BUN, Plasma 17 7 - 21 mg/dL 10/17/2024 8:35 AM EDT [facility] Creatinine, Plasma 0.92 0.70 - 1.20 mg/dL 10/17/2024 8:35 AM EDT [facility] BUN/Creatinine Ratio 18 10/17/2024 8:35 AM EDT [facility] Sodium, Plasma 137 136 - 145 mmol/L 10/17/2024 8:35 AM EDT [facility] Potassium, Plasma 6.0(H) 3.6 - 4.9 mmol/L 10/17/2024 8:35 AM EDT [facility] Comment:Hemolyzed, result ma y be falsely increased. Chloride, Plasma 105 97 - 107 mmol/L 10/17/2024 8:35 AM EDT [facility] CO2, Plasma 19(L) 22 - 29 mmol/L 10/17/2024 8:35 AM EDT [facility] Anion Gap 13 6 - 16 mmol/L 10/17/2024 8:35 AM EDT [facility] Total Calcium, Plasma 9.3 8.9 - 10.2 mg/dL 10/17/2024 8:35 AM EDT [facility] eGFRcr 98.9 mL/min/1.7 3m*2 10/17/2024 8:35 AM EDT [facility] Comment:Reported eGFRcr in m L/min/1.73m2 is based the CKD-EPI 2020 equation that does not use a race coefficient. Blood Venous blood specimen / Unknown Venipuncture / Unknown 10/17/2024 7:12 AM EDT 10/17/2024 7:28 AM EDT us Candelaria Hahn MD LAB BLOOD ORDERABLES Final Resu lt [facility] [address] [place] [address] * Hemogram (CBC) (10/17/2024 7:12 AM EDT) WBC Count 6.70 3.70 - 10.30 10*3/uL LAB HEMATOLOGY METHOD 10/17/2024 7:39 AM EDT [facility] RBC Count 4.75 4.60 - 6.10 10*6/uL LAB HEMATOLOGY METHOD 10/17/2024 7:39 AM EDT [facility] HGB 14.1 13.7 - 17.5 g/dL LAB HEMATOLOGY METHOD 10/17/2024 7:39 AM EDT [facility] HCT 44.0 40.0 - 51.0 % LAB HEMATOLOGY METHOD 10/17/2024 7:39 AM EDT [facility] Platelet Count 179 155 - 369 10*3/uL LAB HEMATOLOGY METHOD 10/17/2024 7:39 AM EDT [facility] MCV 93 79 - 98 fL LAB HEMATOLOGY METHOD 10/17/2024 7:39 AM EDT [facility] MCH 29.7 26.0 - 32.0 pg LAB HEMATOLOGY METHOD 10/17/2024 7:39 AM EDT [facility] MCHC 32.0 30.7 - 35.5 g/dL LAB HEMATOLOGY METHOD 10/17/2024 7:39 AM EDT [facility] RDW 12.3 11.5 - 14.5 % LAB HEMATOLOGY METHOD 10/17/2024 7:39 AM EDT [facility] MPV 10.3 8.8 - 12.5 fL LAB HEMATOLOGY METHOD 10/17/2024 7:39 AM EDT [facility] nRBC 0.0 <=0.0 per 100 WBCs LAB HEMATOLOGY METHOD 10/17/2024 7:39 AM EDT [facility] Blood Venous blood specimen / Unknown Venipuncture / Unknown 10/17/2024 7:12 AM EDT 10/17/2024 7:28 AM EDT us Candelaria Hahn MD LAB BLOOD ORDERABLES Final Resu lt [facility] [address] [place] [address] documented in this encounter Visit Diagnoses Diagnosis [...] Unit(Inpatient), mild pain, fever aspirin chewable tablet As needed, Starting on Thu10/17/24 at 0859, Until Thu10/17/24 at 0949, Routine, Intraprocedure Given 10/17/2024 8:59 AM EDT 81 mg fentaNYL (Sublimaze) injection As needed, Starting on Thu10/17/24 at 0917, Until Thu10/17/24 at 0949, Routine, Intraprocedure Given 10/17/2024 9:19 AM EDT 25 mcg Given 10/17/2024 9:17 AM EDT 25 mcg heparin (porcine) injection As needed, Starting on Thu10/17/24 at 0920, Until Thu10/17/24 at 0949, Routine, Intraprocedure Given 10/17/2024 9:20 AM EDT 5,000 Units iodixanol (VISIPaque) 320 MG/ML injection As needed, Starting on Thu10/17/24 at 0940, Until Thu10/17/24 at 0949, Routine, Intraprocedure Given 10/17/2024 9:40 AM EDT 95 mL lidocaine (Xylocaine) 2 % injection As needed, Starting on Thu10/17/24 at 0918, Until Thu10/17/24 at 0949, Routine, Intraprocedure Given 10/17/2024 9:18 AM EDT 5 mL Right Radial midazolam (Versed) injection As needed, Starting on Thu10/17/24 at 0917, Until Thu10/17/24 at 0949, Routine, Intraprocedure Given 10/17/2024 9:19 AM EDT 0.5 mg Given 10/17/2024 9:17 AM EDT 1 mg nitroglycerin (Tridil) in D5W IV solution 100 mcg/mL As needed, Starting on Thu10/17/24 at 0920, Until Thu10/17/24 at 0949, Routine, Intraprocedure Given 10/17/2024 9:20 AM EDT 200 mcg ondansetron (Zofran) injection As needed, Starting on Thu10/17/24 at 0917, Until Thu10/17/24 at 0949, Routine, Intraprocedure Given 10/17/2024 9:17 AM EDT 4 mg sodium chloride 0.9 % flush 10 mL [...] documented as of this encounter Care Teams Bodywork Therapist Relationship Specialty Start Date End Date Pcp, [place] [address] PCP - General Family Medicine 09/04/23 documented as of this encounter
--- NOTE | 2024-10-18 14:53 | XR_ITS ---
FINAL REPORT CLINICAL HISTORY: right hand pain, right index finger fx COMPARISON: 10/15/2024 FINDINGS: AP, lateral and oblique views of the right hand were obtained. There is no change in the fracture present at the dorsal base of the distal phalanx, second finger. No new fracture is identified. The joint spaces are preserved. The soft tissues are normal. IMPRESSION: Fracture present at the dorsal base of the distal phalanx, second finger, is stable in appearance when compared to the prior exam of 10/15/2024. Reviewed, Interpreted and Dictated by Claudia Boles MD Transcribed by [employer] [place] Authenticated and . [facility]
--- OUTSIDE RECORDS SUMMARY | 2024-10-18 14:55 | XMS_ITS | Encounter Summary ---
Author Organization Healthcare Address [address] [place] [address] Care Team Providers Care Quality Tester Name Role Phone Pcp, No Primary Care Provider Unavailabl e Encounter Details Date Type Department Care Team (Late Contact Info) Description 09/20/2024 Telephone [facility] Radiology [address] [place] [phone] Harmony Muñoz, RN [facility]-DIAGNOSTIC RADIOLOGY Social History Tobacco Use [...] Encounters Date Type Department Care Team (Late Contact Info) Description 03/10/2025 10:00 AM EST Office Visit [facility] Multidisciplinary Oncology Clinic [address] [place] [address] Megan Spangler MD [address] [facility] [address] [place] [address] documented as of this encounter Visit Diagnoses Not on filedocumented in this encounter Additional Health Concerns Assessment Noted Time A fall risk assessment has been complete d for the patient 03/18/2024 2:36 PM EST A Body Mass Index follow-up plan has been documented for the patient 01/29/2024 3:48 PM EST documented as of this encounter Care Teams Quality Tester Relationship Specialty Start Date End Date Pcp, No [address] [place] [address] PCP - General Family Medicine 09/04/23 documented as of this encounter
--- OUTSIDE RECORDS SUMMARY | 2024-10-18 14:55 | XMS_ITS | Encounter Summary ---
Author Organization Healthcare Address [address] [place] [address] Care Team Providers Care Records Analyst Name Role Phone Pcp, No Primary Care [...] 10:00 AM EST Office Visit [facility] Multidisciplinary Oncology Clinic [address] [place] [address] Megan Spangler MD [address] [facility] [address] [place] [address] documented as of this encounter Goals Goal [...] documented as of this encounter Care Teams Records Analyst Relationship Specialty Start Date End Date Pcp, [place] [address] PCP - General Family Medicine 09/04/23 documented as of this encounter
--- OUTSIDE RECORDS SUMMARY | 2024-10-18 14:55 | XMS_ITS | Encounter Summary ---
Author Organization Healthcare Address [address] [place] [address] Care Team Providers Care Practice Consultant Name Role Phone Pcp, No Primary [...] Description 03/10/2025 10:00 AM EST Office Visit [facility] Multidisciplinary Oncology Clinic [address] [place] [address] Megan Spangler MD [address] [place] [address] documented as of this encounter Visit Diagnoses Not on filedocumented in this encounter Additional Health Concerns Assessment Noted Time A fall risk assessment has been complete d for the patient 03/18/2024 2:36 PM EST A Body Mass Index follow-up plan has been documented for the patient 01/29/2024 3:48 PM EST documented as of this encounter Care Teams Practice Consultant Relationship Specialty Start Date End Date Pcp, No [address] [place] [address] PCP - General Family Medicine 09/04/23 documented as of this encounter
--- OUTSIDE RECORDS SUMMARY | 2024-10-18 14:55 | XMS_ITS | Clinical Summary ---
Author Organization Healthcare Address [address] [place] [address] Care Team Providers Care Laboratory Immunologist Name Role Phone Pcp, No Primary Care Provider Unavailabl e Allergies No known active allergies Medications diclofenac (Voltaren) 75 MG EC tablet Take 1 tablet by mouth 2 times a day. Active omeprazole (PriLOSEC) [address] capsule Take 1 capsule by mouth daily before breakfast. 4 Active busPIRone (Buspar) 10 MG tablet Take 1 tablet by mouth 2 times a day. Active losartan (Cozaar) 50 MG tablet Take 1 tablet by mouth daily. Active cholecalciferol (Vitamin D-3) 1.25 MG (78552 UT) capsule Take 1 capsule by mouth 1 time per week. 4 Active zolpidem (Ambien) 10 MG tablet Take 1 tablet by mouth daily. Active methocarbamol (Robaxin) 750 MG tablet Take 1 tablet by mouth 4 times a day. 4 Active rosuvastatin (Crestor) 20 MG tablet Take 1 tablet by mouth daily. 90 tablet 1 5 10/18/19 Active aspirin 81 MG chewable tablet Chew 1 tablet daily. aspirin 81 mg tablet 360 tablet 5 Active simvastatin (Zocor) 40 MG tablet Take 1 tablet by mouth every evening. 10/18/19 Discontinu ed(Stop Taking at Discharge) ibuprofen 800 MG tablet TAKE 1 TABLET BY MOUTH THREE TIMES DAILY NEEDED FOR PAIN FOR 7 DAYS 4 10/18/19 Discontinu ed(Stop Taking at Discharge) aspirin 325 MG tablet Take 1 tablet by mouth daily. 10/18/19 25 Discontinu ed(Stop Taking at Discharge) Active Problems Problem Noted Date Diagnosed Date Inflammatory disease of prostate, unspecified Encounters Date Type Department Care Team Description 10/17/2024 8:25 AM EDT - 10/17/2024 10:40 AM EDT Surgery Cardiac Wellness Nurse Rn [address] [place] [address] Candelaria Hahn MD Coronary angiography [30604 (CPT )] 10/17/2024 6:29 AM EDT - 10/17/2024 1:11 PM EDT Hospital Encounter Cardiac Wellness Nurse Rn [address] [place] [address] Candelaria Hahn MD Multiple vessel coronary artery disease Discharge Disposition: Home or Self Care 10/17/2024 Travel 10/10/2024 Travel 09/27/2024 4:44 PM EDT - 09/27/2024 11:59 PM EDT Hospital Encounter [facility] Rad[facility] [address] [place] [phone] Chest pain, unspecified Discharge Disposition: Home or Self Care 09/27/2024 1:44 PM EDT - 09/27/2024 4:43 PM EDT Hospital Encounter [facility] [address] [place] [address] Chest pain, unspecified Discharge Disposition: Home or Self Care 09/27/2024 12:22 PM EDT - 09/27/2024 1:43 PM EDT Hospital Encounter [facility] [address] [place] [address] Mesfin Jacobsen RN Chest pain, unspecified Discharge Disposition: Home or Self Care 09/27/2024 Travel 09/20/2024 Travel 09/20/2024 Telephone [facility] [address] [place] [address] Harmony Muñoz, RN from Last 3 Months [...] Mass Index 29.2 10/17/2024 7:00 AM EDT Plan of Treatment Upcoming Encounters Date Type Department Care Team (Late st Contact Info) Description 03/10/2025 10:00 AM EST Office Visit [facility] Multidisciplinary Oncology Clinic [address] [place] [address] Megan Spangler MD [address] [facility] [address] [place] [address] Health Maintenance Due Date Last Done Comments [facility]-HIV Screening 1970 [facility]-Hepatitis C Screening 1970 [facility]-/Child/Adol SDOH Screenings 1970 [facility]- SDOH Screenings 1988 [facility]-Adult SDOH Screenings 1988 [facility]-DTaP,Tdap,and Td Vaccines (1 - Tdap) 1989 [facility]-Hepatitis B Vaccines (1 of 3 - 19+ 3-dose series) 1989 CT Colonography 09/27/2015 Colonoscopy 09/27/2015 [facility]-DNA 09/27/2015 FIT 09/27/2015 FOBT 09/27/2015 Sigmoidoscopy 09/27/2015 [facility]-Colorectal Cancer Screening 09/27/2015 [facility]-Pneumococcal Vaccine: 50+ Years (1 of 1 - PCV) 2020 [facility]-Zoster Vaccines (1 of 2) 2020 [id number] Vaccine (4 - 2023- season) 2023 02/14/2021, 06/06/2020, 05/09/2020 [facility]-Influenza Vaccine (#1) 10/24/202411/06, 12/12/2022, 11/28/2021, Additional history exists [facility]-Depression Screening 01/25/2025 01/26/2024 [facility]-Obesity Intervention Completed 10/07/2024, 04/2023 HPV Vaccines Aged Out No longer eligi [...] UNSOLICITED RESULTS Routine 10/17/2024 7:21 AM EDT BASIC METABOLIC PANEL, PLASMA STAT 10/17/2024 7:12 AM EDT CBC W/O DIFFERENTIAL STAT 10/17/2024 7:[address] ANGIO CARDIAC FFR Routine 09/27/2024 4:44 PM EDT Chest pain, unspecified CT ANGIO CARDIAC PLAQUE ANALYSIS Routine 09/27/2024 1:44 PM EDT Chest pain, unspecified CT ANGIO CARDIAC CORONARY ARTERIES Routine 09/27/2024 1:03 PM EDT Chest pain, unspecified from Last 3 Months Results * CORONARY ANGIOGRAPHY, LEFT HEART CATHETERIZATION [...] and dyslipidemia, as applicable. Candelaria Hahn MD, [facility], [facility] Embossing Tool Setter [facility] Heart & Vascular [place] Cloth Bin Packerpick up driver Division of Cardiovascular Medicine [facility] Email: [email or web address] Procedure Details After informed consent was obtained, [...] the patient was transferred back to the cytogenetics laboratory manager holding area in good condition. [...] * POCT creatinine (10/17/2024 7:21 AM EDT) [facility] Creatinine, Point of Care 1.0 0.7 - 1.2 mg/dL 10/17/2024 7:25 AM EDT [facility] POCT eGFR 89 mL/min/1. 73m*2 10/17/2024 7:25 AM EDT [facility] Heavy Equipment Mechanic ID Sarahy Yang 10/17/2024 7:25 AM EDT [facility] Device ID [id number] 10/17/2024 7:25 AM EDT [facility] Comment 10/17/2024 7:25 AM EDT CITY [...] ST DOCKED DEVICE UNSOLICITED RESULTS Final Result [facility] [address] LAB [address] [place] [address] * Hemogram (CBC) (10/17/2024 7:12 AM EDT) [...] Final Resu lt [facility] [address] [place] [address] * (ABNORMAL) Basic metabolic panel (10/17/2024 7:12 [...] MD LAB BLOOD ORDERABLES Final Resu lt [facility] [address] [place] [address] * CT Angio Cardiac FFR (09/27/2024 4:44 [...] Date Diagnosed Date Autogenerated Problem 10/07/2024 Insurance [facility] Advance Directives * Full Code (Latest Code Status on File) Date Activated Date Inactivated Comments 10/17/2024 10:01 AM 10/17/2024 3:16 PM Question Answer Comments I have reviewed the capacity from the link above and, if needed, have updated to appropriate status: Yes Care Teams Laboratory Immunologist Relationship Specialty Start Date End Date Pcp, No [address] [place] [address] PCP - General Family Medicine 09/04/23
--- OUTSIDE RECORDS SUMMARY | 2024-10-18 14:55 | XMS_ITS | Encounter Summary ---
Author Organization Healthcare Address [address] [place] [address] Care Team Providers Care Bag Sewer Name Role Phone Pcp, No Primary Care [...] Description 03/10/2025 10:00 AM EST Office Visit [facility] Multidisciplinary Oncology Clinic [address] [place] [address] Megan Spangler MD [id number] [place] [address] documented as of this encounter Visit Diagnoses Not on filedocumented in this encounter Additional Health Concerns Assessment Noted Time A fall risk assessment has been complete d for the patient 03/18/2024 2:36 PM EST A Body Mass Index follow-up plan has been documented for the patient 01/29/2024 3:48 PM EST documented as of this encounter Care Teams Bag Sewer Relationship Specialty Start Date End Date Pcp, No [address] [place] [address] PCP - General Family Medicine 09/04/23 documented as of this encounter
--- OUTSIDE RECORDS SUMMARY | 2024-10-18 14:55 | XMS_ITS | Clinical Summary ---
Author Organization [facility] Address [address] [place] [address] Phone [email or web address] Care Team Providers Care Transfer Man Name Role Phone Jem Guillermo Primary Care Provider [phone] Allergies Active Allergy Reactions Criticality Noted Date [...] each day. 1 Active D3-50 1.25 MG (26619 UT) capsule TAKE 1 CAPSULE BY MOUTH [...] topic Insurance [place] [address] [facility] [id number] [place] [address] Care Teams Transfer Man Relationship Specialty Start Date End Date Guillermo [place] [address] [address] PCP - General Family Medicine 10/24/19
--- OUTSIDE RECORDS SUMMARY | 2024-10-18 14:56 | XMS_ITS | Clinical Summary ---
Author Organization [employer] ([place], [place], [place], [place]) Address [address] [place] [address] Care Team Providers Care Railway Signal Operator Name Role Phone Christa Hart APRN Primary [...] Date Moises rded Speak language other than Argentine at home Not on file 03/13/2023 Want [...] season) 2023 Influenza Vaccine (#1) [address] [place] [address] BLUE CROSS/BLUE SHIELD Care Teams Railway Signal Operator Relationship Specialty Start Date End Date Christa Hart APRN [address] [address] PCP - General Nurse Practitioner 02/07/22
--- OUTSIDE RECORDS SUMMARY | 2024-10-18 14:56 | XMS_ITS | Referral Summary ---
Author Organization [employer] ([place], [place], [place]) Address [address] [place] [address] Care Team Providers Care Senior Patient Account Representative Name Role Phone Christa Hart APRN Primary [...] Date Moises rded Speak language other than Cymraes at home Not on file 03/13/2023 Want [...] Plan of Treatment Not on file Insurance [facility] [place] [id number] BLUE CROSS/BLUE SHIELD Care Teams Senior Patient Account Representative Relationship Specialty Start Date End Date Hart Christa, HANDHOLE MACHINE OPERATOR [address] [place], [place] [id number] PCP - General Nurse Practitioner 02/07/22
--- OUTSIDE RECORDS SUMMARY | 2024-10-18 14:56 | XMS_ITS | Clinical Summary ---
Author Organization [facility] Address [address] [place] [address] Care Team Providers Care Traffic Assistant Name Role Phone Keri Mckinnon APRN Primary [...] 12/09/2018, Additional history exists Insurance Care Teams Traffic Assistant Relationship Specialty Start Date End Date Keri Mckinnon APRN [address] [place] [address] PCP - General Nurse Practitioner 04/02/23
--- OUTSIDE RECORDS SUMMARY | 2024-10-18 14:56 | XMS_ITS | Encounter Summary ---
Author Organization [facility] Address [address] [place] [address] Care Team Providers Care Divorce Attorney Name Role Phone Pcp, No Primary Care Provider Unavailabl e Encounter Details Date Type Department Care Team (Latest Contact Info) Description 10/17/2024 Travel Social History Tobacco Use Types Packs/Day [...] on file documented as of this encounter Functional Status * Calculated C-SSRS Risk Score (Lifetime/Recent) Answer Date of Assessment Author No Risk Indicated 10/17/2024 7:10 AM EDT Kathleen Morton RN * Question Answer Date of Assessment Author 1. Wish to be (Past 1 Month) No 10/17/2024 7:10 AM EDT Sondra Lazcano RN 2. Non-Specific Active Suicidal Thoughts (Past 1 Month) No 10/17/2024 7:10 AM DARIENT Sondra Lazcano RN 6. Suicidal Behavior (Lifetime) No 10/17/2024 7:10 AM EDT Sondra Lazcano RN documented as of this encounter Plan of Treatment Upcoming Encounters Date Type Department Care Team (Late st Contact Info) Description 03/10/2025 10:00 AM EST Office Visit [facility] Multidisciplinary Oncology Clinic [address] [place] [address] Megan Spangler MD [address] [place] [address] documented as of this encounter Goals Goal Patient Goal Type Associated Problems Recent Progress Patient-Stated? Author Autogenerat ed Goal Care Plan Autogenerated Problem No Ramesh Díaz O documented as of this encounter Visit Diagnoses [...] documented as of this encounter Care Teams Divorce Attorney Relationship Specialty Start Date End Date Pcp, No [address] [place] [address] PCP - General Family Medicine 09/04/23 documented as of this encounter
== END 2024-10-18 23:59 | disposition home or self-care (01) ==
LOC: RAD 14:53
PROVIDERS: Visit Provider Physician Assistant
DX: S62.630A Displaced fracture of distal phalanx of right index finger, initial encounter for closed fracture (principal); M79.641 Pain in right hand; M20.019 Mallet finger of unspecified finger(s)
CPT/HCPCS: 73130

== ENCOUNTER 2024-11-01 13:44 | Outpatient (CLI) | payer BC, SELFPAY ==
--- OUTSIDE RECORDS SUMMARY | 2024-09-27 12:22 | XMS_ITS | Encounter Summary ---
Author Organization [facility] Address [address] [place] [address] Care Team Providers Care Yolk Spray Drier Name Role Phone Pcp, No Primary Care Provider Unavailabl e Reason for Referral * Imaging (Routine) - Closed Specialty Diagnoses / Procedures Referred By Contac t Referred To Contact Radiology Diagnoses Chest pain, unspecified Procedures CT Angio Cardiac Coronary Arteries Jorge Adkins MD [address] [place] [address] Phone: tel: fax: Referral ID Status Reason Start Date Expiration Date Visits Re quested Visits Authorized [id number] Closed 08/25/2024 02/24/2026 1 1 Reason for Visit * Imaging (Routine) - Closed Specialty Diagnoses / Procedures Referred By Contac t Referred To Contact Radiology Diagnoses Chest pain, unspecified Procedures CT Angio Cardiac Coronary Arteries Jorge Adkins MD [address] [place] [address] Phone: tel: fax: Referral ID Status Reason Start Date Expiration Date Visits Re quested Visits Authorized [id number] Closed 08/25/2024 02/24/2026 1 1 Encounter Details Date Type Department Care Team (Latest Contact Info) Description 09/27/2024 12:22 PM EDT - 09/27/2024 1:43 PM EDT Hospital Encounter [facility] Radiology [address] [place] [address] Mesfin Parker RN CH-PAV A 5 T2 [...] a day. cholecalciferol (Vitamin D-3) 1.25 MG (75386 UT) capsule Take 1 capsule by mouth [...] from the original note were not included. [id number] Understanding coronary computed tomography angiography (CCTA) Coronary [...] site Last Reviewed Date: 2023 00:00:00 ?? 5348-2004 The [employer]. All rights reserved. This information is not [...] Description 03/10/2025 10:00 AM EST Office Visit [facility] Multidisciplinary Oncology Clinic [address] [place] [address] Megan Spangler MD [address] [place] [address] documented as of this encounter Procedures Procedure [...] source 192 MDCT scanner (Somatom Force, Siemens [employer] Systems)was used for data acquisition. A non-contrast [...] documented as of this encounter Care Teams Yolk Spray Drier Relationship Specialty Start Date End Date Pcp, [place] [address] PCP - General Family Medicine 09/04/23 documented as of this encounter
--- OUTSIDE RECORDS SUMMARY | 2024-09-27 13:44 | XMS_ITS | Encounter Summary ---
Author Organization [facility] Address [address] [place] [address] Care Team Providers Care Outside Cutter Hand Name Role Phone Pcp, No Primary Care Provider Unavailabl e Reason for Referral * Imaging (Routine) - Closed Specialty Diagnoses / Procedures Referred By Contac t Referred To Contact Radiology Diagnoses Chest pain, unspecified Procedures CT Angio Cardiac Plaque Analysis Jorge Adkins MD [address] [place] [address] Phone: tel: fax: Referral ID Status Reason Start Date Expiration Date Visits Re quested Visits Authorized [id number] Closed 09/27/2024 03/29/2026 1 1 Reason for Visit * Imaging (Routine) - Closed Specialty Diagnoses / Procedures Referred By Contac t Referred To Contact Radiology Diagnoses Chest pain, unspecified Procedures CT Angio Cardiac Plaque Analysis Jorge Adkins MD [address] [place] [address] Phone: tel: fax: Referral ID Status Reason Start Date Expiration Date Visits Re quested Visits Authorized [id number] Closed 09/27/2024 03/29/2026 1 1 Encounter Details Date Type Department Care Team (Latest Contact Info) Description 09/27/2024 1:44 PM EDT - 09/27/2024 4:43 PM EDT Hospital Encounter [facility] Radiology [address] [place] [address] Chest pain, unspecified Discharge Disposition: Home or [...] on file documented as of this encounter Medications at Time of Discharge busPIRone (Buspar) 10 MG tablet Take 1 tablet by mouth 2 times a day. cholecalciferol (Vitamin D-3) 1.25 MG (05302 UT) capsule Take 1 capsule by mouth [...] evening. 10/17/2024 documented as of this encounter Plan of Treatment Upcoming Encounters Date Type Department Care Team (Late st Contact Info) Description 03/10/2025 10:00 AM EST Office Visit [facility] Multidisciplinary Oncology Clinic [address] [place] [address] Megan Spangler MD [address] [place] [address] documented as of this encounter Procedures Procedure Name Priority Date/Time Associated Diagnosis Comments CT ANGIO CARDIAC PLAQUE ANALYSIS Routine 09/27/2024 1:44 PM EDT Chest pain, unspecified documented in this encounter Results * CT Angio Cardiac Plaque Analysis (09/27/2024 1:44 PM EDT) Anatomical Region Laterality Modality Heart Computed Tomogra phy Impressions 09/28/2024 9:28 AM EDT The 50-69% stenosis in the left anterior descending coronary artery and right coronary artery has a Borderline likelihood of flow-limitation with an FFRct value of 0.78 for both vessels. RECOMMENDATIONS: Borderline risk FFRct Management recommendations: Consider cardiology consultation. Recommendation for anti-ischemic and preventative management should be considered as well as risk factor modification. By electronically signing this report, I, the attending physician, attest that I have personally reviewed the images/data for the above examination(s) and agree with the final edited report. Drafted by uDstin Rodriguez on 09/28/2024 9:20 AM Final report signed by Mesfin Hatch MD on 09/28/2024 9:28 AM Narrative 09/28/2024 9:28 AM EDT FFRct Coronary Analysis: TECHNIQUE: Coronary CTA images were sent for FFR CT analysis. FFRct values were evaluated corresponding to CTA identified lesions. FFRct is an FDA-approved non-invasive technique for defining the probability of flow-limiting coronary artery stenoses that correlates with invasive FFR measurements. FFRct values: >0.80: Low likelihood of flow-limitation 0.75-0.80: Borderline likelihood of flow-limitation <0.75: High likelihood of flow-limitation FINDINGS: Left Anterior Descending Artery: there is a Borderline likelihood of flow- limiting stenosis with an FFRct value of 0.78. Left Circumflex Artery: there is a Low likelihood of flow-limiting stenosis with an FFRct value of 0.81. Right Coronary Artery: there is a Borderline likelihood of flow-limiting stenosis with an FFRct value of 0.78. Procedure Note Mesfin Hatch MD - 09/28/2024 FFRct Coronary Analysis: TECHNIQUE: Coronary CTA images were sent for FFR CT analysis. FFRct valueswere evaluated corresponding to CTA identified lesions. FFRct is anFDA-approved non-invasive technique for defining the probability offlow-limiting coronary artery stenoses that correlates with invasive FFRmeasurements. FFRct values: >0.80: Low likelihood of flow-limitation 0.75-0.80: Borderline likelihood of flow-limitation <0.75: High likelihood of flow-limitation FINDINGS: Left Anterior Descending Artery: there is a Borderline likelihood offlow- limiting stenosis with an FFRct value of 0.78. Left Circumflex Artery: there is a Low likelihood of flow-limitingstenosis with an FFRct value of 0.81. Right Coronary Artery: there is a Borderline likelihood of flow- limitingstenosis with an FFRct value of 0.78. IMPRESSION: The 50-69% stenosis in the left anterior descending coronary artery andright coronary artery has a Borderline likelihood of flow-limitation withan FFRct value of 0.78 for both vessels. RECOMMENDATIONS: Borderline risk FFRct Management recommendations: Consider cardiologyconsultation. Recommendation for anti-ischemic and preventative managementshould be considered as well as risk factor modification. By electronically signing this report, I, the attending physician, alexy I have personally reviewed the images/data for the aboveexamination(s) and agree with the final edited report. Drafted by Dustin Rodriguez on 09/28/2024 9:20 AM Final report signed by Mesfin Hatch MD on 09/28/2024 9:28 AM Jorge Adkins MD IMG CT PROCEDURES Final Resul t documented in this encounter Visit Diagnoses Diagnosis Chest pain, unspecified documented in this encounter Additional Health Concerns Assessment Noted Time A fall risk assessment has been complete d for the patient 03/18/2024 2:36 PM EST A Body Mass Index follow-up plan has been documented for the patient 01/29/2024 3:48 PM EST documented as of this encounter Care Teams Outside Cutter Hand Relationship Specialty Start Date End Date Pcp, [place] [address] PCP - General Family Medicine 09/04/23 documented as of this encounter
--- OUTSIDE RECORDS SUMMARY | 2024-09-27 16:44 | XMS_ITS | Encounter Summary ---
Author Organization [facility] Address [address] [place] [address] Care Team Providers Care Retina Subspecialist Name Role Phone Pcp, No Primary Care Provider Unavailabl e Reason for Referral * Imaging (Routine) - Closed Specialty Diagnoses / Procedures Referred By Drewac t Referred To Contact Radiology Diagnoses Chest pain, unspecified Procedures CT Angio Cardiac FFR Jorge Adkins MD [facility] [place] [address] Phone: tel: fax: Referral ID Status Reason Start Date Expiration Date Visits Re quested Visits Authorized [id number] Closed 09/27/2024 03/29/2026 1 1 Reason for Visit * Imaging (Routine) - Closed Specialty Diagnoses / Procedures Referred By Contac t Referred To Contact Radiology Diagnoses Chest pain, unspecified Procedures CT Angio Cardiac FFR Jorge Adkins MD [address] [place] [address] Phone: tel: fax: Referral ID Status Reason Start Date Expiration Date Visits Re quested Visits Authorized [id number] Closed 09/27/2024 03/29/2026 1 1 Encounter Details Date Type Department Care Team (Latest Contact Info) Description 09/27/2024 4:44 PM EDT - 09/27/2024 11:59 PM EDT Hospital Encounter [facility] [address] [place] [address] Chest pain, unspecified Discharge Disposition: Home or [...] a day. cholecalciferol (Vitamin D-3) 1.25 MG (55291 UT) capsule Take 1 capsule by mouth [...] Description 03/10/2025 10:00 AM EST Office Visit [facility] Multidisciplinary Oncology Clinic [address] [place] [address] Megan Spangler MD [id number] [place] [address] documented as of this encounter Procedures Procedure [...] documented as of this encounter Care Teams Retina Subspecialist Relationship Specialty Start Date End Date Pcp, [place] [address] PCP - General Family Medicine 09/04/23 documented as of this encounter
--- OUTSIDE RECORDS SUMMARY | 2024-10-17 06:29 | XMS_ITS | Encounter Summary ---
Author Organization Healthcare Address [address] [place] [address] Care Team Providers Care Whiting Can Worker Name Role Phone Pcp, No Primary Care Provider Unavailabl e Reason for Visit * Auth/Cert (Routine) Specialty Diagnoses / Procedures Referred By Contac t Referred To Contact Diagnoses Multiple vessel coronary artery disease Multiple vessel coronary artery disease [I25.10] Procedures [place] CATH [place]ACE/CORONARY ANGIO, IMG SUPER/INTERP [place] RIGHT HEART CATH O2 SATURATION & CARDIAC OUTPUT Coronary angiography Right heart catheterization Candelaria Hhan MD [address] [place] [address] Phone: tel: fax: Cardiac Bead Filler [address] [place] [address] Phone: tel: Referral ID Status Reason Start Date Expiration Date Visits Re quested Visits Authorized [id number] 1 1 Encounter Details Date Type Department Care Team (Latest Contact Info) Description 10/17/2024 6:29 AM EDT - 10/17/2024 1:11 PM EDT Hospital Encounter Cardiac Bead Filler [address] [place] [address] Candelaria Hahn MD [address] [place] [address] Multiple vessel coronary artery disease [...] a day. cholecalciferol (Vitamin D-3) 1.25 MG (51147 UT) capsule Take 1 capsule by mouth [...] no heavy work or lifting, driving a 2ND[employer]UREhift car, or vigorous sports. ? Do not [...] been discussed with the patient and/or their account services representative. All questions answered and they agree [...] Insecurity: No Food Insecurity (03/13/2023) Received from [employer] ([place], [place], [place], [place]) Food Insecurity Food run out past 12 months: Not on file Food did not last past 12 months: Not on file Transportation Needs: Not on file Physical Activity: Not on file Stress: Not on file (12/28/2023) Social Connections: Unknown (04/02/2023) Received from [facility] Family and Community Support Help with Day-to-Day Activities: Not on file Lonely or Isolated: Not on file Intimate Partner Violence: Unknown (04/02/2023) Received from [facility] Abuse Screen Unsafe at Home or Work/School: Not on file Feels Threatened by Someone?: Not on file Does Anyone Keep You from Contacting Others or Doint Things Outside the Home?: Not on file Physical Sign of Abuse Present: Not on file Housing Stability: Unknown (04/02/2023) Received from [facility] Housing Stability Current Living Arrangements: Not [...] Description 03/10/2025 10:00 AM EST Office Visit [facility] Multidisciplinary Oncology Clinic [address] [place] [address] Megan Spangler MD [address] [facility] [address] [place] [address] documented as of this encounter Goals Goal [...] and dyslipidemia, as applicable. Candelaria Hahn MD, [facility] Medical Practice Administrator [facility] [place] [employer]ersports instructor Division of Cardiovascular Medicine [facility] Email: [email or web address] Procedure Details After informed consent was obtained, [...] the patient was transferred back to the biology laboratory assistant holding area in good condition. Coronary Findings [...] * POCT creatinine (10/17/2024 7:21 AM EDT) [facility] Creatinine, Point of Care 1.0 0.7 - 1.2 mg/dL 10/17/2024 7:25 AM EDT [facility] POCT eGFR 89 mL/min/1. 73m*2 10/17/2024 7:25 AM EDT [facility] Peel Oven Tender ID Sarahy Yang 10/17/2024 7:25 AM EDT [facility] Device ID [id number] 10/17/2024 7:25 AM EDT [facility] Comment 10/17/2024 7:25 AM EDT [facility] Comment:Testing performed on i-STAT at the point of care. Reported eGFRcr in mL/min/1.73m2 is based the CKD-EPI 2020 equation that does not use a race coefficient. Blood Venous blood specimen / Unknown 10/17/2024 7:21 AM EDT 10/17/2024 7:25 AM EDT us Candelaria Hahn MD LAB POINT OF CARE TE ST DOCKED DEVICE UNSOLICITED RESULTS Final Result [facility] [address] LAB [address] [place] [address] * (ABNORMAL) Basic metabolic panel (10/17/2024 7:12 AM EDT) Glucose, Plasma 116(H) 74 - 99 mg/dL 10/17/2024 8:35 AM EDT [facility] BUN, Plasma 17 7 - 21 mg/dL 10/17/2024 8:35 AM EDT [facility] Creatinine, Plasma 0.92 0.70 - 1.20 mg/dL 10/17/2024 8:35 AM EDT [facility] BUN/Creatinine Ratio 18 10/17/2024 8:35 AM EDT [facility] Sodium, Plasma 137 136 - 145 mmol/L 10/17/2024 8:35 AM EDT [facility] Potassium, Plasma 6.0(H) 3.6 - 4.9 mmol/L 10/17/2024 8:35 AM EDT [facility] Comment:Hemolyzed, result ma y be falsely increased. Chloride, Plasma 105 97 - 107 mmol/L 10/17/2024 8:35 AM EDT [facility] CO2, Plasma 19(L) 22 - 29 mmol/L 10/17/2024 8:35 AM EDT [facility] Anion Gap 13 6 - 16 mmol/L 10/17/2024 8:35 AM EDT [facility] Total Calcium, Plasma 9.3 8.9 - 10.2 mg/dL 10/17/2024 8:35 AM EDT [facility] eGFRcr 98.9 mL/min/1.7 3m*2 10/17/2024 8:35 AM EDT [facility] Comment:Reported eGFRcr in m L/min/1.73m2 is based the CKD-EPI 2020 equation that does not use a race coefficient. Blood Venous blood specimen / Unknown Venipuncture / Unknown 10/17/2024 7:12 AM EDT 10/17/2024 7:28 AM EDT us Candelaria Hahn MD LAB BLOOD ORDERABLES Final Resu lt [facility] [address] [place] [address] * Hemogram (CBC) (10/17/2024 7:12 AM EDT) WBC Count 6.70 3.70 - 10.30 10*3/uL LAB HEMATOLOGY METHOD 10/17/2024 7:39 AM EDT [facility] RBC Count 4.75 4.60 - 6.10 10*6/uL LAB HEMATOLOGY METHOD 10/17/2024 7:39 AM EDT [facility] HGB 14.1 13.7 - 17.5 g/dL LAB HEMATOLOGY METHOD 10/17/2024 7:39 AM EDT [facility] HCT 44.0 40.0 - 51.0 % LAB HEMATOLOGY METHOD 10/17/2024 7:39 AM EDT [facility] Platelet Count 179 155 - 369 10*3/uL LAB HEMATOLOGY METHOD 10/17/2024 7:39 AM EDT [facility] MCV 93 79 - 98 fL LAB HEMATOLOGY METHOD 10/17/2024 7:39 AM EDT [facility] MCH 29.7 26.0 - 32.0 pg LAB HEMATOLOGY METHOD 10/17/2024 7:39 AM EDT [facility] MCHC 32.0 30.7 - 35.5 g/dL LAB HEMATOLOGY METHOD 10/17/2024 7:39 AM EDT [facility] RDW 12.3 11.5 - 14.5 % LAB HEMATOLOGY METHOD 10/17/2024 7:39 AM EDT [facility] MPV 10.3 8.8 - 12.5 fL LAB HEMATOLOGY METHOD 10/17/2024 7:39 AM EDT [facility] nRBC 0.0 <=0.0 per 100 WBCs LAB HEMATOLOGY METHOD 10/17/2024 7:39 AM EDT [facility] Blood Venous blood specimen / Unknown Venipuncture / Unknown 10/17/2024 7:12 AM EDT 10/17/2024 7:28 AM EDT us Candelaria Hahn MD LAB BLOOD ORDERABLES Final Resu lt [facility] [address] [place] [address] documented in this encounter Visit Diagnoses Diagnosis [...] documented as of this encounter Care Teams Whiting Can Worker Relationship Specialty Start Date End Date Pcp, [place] [address] PCP - General Family Medicine 09/04/23 documented as of this encounter
--- OUTSIDE RECORDS SUMMARY | 2024-10-17 08:25 | XMS_ITS | Encounter Summary ---
Author Organization Healthcare Address [address] [place] [address] Care Team Providers Care Pre Billing Specialist Name Role Phone Pcp, No Primary Care Provider Unavailabl e Reason for Visit * Auth/Cert (Routine) Specialty Diagnoses / Procedures Referred By Contac t Referred To Contact Diagnoses Multiple vessel coronary artery disease Multiple vessel coronary artery disease [I25.10] Procedures MS CATH PLACE/CORONARY ANGIO, IMG SUPER/INTERP MS RIGHT HEART CATH O2 SATURATION & CARDIAC OUTPUT Coronary angiography Right heart catheterization Candelaria Hahn MD [address] [place] [address] Phone: tel: fax: Cardiac Solar Sales Representative [address] [place] [address] Phone: tel: Referral ID Status Reason Start Date Expiration Date Visits Re quested Visits Authorized [id number] 1 1 Encounter Details Date Type Department Care Team (Late st Contact Info) Description 10/17/2024 8:25 AM EDT - 10/17/2024 10:40 AM EDT Surgery Cardiac Solar Sales Representative [address] [place] [address] Candelaria Hahn MD [address] [place] [address] Coronary angiography [93088 (CPT )] Surgery Details Date/Time Status Location OR Service Patient Class Case Class Case Type Trauma Case? 10/17/2024 8:25 AM Posted ANEUDY [employer] EMPLOYMENT OPPORTUNITY OFFICER [facility] [employer]OYMENT OPPORTUNITY OFFICER 04 [facility] Outpatient Surgery E-Elect nely Panel 1 Procedure LRB Anes Op Region Wound Class Comments Coronary angiography N/A Left heart catheterization N/A Surgeon Surgeon Role Service Panel Marc Callejas MD Fellow Cardiovascular 1 Fernando Haley DO Fellow Cardiovascular 1 Candelaria Hahn MD Primary Cardiovascular 1 Violet Lr MD Fellow Cardiovascular 1 documented in this encounter Social History Tobacco Use Types Packs/Day Years [...] Suicidal Behavior (Lifetime) No 10/17/2024 7:10 AM EDSondra Aragon RN documented as of this encounter Medications at Time of Discharge aspirin 81 MG chewable tablet Chew 1 tablet daily. aspirin 81 mg tablet 360 tablet 10/18/2024 busPIRone (Buspar) 10 MG tablet Take 1 tablet by mouth 2 times a day. cholecalciferol (Vitamin D-3) 1.25 MG (83356 UT) capsule Take 1 capsule by mouth [...] escorted to car by wheelchair. * Mikala NealFHIR - Kathleen Lazcano RN - 10/17/2024 12:28 [...] no heavy work or lifting, driving a standardshift car, or vigorous sports. ? Do not [...] been discussed with the patient and/or their member service representative. All questions answered and they [...] HLD, HTN, who presented to [facility] on 10/16/24 for elective right [...] Insecurity: No Food Insecurity (03/13/2023) Received from [employer] ([place], [place], [place], [place]) Food Insecurity Food run out past 12 months: Not on file Food did not last past 12 months: Not on file Transportation Needs: Not on file Physical Activity: Not on file Stress: Not on file (12/28/2023) Social Connections: Unknown (04/02/2023) Received from [facility] Family and Community Support Help with Day-to-Day Activities: Not on file Lonely or Isolated: Not on file Intimate Partner Violence: Unknown (04/02/2023) Received from [facility] Abuse Screen Unsafe at Home or Work/School: Not on file Feels Threatened by Someone?: Not on file Does Anyone Keep You from Contacting Others or Doint Things Outside the Home?: Not on file Physical Sign of Abuse Present: Not on file Housing Stability: Unknown (04/02/2023) Received from [facility] Housing Stability Current Living Arrangements: Not on [...] D.Bili ?? The ASCVD Risk score (Octavio DIETZ, et al., 2019) failed to calculate for the following reasons: Cannot find a previous HDL lab Cannot find a previous total cholesterol lab ECG: No electrocardiogram results found for the past 3 days. Assessment and Plan Quirino Gonzáles is a 54 y.o. male with past medical history significant for CAD, HTN, HLD, who presented to [facility] on 10/16/24 for elective coronary [...] AM EST Office Visit [facility] Multidisciplinary Oncology Clinic [address] [place] [address] Megan Spangler MD [address] [facility] [address] [place] [address] documented as of this encounter Goals Goal Patient Goal Type Associated Problems Recent Progress Patient-Stated? Author Autogenerat ed Goal Care Plan Autogenerated Problem No Ramesh Díaz documented as of this encounter Procedures Procedure [...] and dyslipidemia, as applicable. Candelaria Hahn MD, [facility], [facility] Rehab Tech [facility] [place] Repairer Handtoolsjewish thought professor Division of Cardiovascular Medicine [facility] Email: [email or web address] Procedure Details After informed consent was [...] the patient was transferred back to the construction craft laborer holding area in good condition. Coronary [...] * POCT creatinine (10/17/2024 7:21 AM EDT) Pathologist [facility] Creatinine, Point of Care 1.0 0.7 - 1.2 mg/dL 10/17/2024 7:25 AM EDT [facility] POCT eGFR 89 mL/min/1. 73m*2 10/17/2024 7:25 AM EDT [facility] Watchstander ID Sarahy Yang 10/17/2024 7:25 AM EDT HEALTHCARE LAB Device ID [id number] 10/17/2024 7:25 AM EDT [facility] Comment 10/17/2024 7:25 AM EDT [facility] Comment:Testing performed on i-STAT at the point of care. Reported eGFRcr in mL/min/1.73m2 is based the CKD-EPI 2020 equation that does not use a race coefficient. Blood Venous blood specimen / Unknown 10/17/2024 7:21 AM EDT 10/17/2024 7:25 AM EDT us Candelaria Hahn MD LAB POINT OF CARE TE ST DOCKED DEVICE UNSOLICITED RESULTS Final Result [facility] [address] [place] [address] * (ABNORMAL) Basic metabolic panel (10/17/2024 7:12 AM EDT) Glucose, Plasma 116(H) 74 - 99 mg/dL 10/17/2024 8:35 AM EDT [facility] BUN, Plasma 17 7 - 21 mg/dL 10/17/2024 8:35 AM EDT [facility] Creatinine, Plasma 0.92 0.70 - 1.20 mg/dL 10/17/2024 8:35 AM EDT [facility] BUN/Creatinine Ratio 18 10/17/2024 8:35 AM EDT [facility] Sodium, Plasma 137 136 - 145 mmol/L 10/17/2024 8:35 AM EDT [facility] Potassium, Plasma 6.0(H) 3.6 - 4.9 mmol/L 10/17/2024 8:35 AM EDT [facility] Comment:Hemolyzed, result ma y be falsely increased. Chloride, Plasma 105 97 - 107 mmol/L 10/17/2024 8:35 AM EDT [facility] CO2, Plasma 19(L) 22 - 29 mmol/L 10/17/2024 8:35 AM EDT [facility] Anion Gap 13 6 - 16 mmol/L 10/17/2024 8:35 AM EDT [facility] Total Calcium, Plasma 9.3 8.9 - 10.2 mg/dL 10/17/2024 8:35 AM EDT [facility] eGFRcr 98.9 mL/min/1.7 3m*2 10/17/2024 8:35 AM EDT [facility] Comment:Reported eGFRcr in m L/min/1.73m2 is based the CKD-EPI 2020 equation that does not use a race coefficient. Blood Venous blood specimen / Unknown Venipuncture / Unknown 10/17/2024 7:12 AM EDT 10/17/2024 7:28 AM EDT us Candelaria Hahn MD LAB BLOOD ORDERABLES Final Resu lt [facility] [address] [place] [address] * Hemogram (CBC) (10/17/2024 7:12 AM EDT) WBC Count 6.70 3.70 - 10.30 10*3/uL LAB HEMATOLOGY METHOD 10/17/2024 7:39 AM EDT [facility] RBC Count 4.75 4.60 - 6.10 10*6/uL LAB HEMATOLOGY METHOD 10/17/2024 7:39 AM EDT [facility] HGB 14.1 13.7 - 17.5 g/dL LAB HEMATOLOGY METHOD 10/17/2024 7:39 AM EDT [facility] HCT 44.0 40.0 - 51.0 % LAB HEMATOLOGY METHOD 10/17/2024 7:39 AM EDT [facility] Platelet Count 179 155 - 369 10*3/uL LAB HEMATOLOGY METHOD 10/17/2024 7:39 AM EDT [facility] MCV 93 79 - 98 fL LAB HEMATOLOGY METHOD 10/17/2024 7:39 AM EDT [facility] MCH 29.7 26.0 - 32.0 pg LAB HEMATOLOGY METHOD 10/17/2024 7:39 AM EDT [facility] MCHC 32.0 30.7 - 35.5 g/dL LAB HEMATOLOGY METHOD 10/17/2024 7:39 AM EDT [facility] RDW 12.3 11.5 - 14.5 % LAB HEMATOLOGY METHOD 10/17/2024 7:39 AM EDT [facility] MPV 10.3 8.8 - 12.5 fL LAB HEMATOLOGY METHOD 10/17/2024 7:39 AM EDT [facility] nRBC 0.0 <=0.0 per 100 WBCs LAB HEMATOLOGY METHOD 10/17/2024 7:39 AM EDT [facility] Blood Venous blood specimen / Unknown Venipuncture / Unknown 10/17/2024 7:12 AM EDT 10/17/2024 7:28 AM EDT us Candelaria Hahn MD LAB BLOOD ORDERABLES Final Resu lt [facility] [address] [place] [address] documented in this encounter Visit Diagnoses Diagnosis [...] documented as of this encounter Care Teams Pre Billing Specialist Relationship Specialty Start Date End Date Pcp, Machelle [address] [place] [address] PCP - General Family Medicine 09/04/23 documented as of this encounter
--- OUTSIDE RECORDS SUMMARY | 2024-11-01 13:48 | XMS_ITS | Encounter Summary ---
Author Organization Healthcare Address [address] [place] [address] Care Team Providers Care Yellow Pages Space Salesperson Name Role Phone Pcp, No Primary Care Provider Unavailabl e Encounter Details Date Type Department Care Team (Late Contact Info) Description 09/20/2024 Telephone [facility] Radiology [address] [place] [address] Harmony Muñoz, RN [facility]-DIAGNOSTIC RADIOLOGY Social History [...] Office Visit [facility] Multidisciplinary Oncology Clinic [address] [place] [address] Megan Spangler MD [address] [facility] [address] [place] [address] documented as of this encounter Visit Diagnoses Not on filedocumented in this encounter Additional Health Concerns Assessment Noted Time A fall risk assessment has been complete d for the patient 03/18/2024 2:36 PM EST A Body Mass Index follow-up plan has been documented for the patient 01/29/2024 3:48 PM EST documented as of this encounter Care Teams Yellow Pages Space Salesperson Relationship Specialty Start Date End Date Pcp, No [address] [place] [address] PCP - General Family Medicine 09/04/23 documented as of this encounter
--- OUTSIDE RECORDS SUMMARY | 2024-11-01 13:48 | XMS_ITS | Clinical Summary ---
Author Organization [facility] Address [address] [place] [address] Phone [email or web address] Team Providers Care Editorial Manager Name Role Phone Jem Guillermo Primary Care Provider [phone] Allergies Active Allergy Reactions Criticality Noted Date [...] each day. 1 Active D3-50 1.25 MG (58097 UT) capsule TAKE 1 CAPSULE BY MOUTH [...] 2) 2020 Covid-19 Immunization (4 - season) 2024 02/14/2021, 06/06/2020, 05/09/2020 Influenza Immunization (#1) 10/24/202411/24, [...] topic Insurance L[employer] IN [employer]AY [address] [facility] [id number] [place] [address] Care Teams Editorial Manager Relationship Specialty Start Date End Date Guillermo Parish [address] [address] PCP - General Family Medicine 10/24/19
--- OUTSIDE RECORDS SUMMARY | 2024-11-01 13:48 | XMS_ITS | Encounter Summary ---
Author Organization Healthcare Address [address] [place] [address] Care Team Providers Care Crusher And Blender Operator Name Role Phone Pcp, No Primary [...] Description 03/10/2025 10:00 AM EST Office Visit [facility] Multidisciplinary Oncology Clinic [address] [place] [address] Megan Spangler MD [id number] [place] [address] documented as of this encounter Visit Diagnoses Not on filedocumented in this encounter Additional Health Concerns Assessment Noted Time A fall risk assessment has been complete d for the patient 03/18/2024 2:36 PM EST A Body Mass Index follow-up plan has been documented for the patient 01/29/2024 3:48 PM EST documented as of this encounter Care Teams Crusher And Blender Operator Relationship Specialty Start Date End Date Pcp, No [address] [place] [address] PCP - General Family Medicine 09/04/23 documented as of this encounter
--- NOTE | 2024-11-01 13:49 | XR_ITS ---
FINAL REPORT CLINICAL HISTORY: righ hand fx COMPARISON: 10/18/2024 FINDINGS: RIGHT HAND Three views demonstrate no significant change in fracture along the dorsal base of the distal phalanx of the second finger. No other fracture is identified. The visualized joint spaces are normally aligned. The soft tissues are unremarkable. IMPRESSION: No significant change in fracture along the dorsal base of the distal phalanx of the second finger. Reviewed, Interpreted and Dictated by Claudia Boles MD Transcribed by Rita Wheeler Authenticated and [facility][1]
--- OUTSIDE RECORDS SUMMARY | 2024-11-01 13:49 | XMS_ITS | Encounter Summary ---
Author Organization Healthcare Address [address] [place] [address] Care Team Providers Care Medical Technicians Name Role Phone Pcp, No Primary Care [...] Description 03/10/2025 10:00 AM EST Office Visit [facility] Multidisciplinary Oncology Clinic [address] [place] [address] Megan Spangler MD [address] [facility] [address] [place] [address] documented as of this encounter Goals Goal [...] documented as of this encounter Care Teams Medical Technicians Relationship Specialty Start Date End Date Pcp, [place] [address] PCP - General Family Medicine 09/04/23 documented as of this encounter
--- OUTSIDE RECORDS SUMMARY | 2024-11-01 13:49 | XMS_ITS | Encounter Summary ---
Author Organization [facility] Address [address] [place] [address] Care Team Providers Care Service Desk Specialist Name Role Phone Pcp, No Primary [...] Description 03/10/2025 10:00 AM EST Office Visit [facility] Multidisciplinary Oncology Clinic [address] [place] [address] Megan Spangler MD [address] [place] [address] documented as of this encounter Goals Goal [...] documented as of this encounter Care Teams Service Desk Specialist Relationship Specialty Start Date End Date Pcp, No [address] [place] [address] PCP - General Family Medicine 09/04/23 documented as of this encounter
--- OUTSIDE RECORDS SUMMARY | 2024-11-01 13:49 | XMS_ITS | Clinical Summary ---
Author Organization Healthcare Address [address] [place] [address] Care Team Providers Care Trial Examiner Name Role Phone Pcp, No Primary [...] daily. Active cholecalciferol (Vitamin D-3) 1.25 MG (11864 UT) capsule Take 1 capsule by mouth [...] - 10/17/2024 10:40 AM EDT Surgery Cardiac Diesel Instructor [address] [place] [address] Candelaria Hahn MD Coronary angiography [50632 (CPT )] 10/17/2024 6:29 AM EDT - 10/17/2024 1:11 PM EDT Hospital Encounter Cardiac Diesel Instructor [address] [place] [address] Candelaria Hahn MD Multiple vessel coronary artery disease Discharge Disposition: Home or Self Care 10/17/2024 Travel 10/10/2024 Travel 09/27/2024 4:44 PM EDT - 09/27/2024 11:59 PM EDT Hospital Encounter [facility] [address] [place] [phone] Chest pain, unspecified Discharge Disposition: Home or Self Care 09/27/2024 1:44 PM EDT - 09/27/2024 4:43 PM EDT Hospital Encounter [facility] [address] [place] [address] Chest pain, unspecified Discharge Disposition: Home or Self Care 09/27/2024 12:22 PM EDT - 09/27/2024 1:43 PM EDT Hospital Encounter [facility] [address] [place] [address] Mesfin Jacobsen RN Chest pain, unspecified Discharge Disposition: Home or Self Care 09/27/2024 Travel 09/20/2024 Travel 09/20/2024 Telephone [facility] [address] [place] [phone] Harmony Muñoz, RN from Last 3 Months [...] Office Visit [facility] Multidisciplinary Oncology Clinic [address] [place] [address] Megan Spangler MD [address] [facility] [address] [place] [address] Health Maintenance Due Date Last Done Comments [...] 2020 UKY-Zoster Vaccines (1 of 2) 2020 KVM-[id number]-54 Vaccine (4 - 2023- season) 2023 02/14/2021, [...] and dyslipidemia, as applicable. Candelaria Hahn MD, [facility], [facility] Icing Maker [facility] [place] [employer] Laminatormarketing traffic coordinator Division of Cardiovascular Medicine [facility] Email: [email or web address] Procedure Details After informed consent [...] the patient was transferred back to the experimental machining lab manager holding area in good condition. Coronary [...] * POCT creatinine (10/17/2024 7:21 AM EDT) [facility] Creatinine, Point of Care 1.0 0.7 - 1.2 mg/dL 10/17/2024 7:25 AM EDT [facility] POCT eGFR 89 mL/min/1. 73m*2 10/17/2024 7:25 AM EDT [facility] Lawn And Garden Technician ID Sarahy Yang 10/17/2024 7:25 AM EDT [facility] Device ID [id number] 10/17/2024 7:25 AM EDT [facility] Comment 10/17/2024 7:25 AM EDT [facility] Comment:Testing performed on i-STAT at the point of care. Reported eGFRcr in mL/min/1.73m2 is based the CKD-EPI 2020 equation that does not use a race coefficient. Blood Venous blood specimen / Unknown 10/17/2024 7:21 AM EDT 10/17/2024 7:25 AM EDT us Candelaria Hahn MD LAB POINT OF CARE TE ST DOCKED DEVICE UNSOLICITED RESULTS Final Result [facility] [address] LAB [address] [place] [address] * Hemogram (CBC) (10/17/2024 7:12 AM EDT) WBC Count 6.70 3.70 - 10.30 10*3/uL LAB HEMATOLOGY METHOD 10/17/2024 7:39 AM EDT [facility] RBC Count 4.75 4.60 - 6.10 10*6/uL LAB HEMATOLOGY METHOD 10/17/2024 7:39 AM EDT [facility] HGB 14.1 13.7 - 17.5 g/dL LAB HEMATOLOGY METHOD 10/17/2024 7:39 AM EDT [facility] HCT 44.0 40.0 - 51.0 % LAB HEMATOLOGY METHOD 10/17/2024 7:39 AM EDT [facility] Platelet Count 179 155 - 369 10*3/uL LAB HEMATOLOGY METHOD 10/17/2024 7:39 AM EDT [facility] MCV 93 79 - 98 fL LAB HEMATOLOGY METHOD 10/17/2024 7:39 AM EDT [facility] MCH 29.7 26.0 - 32.0 pg LAB HEMATOLOGY METHOD 10/17/2024 7:39 AM EDT [facility] MCHC 32.0 30.7 - 35.5 g/dL LAB HEMATOLOGY METHOD 10/17/2024 7:39 AM EDT [facility] RDW 12.3 11.5 - 14.5 % LAB HEMATOLOGY METHOD 10/17/2024 7:39 AM EDT [facility] MPV 10.3 8.8 - 12.5 fL LAB HEMATOLOGY METHOD 10/17/2024 7:39 AM EDT [facility] nRBC 0.0 <=0.0 per 100 WBCs LAB HEMATOLOGY METHOD 10/17/2024 7:39 AM EDT [facility] Blood Venous blood specimen / Unknown Venipuncture / Unknown 10/17/2024 7:12 AM EDT 10/17/2024 7:28 AM EDT us Candelaria Hahn MD LAB BLOOD ORDERABLES Final Resu lt [facility] [address] [place] [address] * (ABNORMAL) Basic metabolic panel (10/17/2024 7:12 AM EDT) Glucose, Plasma 116(H) 74 - 99 mg/dL 10/17/2024 8:35 AM EDT [facility] BUN, Plasma 17 7 - 21 mg/dL 10/17/2024 8:35 AM EDT [facility] Creatinine, Plasma 0.92 0.70 - 1.20 mg/dL 10/17/2024 8:35 AM EDT [facility] BUN/Creatinine Ratio 18 10/17/2024 8:35 AM EDT [facility] Sodium, Plasma 137 136 - 145 mmol/L 10/17/2024 8:35 AM EDT [facility] Potassium, Plasma 6.0(H) 3.6 - 4.9 mmol/L 10/17/2024 8:35 AM EDT [facility] Comment:Hemolyzed, result ma y be falsely increased. Chloride, Plasma 105 97 - 107 mmol/L 10/17/2024 8:35 AM EDT [facility] CO2, Plasma 19(L) 22 - 29 mmol/L 10/17/2024 8:35 AM EDT [facility] Anion Gap 13 6 - 16 mmol/L 10/17/2024 8:35 AM EDT [facility] Total Calcium, Plasma 9.3 8.9 - 10.2 mg/dL 10/17/2024 8:35 AM EDT [facility] eGFRcr 98.9 mL/min/1.7 3m*2 10/17/2024 8:35 AM EDT [facility] Comment:Reported eGFRcr in m L/min/1.73m2 is based the CKD-EPI 2020 equation that does not use a race coefficient. Blood Venous blood specimen / Unknown Venipuncture / Unknown 10/17/2024 7:12 AM EDT 10/17/2024 7:28 AM EDT us Candelaria Hahn MD LAB BLOOD ORDERABLES Final Resu lt [facility] [address] [place] [address] * CT Angio Cardiac FFR (09/27/2024 4:44 [...] Date Diagnosed Date Autogenerated Problem 10/07/2024 Insurance [facility] Advance Directives * Full Code (Latest Code Status on File) Date Activated Date Inactivated Comments 10/17/2024 10:01 AM 10/17/2024 3:16 PM Question Answer Comments I have reviewed the capacity from the link above and, if needed, have updated to appropriate status: Yes Care Teams Trial Examiner Relationship Specialty Start Date End Date Pcp, No [address] [place] [address] PCP - General Family Medicine 09/04/23
--- OUTSIDE RECORDS SUMMARY | 2024-11-01 13:49 | XMS_ITS | Encounter Summary ---
Author Organization Healthcare Address [address] [place] [address] Care Team Providers Care Art Museum Aide Name Role Phone Pcp, No Primary Care [...] Description 03/10/2025 10:00 AM EST Office Visit [facility] Multidisciplinary Oncology Clinic [address] [place] [address] Megan Spangler MD [phone] [place] [address] documented as of this encounter Visit Diagnoses Not on filedocumented in this encounter Additional Health Concerns Assessment Noted Time A fall risk assessment has been complete d for the patient 03/18/2024 2:36 PM EST A Body Mass Index follow-up plan has been documented for the patient 01/29/2024 3:48 PM EST documented as of this encounter Care Teams Art Museum Aide Relationship Specialty Start Date End Date Pcp, No [address] [place] [address] PCP - General Family Medicine 09/04/23 documented as of this encounter
--- OUTSIDE RECORDS SUMMARY | 2024-11-01 13:49 | XMS_ITS | Clinical Summary ---
Author Organization [facility] Address [address] [place] [address] Care Team Providers Care Systems Support Engineer Name Role Phone Keri Mckinnon APRN Primary [...] of 2) 2020 COVID-19 Vaccine (4 - 2024-2 6 season) 2024 02/14/2021, 06/06/2020, 05/09/2020 INFLUENZA VACCINE 11/23/2024 12/12/2022, , 12/09/2018, Additional history exists Insurance Care Teams Systems Support Engineer Relationship Specialty Start Date End Date Keri Mckinnon APRN [address] [place] [address] PCP - General Nurse Practitioner 04/02/23
== END 2024-11-01 23:59 | disposition home or self-care (01) ==
LOC: RAD 13:44
PROVIDERS: PCP Family Medicine; Visit Provider Physician Assistant
DX: S62.630A Displaced fracture of distal phalanx of right index finger, initial encounter for closed fracture (principal); M20.019 Mallet finger of unspecified finger(s)
CPT/HCPCS: 73130

== ENCOUNTER 2024-11-08 09:38 | Outpatient (CLI) | payer BC, SELFPAY ==
--- OUTSIDE RECORDS SUMMARY | 2024-09-27 12:22 | XMS_ITS | Encounter Summary ---
Author Organization [facility] Address [address] [place] [address] Care Team Providers Care Food Porter Name Role Phone Pcp, No Primary Care Provider Unavailabl e Reason for Referral * Imaging (Routine) - Closed Specialty Diagnoses / Procedures Referred By Contac t Referred To Contact Radiology Diagnoses Chest pain, unspecified Procedures CT Angio Cardiac Coronary Arteries Jorge Adkins MD [address] [place] [address] Phone: tel: fax: Referral ID Status Reason Start Date Expiration Date Visits Re quested Visits Authorized [id number] Closed 08/25/2024 02/24/2026 1 1 Reason for Visit * Imaging (Routine) - Closed Specialty Diagnoses / Procedures Referred By Contac t Referred To Contact Radiology Diagnoses Chest pain, unspecified Procedures CT Angio Cardiac Coronary Arteries Jorge Adkins MD [address] [place] [address] Phone: tel: fax: Referral ID Status Reason Start Date Expiration Date Visits Re quested Visits Authorized [id number] Closed 08/25/2024 02/24/2026 1 1 Encounter Details Date Type Department Care Team (Latest Contact Info) Description 09/27/2024 12:22 PM EDT - 09/27/2024 1:43 PM EDT Hospital Encounter [facility] Radiology [address] [place] [address] Mesfin Parker RN CH-PAV A 5 T2 [...] a day. cholecalciferol (Vitamin D-3) 1.25 MG (71760 UT) capsule Take 1 capsule by mouth [...] tablet Take 1 tablet by mouth daily. simvastatin (Zocor) 40 MG tablet Take 1 tablet by mouth every evening. 10/17/2024 ibuprofen 800 MG tablet TAKE 1 TABLET BY MOUTH THREE TIMES DAILY NEEDED FOR PAIN FOR 7 DAYS 01/31/2024 10/17/2024 documented as of this encounter Miscellaneous Notes * Mesfin Hernandez, RN - 09/27/2024 12:51 PM EDT Images from the original note were not included. [id number] Understanding coronary computed tomography angiography (CCTA) Coronary [...] site Last Reviewed Date: 2023 00:00:00 ?? [id number] The [employer]. All rights reserved. This information is not [...] Description 03/10/2025 10:00 AM EST Office Visit [facility] Multidisciplinary Oncology Clinic [address] [place] [address] Megan Spangler MD [address] [place] [address] documented as of this encounter Procedures Procedure [...] source 192 MDCT scanner (Somatom Force, Siemens [employer] Systems)was used for data acquisition. A non-contrast [...] documented as of this encounter Care Teams Food Porter Relationship Specialty Start Date End Date Pcp, [place] [address] PCP - General Family Medicine 09/04/23 documented as of this encounter
--- OUTSIDE RECORDS SUMMARY | 2024-09-27 13:44 | XMS_ITS | Encounter Summary ---
Author Organization [facility] Address [address] [place] [address] Care Team Providers Care Sheet Rock Installation Helper Name Role Phone Pcp, No Primary Care Provider Unavailabl e Reason for Referral * Imaging (Routine) - Closed Specialty Diagnoses / Procedures Referred By Contac t Referred To Contact Radiology Diagnoses Chest pain, unspecified Procedures CT Angio Cardiac Plaque Analysis Jorge Adkins MD [address] [place] [address] Phone: tel: fax: Referral ID Status Reason Start Date Expiration Date Visits Re quested Visits Authorized [id number] Closed 09/27/2024 03/29/2026 1 1 Reason for Visit * Imaging (Routine) - Closed Specialty Diagnoses / Procedures Referred By Contac t Referred To Contact Radiology Diagnoses Chest pain, unspecified Procedures CT Angio Cardiac Plaque Analysis Jorge Adkins MD [address] [place] [address] Phone: tel: fax: Referral ID Status Reason Start Date Expiration Date Visits Re quested Visits Authorized [id number] Closed 09/27/2024 03/29/2026 1 1 Encounter Details Date Type Department Care Team (Latest Contact Info) Description 09/27/2024 1:44 PM EDT - 09/27/2024 4:43 PM EDT Hospital Encounter [facility] Radiology [address] [place] [address] Chest pain, unspecified Discharge Disposition: Home or [...] a day. cholecalciferol (Vitamin D-3) 1.25 MG (69127 UT) capsule Take 1 capsule by mouth [...] 01/31/2024 10/17/2024 documented as of this encounter Plan of Treatment Upcoming Encounters Date Type Department Care Team (Late st Contact Info) Description 03/10/2025 10:00 AM EST Office Visit [facility] Multidisciplinary Oncology Clinic [address] [place] [address] Megan Spangler MD [id number] [place] [address] documented as of this encounter Procedures Procedure [...] FFRct value of 0.78. Procedure Note Mesfin Hathc MD - 09/28/2024 FFRct Coronary Analysis: TECHNIQUE: [...] documented as of this encounter Care Teams Sheet Rock Installation Helper Relationship Specialty Start Date End Date Pcp, [place] [address] PCP - General Family Medicine 09/04/23 documented as of this encounter
--- OUTSIDE RECORDS SUMMARY | 2024-09-27 16:44 | XMS_ITS | Encounter Summary ---
Author Organization [facility] Address [address] [place] [address] Care Team Providers Care Elementary Math Tutor Name Role Phone Pcp, No Primary Care Provider Unavailabl e Reason for Referral * Imaging (Routine) - Closed Specialty Diagnoses / Procedures Referred By Drewac t Referred To Contact Radiology Diagnoses Chest pain, unspecified Procedures CT Angio Cardiac FFR Jorge Adkins MD [facility] [place] [address] Phone: tel: fax: Referral ID Status Reason Start Date Expiration Date Visits Re quested Visits Authorized [id number] Closed 09/27/2024 03/29/2026 1 1 Reason for Visit * Imaging (Routine) - Closed Specialty Diagnoses / Procedures Referred By Contac t Referred To Contact Radiology Diagnoses Chest pain, unspecified Procedures CT Angio Cardiac FFR Jorge Adkins MD [address] [place] [address] Phone: tel: fax: Referral ID Status Reason Start Date Expiration Date Visits Re quested Visits Authorized [id number] Closed 09/27/2024 03/29/2026 1 1 Encounter Details Date Type Department Care Team (Latest Contact Info) Description 09/27/2024 4:44 PM EDT - 09/27/2024 11:59 PM EDT Hospital Encounter [facility] [address] [place] [address] Chest pain, unspecified Discharge Disposition: Home or [...] a day. cholecalciferol (Vitamin D-3) 1.25 MG (77316 UT) capsule Take 1 capsule by mouth [...] Description 03/10/2025 10:00 AM EST Office Visit [facility] [address] [place] [address] Megan Spangler MD [id number] [place] [address] documented as of this encounter Procedures Procedure [...] documented as of this encounter Care Teams Elementary Math Tutor Relationship Specialty Start Date End Date Pcp, [place] [address] PCP - General Family Medicine 09/04/23 documented as of this encounter
--- OUTSIDE RECORDS SUMMARY | 2024-10-17 06:29 | XMS_ITS | Encounter Summary ---
Author Organization Healthcare Address [address] [place] [address] Care Team Providers Care Conference Reservationist Name Role Phone Pcp, No Primary Care Provider Unavailabl e Reason for Visit * Auth/Cert (Routine) Specialty Diagnoses / Procedures Referred By Contac t Referred To Contact Diagnoses Multiple vessel coronary artery disease Multiple vessel coronary artery disease [I25.10] Procedures NC CATH PLACE/CORONARY ANGIO, IMG SUPER/INTERP NC RIGHT HEART CATH O2 SATURATION & CARDIAC OUTPUT Coronary angiography Right heart catheterization Candelaria Hahn MD [address] [place] [address] Phone: tel: fax: Cardiac Aircraft Structural Repair Mechanic [address] [place] [address] Phone: tel: Referral ID Status Reason Start Date Expiration Date Visits Re quested Visits Authorized [id number] 1 1 Encounter Details Date Type Department Care Team (Latest Contact Info) Description 10/17/2024 6:29 AM EDT - 10/17/2024 1:11 PM EDT Hospital Encounter Cardiac Aircraft Structural Repair Mechanic [address] [place] [address] Candelaria Hahn MD [address] [place] [address] Multiple vessel coronary artery disease [...] a day. cholecalciferol (Vitamin D-3) 1.25 MG (05427 UT) capsule Take 1 capsule by mouth [...] no heavy work or lifting, driving a Quaerohift car, or vigorous sports. ? Do not [...] been discussed with the patient and/or their congressional representative. All questions answered and they agree to proceed. Shaq Haley DO Department of Cardiovascular Disease Fellow, PGY-4 * H&P - Fernando Haley DO - 10/16/2024 8:56 PM EDT Images from the original note were not included. History and Physical History of Present Illness Quirino Gonzáles is a 54 y.o. male with past medical history significant for CAD, HLD, HTN, who presented to [facility] on 10/16/24 for elective right heart [...] Insecurity: No Food Insecurity (03/13/2023) Received from [employer] ([place], [place], [place], [place]) Food Insecurity Food run out past 12 months: Not on file Food did not last past 12 months: Not on file Transportation Needs: Not on file Physical Activity: Not on file Stress: Not on file (12/28/2023) Social Connections: Unknown (04/02/2023) Received from [facility] Family and Community Support Help with Day-to-Day Activities: Not on file Lonely or Isolated: Not on file Intimate Partner Violence: Unknown (04/02/2023) Received from [facility] Abuse Screen Unsafe at Home or Work/School: Not on file Feels Threatened by Someone?: Not on file Does Anyone Keep You from Contacting Others or Doint Things Outside the Home?: Not on file Physical Sign of Abuse Present: Not on file Housing Stability: Unknown (04/02/2023) Received from [facility] Housing Stability Current Living Arrangements: Not [...] for CAD, HTN, HLD, who presented to [facility] on 10/16/24 for elective coronary angiography [...] Description 03/10/2025 10:00 AM EST Office Visit [facility] Multidisciplinary Oncology Clinic [address] [place] [address] Megan Spangler MD [address] [facility] [address] [place] [address] documented as of this encounter Procedures Procedure [...] and dyslipidemia, as applicable. Candelaria Hahn MD, [facility], [facility] Toy Designer [facility] [place] [employer] Shootermetal model builder Division of Cardiovascular Medicine [facility] Email: [email or web address] Procedure Details After informed consent was obtained, [...] the patient was transferred back to the microbiology laboratory manager holding area in good condition. Coronary Findings [...] * POCT creatinine (10/17/2024 7:21 AM EDT) [facility] Creatinine, Point of Care 1.0 0.7 - 1.2 mg/dL 10/17/2024 7:25 AM EDT [facility] LAB POCT eGFR 89 mL/min/1. 73m*2 10/17/2024 7:25 AM EDT [facility] Hplc Chemist ID Sarahy Yang A 10/17/2024 7:25 AM EDT [employer] LAB Device ID [id number] 10/17/2024 7:25 AM EDT [facility] Comment 10/17/2024 7:25 AM EDT [facility] Comment:Testing performed on i-STAT at the point of care. Reported eGFRcr in mL/min/1.73m2 is based the CKD-EPI 2020 equation that does not use a race coefficient. Blood Venous blood specimen / Unknown 10/17/2024 7:21 AM EDT 10/17/2024 7:25 AM EDT Candelaria Hahn MD LAB POINT OF CARE TE ST DOCKED DEVICE UNSOLICITED RESULTS Final Result [facility] [address] [place], [place] [id number] [place] [address] LAB [address] [place] [address] * (ABNORMAL) Basic metabolic panel (10/17/2024 7:12 AM EDT) Glucose, Plasma 116(H) 74 - 99 mg/dL 10/17/2024 8:35 AM EDT [facility] BUN, Plasma 17 7 - 21 mg/dL 10/17/2024 8:35 AM EDT [facility] Creatinine, Plasma 0.92 0.70 - 1.20 mg/dL 10/17/2024 8:35 AM EDT [facility] BUN/Creatinine Ratio 18 10/17/2024 8:35 AM EDT [facility] Sodium, Plasma 137 136 - 145 mmol/L 10/17/2024 8:35 AM EDT [facility] Potassium, Plasma 6.0(H) 3.6 - 4.9 mmol/L 10/17/2024 8:35 AM EDT [facility] Comment:Hemolyzed, result ma y be falsely increased. Chloride, Plasma 105 97 - 107 mmol/L 10/17/2024 8:35 AM EDT [facility] CO2, Plasma 19(L) 22 - 29 mmol/L 10/17/2024 8:35 AM EDT [facility] Anion Gap 13 6 - 16 mmol/L 10/17/2024 8:35 AM EDT [facility] Total Calcium, Plasma 9.3 8.9 - 10.2 mg/dL 10/17/2024 8:35 AM EDT [facility] eGFRcr 98.9 mL/min/1.7 3m*2 10/17/2024 8:35 AM EDT [facility] Comment:Reported eGFRcr in m L/min/1.73m2 is based the CKD-EPI 2020 equation that does not use a race coefficient. Blood Venous blood specimen / Unknown Venipuncture / Unknown 10/17/2024 7:12 AM EDT 10/17/2024 7:28 AM EDT us Candelaria Hahn MD LAB BLOOD ORDERABLES Final Resu lt [facility] [address] [place] [address] * Hemogram (CBC) (10/17/2024 7:12 AM EDT) WBC Count 6.70 3.70 - 10.30 10*3/uL LAB HEMATOLOGY METHOD 10/17/2024 7:39 AM EDT [facility] RBC Count 4.75 4.60 - 6.10 10*6/uL LAB HEMATOLOGY METHOD 10/17/2024 7:39 AM EDT [facility] HGB 14.1 13.7 - 17.5 g/dL LAB HEMATOLOGY METHOD 10/17/2024 7:39 AM EDT [facility] HCT 44.0 40.0 - 51.0 % LAB HEMATOLOGY METHOD 10/17/2024 7:39 AM EDT [facility] Platelet Count 179 155 - 369 10*3/uL LAB HEMATOLOGY METHOD 10/17/2024 7:39 AM EDT [facility] MCV 93 79 - 98 fL LAB HEMATOLOGY METHOD 10/17/2024 7:39 AM EDT [facility] MCH 29.7 26.0 - 32.0 pg LAB HEMATOLOGY METHOD 10/17/2024 7:39 AM EDT [facility] MCHC 32.0 30.7 - 35.5 g/dL LAB HEMATOLOGY METHOD 10/17/2024 7:39 AM EDT [facility] RDW 12.3 11.5 - 14.5 % LAB HEMATOLOGY METHOD 10/17/2024 7:39 AM EDT [facility] MPV 10.3 8.8 - 12.5 fL LAB HEMATOLOGY METHOD 10/17/2024 7:39 AM EDT [facility] nRBC 0.0 <=0.0 per 100 WBCs LAB HEMATOLOGY METHOD 10/17/2024 7:39 AM EDT [facility] Blood Venous blood specimen / Unknown Venipuncture / Unknown 10/17/2024 7:12 AM EDT 10/17/2024 7:28 AM EDT us Candelaria Hahn MD LAB BLOOD ORDERABLES Final Resu lt [facility] [address] [place] [address] documented in this encounter Visit Diagnoses Diagnosis [...] documented as of this encounter Care Teams Conference Reservationist Relationship Specialty Start Date End Date Pcp, [place] [address] PCP - General Family Medicine 09/04/23 documented as of this encounter
--- OUTSIDE RECORDS SUMMARY | 2024-10-17 08:25 | XMS_ITS | Encounter Summary ---
Author Organization Healthcare Address [address] [place] [address] Care Team Providers Care Water Filterer Name Role Phone Pcp, No Primary Care Provider Unavailabl e Reason for Visit * Auth/Cert (Routine) Specialty Diagnoses / Procedures Referred By Contac t Referred To Contact Diagnoses Multiple vessel coronary artery disease Multiple vessel coronary artery disease [I25.10] Procedures NV CATH PLACE/CORONARY ANGIO, IMG SUPER/INTERP NV RIGHT HEART CATH O2 SATURATION & CARDIAC OUTPUT Coronary angiography Right heart catheterization Candelaria Hahn MD [address] [place] [address] Phone: tel: fax: Cardiac Pocket Machine Operator [address] [place] [address] Phone: tel: Referral ID Status Reason Start Date Expiration Date Visits Re quested Visits Authorized [id number] 1 1 Encounter Details Date Type Department Care Team (Late st Contact Info) Description 10/17/2024 8:25 AM EDT - 10/17/2024 10:40 AM EDT Surgery Cardiac Pocket Machine Operator [address] [place] [address] Candelaria Hahn MD [address] [place] [address] Coronary angiography [20283 (CPT )] Surgery Details Date/Time Status Location OR Service Patient Class Case Class Case Type Trauma Case? 10/17/2024 8:25 AM Posted ANEUDY ENGINEERING DRAFTER CH ENGINEERING DRAFTER [facility] Out[facility] Surgery E-Elect nely Panel 1 [...] a day. cholecalciferol (Vitamin D-3) 1.25 MG (22776 UT) capsule Take 1 capsule by mouth [...] been discussed with the patient and/or their agricultural sales representative. All questions answered and they [...] for CAD, HLD, HTN, who presented to [facility] on 10/16/24 for elective right [...] Insecurity: No Food Insecurity (03/13/2023) Received from [facility] ([place], [place], [place], [place] Food Insecurity Food run out past 12 months: Not on file Food did not last past 12 months: Not on file Transportation Needs: Not on file Physical Activity: Not on file Stress: Not on file (12/28/2023) Social Connections: Unknown (04/02/2023) Received from [facility] Family and Community Support Help with Day-to-Day Activities: Not on file Lonely or Isolated: Not on file Intimate Partner Violence: Unknown (04/02/2023) Received from [facility] Abuse Screen Unsafe at Home or Work/School: Not on file Feels Threatened by Someone?: Not on file Does Anyone Keep You from Contacting Others or Doint Things Outside the Home?: Not on file Physical Sign of Abuse Present: Not on file Housing Stability: Unknown (04/02/2023) Received from [facility] Housing Stability Current Living Arrangements: Not on [...] for CAD, HTN, HLD, who presented to [facility] on 10/16/24 for elective coronary [...] Description 03/10/2025 10:00 AM EST Office Visit [facility] Multidisciplinary Oncology Clinic [address] [place] [address] Megan Spangler MD [address] [facility] [address] [place] [address] documented as of this encounter Procedures Procedure [...] and dyslipidemia, as applicable. Candelaria Hahn MD, [facility], [facility] Geothermal Production Manager [facility] Heart [facility] Vascular [place] Prenatal Genetic Counselorphonograph needle tip maker Division of Cardiovascular Medicine [facility] Email: [email or web address] Procedure Details After informed consent was obtained, [...] the patient was transferred back to the laborer general holding area in good condition. Coronary Findings [...] POCT creatinine (10/17/2024 7:21 AM EDT) [facility] Creatinine, Point of Care 1.0 0.7 - 1.2 mg/dL 10/17/2024 7:25 AM EDT [facility] POCT eGFR 89 mL/min/1. 73m*2 10/17/2024 7:25 AM EDT [facility] Abrasive Grinder ID Sarahy Yang 10/17/2024 7:25 AM EDT [facility] Device ID [id number] 10/17/2024 7:25 AM EDT [facility] Comment 10/17/2024 7:25 AM EDT [facility] Comment:Testing performed on i-STAT at the point of care. Reported eGFRcr in mL/min/1.73m2 is based the CKD-EPI 2020 equation that does not use a race coefficient. Blood Venous blood specimen / Unknown 10/17/2024 7:21 AM EDT 10/17/2024 7:25 AM EDT us Candelaria Hahn MD LAB POINT OF CARE TE ST DOCKED DEVICE UNSOLICITED RESULTS Final Result [facility] [address] LAB [address] [place] [address] * (ABNORMAL) Basic metabolic panel (10/17/2024 7:12 AM EDT) Glucose, Plasma 116(H) 74 - 99 mg/dL 10/17/2024 8:35 AM EDT [facility] BUN, Plasma 17 7 - 21 mg/dL 10/17/2024 8:35 AM EDT [facility] Creatinine, Plasma 0.92 0.70 - 1.20 mg/dL 10/17/2024 8:35 AM EDT [facility] BUN/Creatinine Ratio 18 10/17/2024 8:35 AM EDT [facility] Sodium, Plasma 137 136 - 145 mmol/L 10/17/2024 8:35 AM EDT [facility] Potassium, Plasma 6.0(H) 3.6 - 4.9 mmol/L 10/17/2024 8:35 AM EDT [facility] Comment:Hemolyzed, result ma y be falsely increased. Chloride, Plasma 105 97 - 107 mmol/L 10/17/2024 8:35 AM EDT [facility] CO2, Plasma 19(L) 22 - 29 mmol/L 10/17/2024 8:35 AM EDT [facility] Anion Gap 13 6 - 16 mmol/L 10/17/2024 8:35 AM EDT [facility] Total Calcium, Plasma 9.3 8.9 - 10.2 mg/dL 10/17/2024 8:35 AM EDT [facility] eGFRcr 98.9 mL/min/1.7 3m*2 10/17/2024 8:35 AM EDT [facility] Comment:Reported eGFRcr in m L/min/1.73m2 is based the CKD-EPI 2020 equation that does not use a race coefficient. Blood Venous blood specimen / Unknown Venipuncture / Unknown 10/17/2024 7:12 AM EDT 10/17/2024 7:28 AM EDT us Candelaria Hahn MD LAB BLOOD ORDERABLES Final Resu lt [facility] [address] [place] [address] * Hemogram (CBC) (10/17/2024 7:12 AM EDT) WBC Count 6.70 3.70 - 10.30 10*3/uL LAB HEMATOLOGY METHOD 10/17/2024 7:39 AM EDT [facility] RBC Count 4.75 4.60 - 6.10 10*6/uL LAB HEMATOLOGY METHOD 10/17/2024 7:39 AM EDT [facility] HGB 14.1 13.7 - 17.5 g/dL LAB HEMATOLOGY METHOD 10/17/2024 7:39 AM EDT [facility] HCT 44.0 40.0 - 51.0 % LAB HEMATOLOGY METHOD 10/17/2024 7:39 AM EDT [facility] Platelet Count 179 155 - 369 10*3/uL LAB HEMATOLOGY METHOD 10/17/2024 7:39 AM EDT [facility] MCV 93 79 - 98 fL LAB HEMATOLOGY METHOD 10/17/2024 7:39 AM EDT [facility] MCH 29.7 26.0 - 32.0 pg LAB HEMATOLOGY METHOD 10/17/2024 7:39 AM EDT [facility] MCHC 32.0 30.7 - 35.5 g/dL LAB HEMATOLOGY METHOD 10/17/2024 7:39 AM EDT [facility] RDW 12.3 11.5 - 14.5 % LAB HEMATOLOGY METHOD 10/17/2024 7:39 AM EDT [facility] MPV 10.3 8.8 - 12.5 fL LAB HEMATOLOGY METHOD 10/17/2024 7:39 AM EDT [facility] nRBC 0.0 <=0.0 per 100 WBCs LAB HEMATOLOGY METHOD 10/17/2024 7:39 AM EDT [facility] Blood Venous blood specimen / Unknown Venipuncture / Unknown 10/17/2024 7:12 AM EDT 10/17/2024 7:28 AM EDT us Candelaria Hahn MD LAB BLOOD ORDERABLES Final Resu lt [facility] [address] [place] [address] documented in this encounter Visit Diagnoses Diagnosis [...] documented as of this encounter Care Teams Water Filterer Relationship Specialty Start Date End Date Allison, [place] [address] PCP - General Family Medicine 09/04/23 documented as of this encounter
--- NOTE | 2024-11-08 09:39 | XR_ITS ---
FINAL REPORT CLINICAL HISTORY: right finger fx COMPARISON: 11/01/2024 FINDINGS: Three views of the right hand show redemonstration of the fracture at the dorsal base of the second distal phalanx. Displacement is worse compared to the prior exam now measuring 2.5 mm and previously measured 1.5 mm. The joint spaces appear normal. IMPRESSION: Slight increase in displacement of second distal phalange base fracture. Reviewed, Interpreted and Dictated by Madie Hallman MD Transcribed by Barbara Arias Authenticated and [facility]
--- OUTSIDE RECORDS SUMMARY | 2024-11-08 10:09 | XMS_ITS | Encounter Summary ---
Author Organization Healthcare Address [address] [place] [address] Care Team Providers Care Fulfillment Coordinator Name Role Phone Pcp, No Primary [...] Description 03/10/2025 10:00 AM EST Office Visit [facility] Multidisciplinary Oncology Clinic [address] [place] [address] Megan Spangler MD [id number] [place] [address] documented as of this encounter Visit Diagnoses Not on filedocumented in this encounter Additional Health Concerns Assessment Noted Time A fall risk assessment has been complete d for the patient 03/18/2024 2:36 PM EST A Body Mass Index follow-up plan has been documented for the patient 01/29/2024 3:48 PM EST documented as of this encounter Care Teams Fulfillment Coordinator Relationship Specialty Start Date End Date Pcp, No [address] [place] [address] PCP - General Family Medicine 09/04/23 documented as of this encounter
--- OUTSIDE RECORDS SUMMARY | 2024-11-08 10:09 | XMS_ITS | Encounter Summary ---
Author Organization Healthcare Address [address] [place] [address] Care Team Providers Care Senior Telecommunications Engineer Name Role Phone Pcp, No Primary Care Provider Unavailabl e Encounter Details Date Type Department Care Team (Late Contact Info) Description 09/20/2024 Telephone [facility] [address] [place] [address] Harmony Muñoz, RN [facility] Social History [...] Office Visit [facility] Multidisciplinary Oncology Clinic [address] [place] [address] Megan Spangler MD [address] [facility] [address] [place] [address] documented as of this encounter Visit Diagnoses Not on filedocumented in this encounter Additional Health Concerns Assessment Noted Time A fall risk assessment has been complete d for the patient 03/18/2024 2:36 PM EST A Body Mass Index follow-up plan has been documented for the patient 01/29/2024 3:48 PM EST documented as of this encounter Care Teams Senior Telecommunications Engineer Relationship Specialty Start Date End Date Pcp, No [address] [place] [address] PCP - General Family Medicine 09/04/23 documented as of this encounter
--- OUTSIDE RECORDS SUMMARY | 2024-11-08 10:10 | XMS_ITS | Clinical Summary ---
Author Organization [facility] Address [address] [place] [address] Phone [email or web address] Care Team Providers Care Seo Marketing Specialist Name Role Phone Jem Guillermo Primary Care Provider [phone] Allergies Active Allergy Reactions Criticality Noted Date [...] each day. 1 Active D3-50 1.25 MG (91416 UT) capsule TAKE 1 CAPSULE BY MOUTH [...] topic Insurance LEXIE IN COPAY [address] [facility] [id number] [place] [address] Care Teams Seo Marketing Specialist Relationship Specialty Start Date End Date Guillermo Parish [address] [address] PCP - General Family Medicine 10/24/19
--- OUTSIDE RECORDS SUMMARY | 2024-11-08 10:10 | XMS_ITS | Encounter Summary ---
Author Organization Healthcare Address [address] [place] [address] Care Team Providers Care Commercial Lines Assistant Name Role Phone Pcp, No Primary Care [...] Description 03/10/2025 10:00 AM EST Office Visit [facility] Multidisciplinary Oncology Clinic [address] [place] [address] Megan Spangler MD [phone] [place] [address] documented as of this encounter Visit Diagnoses Not on filedocumented in this encounter Additional Health Concerns Assessment Noted Time A fall risk assessment has been complete d for the patient 03/18/2024 2:36 PM EST A Body Mass Index follow-up plan has been documented for the patient 01/29/2024 3:48 PM EST documented as of this encounter Care Teams Commercial Lines Assistant Relationship Specialty Start Date End Date Pcp, No [address] [place] [address] PCP - General Family Medicine 09/04/23 documented as of this encounter
--- OUTSIDE RECORDS SUMMARY | 2024-11-08 10:10 | XMS_ITS | Clinical Summary ---
Author Organization [facility] Address [address] [place] [address] Care Team Providers Care Bookbinder Chief Name Role Phone Keri Mckinnon APRN Primary [...] 12/09/2018, Additional history exists Insurance Care Teams Bookbinder Chief Relationship Specialty Start Date End Date Keri Mckinnon APRN [address] [place] [address] PCP - General Nurse Practitioner 04/02/23
--- OUTSIDE RECORDS SUMMARY | 2024-11-08 10:10 | XMS_ITS | Encounter Summary ---
Author Organization Healthcare Address [address] [place] [address] Care Team Providers Care Java Developer Name Role Phone Pcp, No Primary Care [...] 03/10/2025 10:00 AM EST Office Visit [facility] Multidisciplinary Oncology Clinic [address] [place] [address] Megan Spangler MD [id number] [place] [address] documented as of this encounter Visit Diagnoses Not on filedocumented in this encounter Additional Health Concerns Assessment Noted Time A fall risk assessment has been complete d for the patient 03/18/2024 2:36 PM EST A Body Mass Index follow-up plan has been documented for the patient 01/29/2024 3:48 PM EST documented as of this encounter Care Teams Java Developer Relationship Specialty Start Date End Date Pcp, No [address] [place] [address] PCP - General Family Medicine 09/04/23 documented as of this encounter
--- OUTSIDE RECORDS SUMMARY | 2024-11-08 10:10 | XMS_ITS | Encounter Summary ---
Author Organization [facility] Address [address] [place] [address] Care Team Providers Care Child Study Team Director Name Role Phone Pcp, No Primary Care [...] Description 03/10/2025 10:00 AM EST Office Visit [facility] Multidisciplinary Oncology Clinic [address] [place] [address] Megan Spangler MD [address] [place] [address] documented as of this encounter Visit Diagnoses Not on filedocumented in this encounter Additional Health Concerns Assessment Noted Time A fall risk assessment has been complete d for the patient 03/18/2024 2:36 PM EST A Body Mass Index follow-up plan has been documented for the patient 10/17/2024 12:28 PM EDT documented as of this encounter Care Teams Child Study Team Director Relationship Specialty Start Date End Date Pcp, No [address] [place] [address] PCP - General Family Medicine 09/04/23 documented as of this encounter
--- OUTSIDE RECORDS SUMMARY | 2024-11-08 10:10 | XMS_ITS | Clinical Summary ---
Author Organization Healthcare Address [address] [place] [place] [address] Care Team Providers Care Long Term Name Role Phone Pcp, No Primary Care [...] daily. Active cholecalciferol (Vitamin D-3) 1.25 MG (98996 UT) capsule Take 1 capsule by mouth [...] - 10/17/2024 10:40 AM EDT Surgery Cardiac Dock Coordinator [address] [place] [address] Candelaria Hahn MD Coronary angiography [85072 (CPT )] 10/17/2024 6:29 AM EDT - 10/17/2024 1:11 PM EDT Hospital Encounter Cardiac Dock Coordinator [address] [place] [address] Candelaria Hahn MD Multiple vessel coronary artery disease Discharge Disposition: Home or Self Care 10/17/2024 Travel 10/10/2024 Travel 09/27/2024 4:44 PM EDT - 09/27/2024 11:59 PM EDT Hospital Encounter [facility] [address] [place] [phone] Chest pain, unspecified Discharge Disposition: Home or Self Care 09/27/2024 1:44 PM EDT - 09/27/2024 4:43 PM EDT Hospital Encounter [facility] [address] [place] [address] Chest pain, unspecified Discharge Disposition: Home or Self Care 09/27/2024 12:22 PM EDT - 09/27/2024 1:43 PM EDT Hospital Encounter [facility] [address] [place] [address] Mesfin Jacobsen RN Chest pain, unspecified Discharge Disposition: Home or Self Care 09/27/2024 Travel 09/20/2024 Travel 09/20/2024 Telephone [facility] [address] [place] [phone] Harmony Muñoz, RN from Last 3 Months [...] Office Visit [facility]cology [facility] [address] [place] [address] Megan Spangler MD [address] [facility] [address] [place] [address] Health Maintenance Due Date Last Done Comments [...] 2020 UKY-Zoster Vaccines (1 of 2) 2020 [id number] Vaccine (4 - season) 2024 02/14/2021, 06/06/2020, 05/09/2020 UKY-Influenza Vaccine (#1) 10/24/202411/06, [...] on patient's age to complete this topic Procedures Procedure Name Priority Date/Time Associated Diagnosis [...] and dyslipidemia, as applicable. Candelaria Hahn MD, [facility], [facility] Coffee Blender [facility] [place] Lead Burner Supervisorchucking machine operator Division of Cardiovascular Medicine [facility] Email: [email or web address] Procedure Details After informed consent was [...] * POCT creatinine (10/17/2024 7:21 AM EDT) [facility] Creatinine, Point of Care 1.0 0.7 - 1.2 mg/dL 10/17/2024 7:25 AM EDT [facility] POCT eGFR 89 mL/min/1. 73m*2 10/17/2024 7:25 AM EDT [facility] Life Cycle Assessment Analyst ID Sarahy Yang 10/17/2024 7:25 AM EDT [facility] Device ID [id number] 10/17/2024 7:25 AM EDT HEALTHCARE LAB Comment 10/17/2024 7:25 AM EDT [facility] Comment:Testing performed on i-STAT at the point of care. Reported eGFRcr in mL/min/1.73m2 is based the CKD-EPI 2020 equation that does not use a race coefficient. Blood Venous blood specimen / Unknown 10/17/2024 7:21 AM EDT 10/17/2024 7:25 AM EDT us Candelaria Hahn MD LAB POINT OF CARE TE ST DOCKED DEVICE UNSOLICITED RESULTS Final Result [facility] [address] [place] [address] * Hemogram (CBC) (10/17/2024 7:12 AM EDT) WBC Count 6.70 3.70 - 10.30 10*3/uL LAB HEMATOLOGY METHOD 10/17/2024 7:39 AM EDT [facility] RBC Count 4.75 4.60 - 6.10 10*6/uL LAB HEMATOLOGY METHOD 10/17/2024 7:39 AM EDT [facility] HGB 14.1 13.7 - 17.5 g/dL LAB HEMATOLOGY METHOD 10/17/2024 7:39 AM EDT [facility] HCT 44.0 40.0 - 51.0 % LAB HEMATOLOGY METHOD 10/17/2024 7:39 AM EDT [facility] Platelet Count 179 155 - 369 10*3/uL LAB HEMATOLOGY METHOD 10/17/2024 7:39 AM EDT [facility] MCV 93 79 - 98 fL LAB HEMATOLOGY METHOD 10/17/2024 7:39 AM EDT [facility] MCH 29.7 26.0 - 32.0 pg LAB HEMATOLOGY METHOD 10/17/2024 7:39 AM EDT [facility] MCHC 32.0 30.7 - 35.5 g/dL LAB HEMATOLOGY METHOD 10/17/2024 7:39 AM EDT [facility] RDW 12.3 11.5 - 14.5 % LAB HEMATOLOGY METHOD 10/17/2024 7:39 AM EDT [facility] MPV 10.3 8.8 - 12.5 fL LAB HEMATOLOGY METHOD 10/17/2024 7:39 AM EDT [facility] nRBC 0.0 <=0.0 per 100 WBCs LAB HEMATOLOGY METHOD 10/17/2024 7:39 AM EDT [facility] Blood Venous blood specimen / Unknown Venipuncture / Unknown 10/17/2024 7:12 AM EDT 10/17/2024 7:28 AM EDT us Candelaria Hahn MD LAB BLOOD ORDERABLES Final Resu lt [facility] [address] [place] [address] * (ABNORMAL) Basic metabolic panel (10/17/2024 7:12 AM EDT) Glucose, Plasma 116(H) 74 - 99 mg/dL 10/17/2024 8:35 AM EDT [facility] BUN, Plasma 17 7 - 21 mg/dL 10/17/2024 8:35 AM EDT [facility] Creatinine, Plasma 0.92 0.70 - 1.20 mg/dL 10/17/2024 8:35 AM EDT [facility] BUN/Creatinine Ratio 18 10/17/2024 8:35 AM EDT [facility] Sodium, Plasma 137 136 - 145 mmol/L 10/17/2024 8:35 AM EDT [facility] Potassium, Plasma 6.0(H) 3.6 - 4.9 mmol/L 10/17/2024 8:35 AM EDT [facility] Comment:Hemolyzed, result ma y be falsely increased. Chloride, Plasma 105 97 - 107 mmol/L 10/17/2024 8:35 AM EDT [facility] CO2, Plasma 19(L) 22 - 29 mmol/L 10/17/2024 8:35 AM EDT [facility] Anion Gap 13 6 - 16 mmol/L 10/17/2024 8:35 AM EDT [facility] Total Calcium, Plasma 9.3 8.9 - 10.2 mg/dL 10/17/2024 8:35 AM EDT [facility] eGFRcr 98.9 mL/min/1.7 3m*2 10/17/2024 8:35 AM EDT [facility] Comment:Reported eGFRcr in m L/min/1.73m2 is based the CKD-EPI 2020 equation that does not use a race coefficient. Blood Venous blood specimen / Unknown Venipuncture / Unknown 10/17/2024 7:12 AM EDT 10/17/2024 7:28 AM EDT Candelaria Hahn MD LAB BLOOD ORDERABLES Final Resu lt [facility] [address] [place] [address] * CT Angio Cardiac FFR (09/27/2024 4:44 [...] signing this report, I, the attending physician, [email or web address] I have personally reviewed the images/data for [...] Final Resul t from Last 3 Months Insurance [facility] Advance Directives * Full Code (Latest Code Status on File) Date Activated Date Inactivated Comments 10/17/2024 10:01 AM 10/17/2024 3:16 PM Question Answer Comments I have reviewed the capacity from the link above and, if needed, have updated to appropriate status: Yes Care Teams Long Term Relationship Specialty Start Date End Date Pcp, No [address] [place] [address] PCP - General Family Medicine 09/04/23
== END 2024-11-08 23:59 | disposition home or self-care (01) ==
LOC: RAD 09:39
PROVIDERS: Visit Provider Physician Assistant
DX: S62.630A Displaced fracture of distal phalanx of right index finger, initial encounter for closed fracture (principal); M20.019 Mallet finger of unspecified finger(s)
CPT/HCPCS: 73130

== ENCOUNTER 2024-11-21 15:03 | Outpatient (CLI) | payer BC, SELFPAY ==
--- OUTSIDE RECORDS SUMMARY | 2024-09-27 12:22 | XMS_ITS | Encounter Summary ---
Author Organization [facility] Address [address] [place] [address] Care Team Providers Care Rip Machine Operator Name Role Phone Pcp, No Primary Care Provider Unavailabl e Reason for Referral * Imaging (Routine) - Closed Specialty Diagnoses / Procedures Referred By Contac t Referred To Contact Radiology Diagnoses Chest pain, unspecified Procedures CT Angio Cardiac Coronary Arteries Jorge Adkins MD [address] [place] [address] Phone: tel: fax: Referral ID Status Reason Start Date Expiration Date Visits Re quested Visits Authorized [id number] Closed 08/25/2024 02/24/2026 1 1 Reason for Visit * Imaging (Routine) - Closed Specialty Diagnoses / Procedures Referred By Contac t Referred To Contact Radiology Diagnoses Chest pain, unspecified Procedures CT Angio Cardiac Coronary Arteries Jorge Adkins MD [address] [place] [address] Phone: tel: fax: Referral ID Status Reason Start Date Expiration Date Visits Re quested Visits Authorized [id number] Closed 08/25/2024 02/24/2026 1 1 Encounter Details Date Type Department Care Team (Latest Contact Info) Description 09/27/2024 12:22 PM EDT - 09/27/2024 1:43 PM EDT Hospital Encounter [facility] Radiology [address] [place] [address] Mesfin Parker RN CH-PAV A 5 T2 [...] a day. cholecalciferol (Vitamin D-3) 1.25 MG (35075 UT) capsule Take 1 capsule by mouth [...] from the original note were not included. [id number] Understanding coronary computed tomography angiography (CCTA) Coronary [...] site Last Reviewed Date: 2023 00:00:00 ?? [id number] The [employer]. All rights reserved. This information is not [...] Description 03/10/2025 10:00 AM EST Office Visit [facility] Multidisciplinary Oncology Clinic [address] [place] [address] Megan Spangler MD [address] [place] [address] documented as of this encounter Procedures Procedure [...] source 192 MDCT scanner (Somatom Force, Siemens [employer])was used for data acquisition. A non-contrast [...] documented as of this encounter Care Teams Rip Machine Operator Relationship Specialty Start Date End Date Pcp, [place] [address] PCP - General Family Medicine 09/04/23 documented as of this encounter
--- OUTSIDE RECORDS SUMMARY | 2024-09-27 13:44 | XMS_ITS | Encounter Summary ---
Author Organization [facility] Address [address] [place] [address] Care Team Providers Care School Community Relations Coordinator Name Role Phone Pcp, No Primary Care Provider Unavailabl e Reason for Referral * Imaging (Routine) - Closed Specialty Diagnoses / Procedures Referred By Contac t Referred To Contact Radiology Diagnoses Chest pain, unspecified Procedures CT Angio Cardiac Plaque Analysis Jorge Adkisn MD [address] [place] [address] Phone: tel: fax: Referral ID Status Reason Start Date Expiration Date Visits Re quested Visits Authorized [id number] Closed 09/27/2024 03/29/2026 1 1 Reason for Visit * Imaging (Routine) - Closed Specialty Diagnoses / Procedures Referred By Contac t Referred To Contact Radiology Diagnoses Chest pain, unspecified Procedures CT Angio Cardiac Plaque Analysis Jorge Adkins MD [address] [place] [address] Phone: tel: fax: Referral ID Status Reason Start Date Expiration Date Visits Re quested Visits Authorized [id number] Closed 09/27/2024 03/29/2026 1 1 Encounter Details Date Type Department Care Team (Latest Contact Info) Description 09/27/2024 1:44 PM EDT - 09/27/2024 4:43 PM EDT Hospital Encounter [facility] [address] [place] [address] Chest pain, unspecified Discharge Disposition: Home or [...] a day. cholecalciferol (Vitamin D-3) 1.25 MG (43765 UT) capsule Take 1 capsule by mouth [...] Description 03/10/2025 10:00 AM EST Office Visit [facility] Mult[facility] On[facility] Clinic [address] [place] [address] Megan Spangler MD [id number] [place] [address] documented as of this encounter Procedures Procedure [...] documented as of this encounter Care Teams School Community Relations Coordinator Relationship Specialty Start Date End Date Pcp, [place] [address] PCP - General Family Medicine 09/04/23 documented as of this encounter
--- OUTSIDE RECORDS SUMMARY | 2024-09-27 16:44 | XMS_ITS | Encounter Summary ---
Author Organization [facility] Address [address] [place] [address] Care Team Providers Care Property Utilization Manager Name Role Phone Pcp, No Primary Care Provider Unavailabl e Reason for Referral * Imaging (Routine) - Closed Specialty Diagnoses / Procedures Referred By Drewac t Referred To Contact Radiology Diagnoses Chest pain, unspecified Procedures CT Angio Cardiac FFR Jorge Adkins MD [facility] [place] [address] Phone: tel: fax: Referral ID Status Reason Start Date Expiration Date Visits Re quested Visits Authorized [id number] Closed 09/27/2024 03/29/2026 1 1 Reason for Visit * Imaging (Routine) - Closed Specialty Diagnoses / Procedures Referred By Contac t Referred To Contact Radiology Diagnoses Chest pain, unspecified Procedures CT Angio Cardiac FFR Jorge Adkins MD [address] [place] [address] Phone: tel: fax: Referral ID Status Reason Start Date Expiration Date Visits Re quested Visits Authorized [id number] Closed 09/27/2024 03/29/2026 1 1 Encounter Details Date Type Department Care Team (Latest Contact Info) Description 09/27/2024 4:44 PM EDT - 09/27/2024 11:59 PM EDT Hospital Encounter [facility] [address] [place] [address] Chest pain, unspecified Discharge Disposition: Home or [...] a day. cholecalciferol (Vitamin D-3) 1.25 MG (35368 UT) capsule Take 1 capsule by mouth [...] Office Visit [facility] [address] [place] [address] Megan Spangler MD [id number] [place] [address] documented as of this encounter Procedures Procedure [...] documented as of this encounter Care Teams Property Utilization Manager Relationship Specialty Start Date End Date Pcp, [place] [address] PCP - General Family Medicine 09/04/23 documented as of this encounter
--- OUTSIDE RECORDS SUMMARY | 2024-10-17 06:29 | XMS_ITS | Encounter Summary ---
Author Organization Healthcare Address [address] [place] [address] Care Team Providers Care Engraver Automatic Name Role Phone Pcp, No Primary Care Provider Unavailabl e Reason for Visit * Auth/Cert (Routine) Specialty Diagnoses / Procedures Referred By Contac t Referred To Contact Diagnoses Multiple vessel coronary artery disease Multiple vessel coronary artery disease [I25.10] Procedures [place] CATH PLACE/CORONARY ANGIO, IMG SUPER/INTERP [place] RIGHT HEART CATH O2 SATURATION & CARDIAC OUTPUT Coronary angiography Right heart catheterization Candelaria Hahn MD [address] [place] [address] Phone: tel: fax: Cardiac Precision Farming Coordinator [address] [place] [address] Phone: tel: Referral ID Status Reason Start Date Expiration Date Visits Re quested Visits Authorized [id number] 1 1 Encounter Details Date Type Department Care Team (Latest Contact Info) Description 10/17/2024 6:29 AM EDT - 10/17/2024 1:11 PM EDT Hospital Encounter Cardiac Precision Farming Coordinator [address] [place] [address] Candelaria Hahn MD [address] [place] [address] Multiple vessel coronary artery disease [...] a day. cholecalciferol (Vitamin D-3) 1.25 MG (26259 UT) capsule Take 1 capsule by mouth [...] tablet Take 1 tablet by mouth daily. aspirin 81 MG chewable tablet Chew 1 tablet daily. aspirin 81 mg tablet 360 tablet 10/18/2024 rosuvastatin (Crestor) 20 MG tablet Take 1 tablet by mouth daily. 90 tablet 1 10/17/2024 10/17/2025 documented as of this encounter Miscellaneous Notes [...] no heavy work or lifting, driving a 800razorshift car, or vigorous sports. ? Do not [...] been discussed with the patient and/or their claim representative. All questions answered and they agree to proceed. Shaq Haley DO Department of Cardiovascular Disease Fellow, PGY-4 * H&P - Fernando Haley DO - 10/16/2024 8:56 PM EDT Images from the original note were not included. History and Physical History of Present Illness Quirino Gonzáles is a 54 y.o. male with past medical history significant for CAD, HLD, HTN, who presented to [facility] on 10/16/24 for elective right heart catheterization [...] Insecurity: No Food Insecurity (03/13/2023) Received from [employer] ([place], [place], [place], [place]) Food Insecurity Food run out past 12 months: Not on file Food did not last past 12 months: Not on file Transportation Needs: Not on file Physical Activity: Not on file Stress: Not on file (12/28/2023) Social Connections: Unknown (04/02/2023) Received from [facility] Family and Community Support Help with Day-to-Day Activities: Not on file Lonely or Isolated: Not on file Intimate Partner Violence: Unknown (04/02/2023) Received from [facility] Abuse Screen Unsafe at Home or Work/School: Not on file Feels Threatened by Someone?: Not on file Does Anyone Keep You from Contacting Others or Doint Things Outside the Home?: Not on file Physical Sign of Abuse Present: Not on file Housing Stability: Unknown (04/02/2023) Received from [facility] Housing Stability Current Living Arrangements: Not on [...] for CAD, HTN, HLD, who presented to [facility] on 10/16/24 for elective coronary angiography and [...] Description 03/10/2025 10:00 AM EST Office Visit [facility] Multidisciplinary Oncology Clinic [address] [place] [address] Megan Spangler MD [address] [facility] [address] [place] [address] documented as of this encounter Procedures Procedure [...] and dyslipidemia, as applicable. Candelaria Hahn MD, [facility] [employer] [facility] [place] Chemist Helpercentral sterile supply technician Division of Cardiovascular Medicine [facility] Email: [email or web address] Procedure Details After informed consent was obtained, [...] the patient was transferred back to the medical lab technologist holding area in good condition. Coronary Findings [...] Phase: Resting Aortic AO: 117/82 (101) mmHg Jorge Adkins MD CV CARDIAC CATH PROCEDURES Fi nal Result * POCT creatinine (10/17/2024 7:21 AM EDT) [facility] Creatinine, Point of Care 1.0 0.7 - 1.2 mg/dL 10/17/2024 7:25 AM EDT HEALTHCARE LAB POCT eGFR 89 mL/min/1. 73m*2 10/17/2024 7:25 AM EDT [facility] Flight Service Agent ID Sarahy Yang A 10/17/2024 7:25 AM EDT [email or web address] LAB Device ID [id number] 10/17/2024 7:25 AM EDT [facility] Comment 10/17/2024 7:25 AM EDT [facility] Comment:Testing performed on i-STAT at the point of care. Reported eGFRcr in mL/min/1.73m2 is based the CKD-EPI 2020 equation that does not use a race coefficient. Blood Venous blood specimen / Unknown 10/17/2024 7:21 AM EDT 10/17/2024 7:25 AM EDT Candelaria Hahn MD LAB POINT OF CARE TE ST DOCKED DEVICE UNSOLICITED RESULTS Final Result [facility] [address] [place], [place] [id number] [place] [address] LAB [address] [place] [address] * (ABNORMAL) Basic metabolic panel (10/17/2024 7:12 AM EDT) Glucose, Plasma 116(H) 74 - 99 mg/dL 10/17/2024 8:35 AM EDT [facility] BUN, Plasma 17 7 - 21 mg/dL 10/17/2024 8:35 AM EDT [facility] Creatinine, Plasma 0.92 0.70 - 1.20 mg/dL 10/17/2024 8:35 AM EDT [facility] BUN/Creatinine Ratio 18 10/17/2024 8:35 AM EDT [facility] Sodium, Plasma 137 136 - 145 mmol/L 10/17/2024 8:35 AM EDT [facility] Potassium, Plasma 6.0(H) 3.6 - 4.9 mmol/L 10/17/2024 8:35 AM EDT [facility] Comment:Hemolyzed, result ma y be falsely increased. Chloride, Plasma 105 97 - 107 mmol/L 10/17/2024 8:35 AM EDT [facility] CO2, Plasma 19(L) 22 - 29 mmol/L 10/17/2024 8:35 AM EDT [facility] Anion Gap 13 6 - 16 mmol/L 10/17/2024 8:35 AM EDT [facility] Total Calcium, Plasma 9.3 8.9 - 10.2 mg/dL 10/17/2024 8:35 AM EDT [facility] eGFRcr 98.9 mL/min/1.7 3m*2 10/17/2024 8:35 AM EDT [facility] Comment:Reported eGFRcr in m L/min/1.73m2 is based the CKD-EPI 2020 equation that does not use a race coefficient. Blood Venous blood specimen / Unknown Venipuncture / Unknown 10/17/2024 7:12 AM EDT 10/17/2024 7:28 AM EDT us Candelaria Hahn MD LAB BLOOD ORDERABLES Final Resu lt [facility] [address] [place] [address] * Hemogram (CBC) (10/17/2024 7:12 AM EDT) WBC Count 6.70 3.70 - 10.30 10*3/uL LAB HEMATOLOGY METHOD 10/17/2024 7:39 AM EDT [facility] RBC Count 4.75 4.60 - 6.10 10*6/uL LAB HEMATOLOGY METHOD 10/17/2024 7:39 AM EDT [facility] HGB 14.1 13.7 - 17.5 g/dL LAB HEMATOLOGY METHOD 10/17/2024 7:39 AM EDT [facility] HCT 44.0 40.0 - 51.0 % LAB HEMATOLOGY METHOD 10/17/2024 7:39 AM EDT [facility] Platelet Count 179 155 - 369 10*3/uL LAB HEMATOLOGY METHOD 10/17/2024 7:39 AM EDT [facility] MCV 93 79 - 98 fL LAB HEMATOLOGY METHOD 10/17/2024 7:39 AM EDT [facility] MCH 29.7 26.0 - 32.0 pg LAB HEMATOLOGY METHOD 10/17/2024 7:39 AM EDT [facility] MCHC 32.0 30.7 - 35.5 g/dL LAB HEMATOLOGY METHOD 10/17/2024 7:39 AM EDT [facility] RDW 12.3 11.5 - 14.5 % LAB HEMATOLOGY METHOD 10/17/2024 7:39 AM EDT [facility] MPV 10.3 8.8 - 12.5 fL LAB HEMATOLOGY METHOD 10/17/2024 7:39 AM EDT [facility] nRBC 0.0 <=0.0 per 100 WBCs LAB HEMATOLOGY METHOD 10/17/2024 7:39 AM EDT [facility] Blood Venous blood specimen / Unknown Venipuncture / Unknown 10/17/2024 7:12 AM EDT 10/17/2024 7:28 AM EDT us Candelaria Hahn MD LAB BLOOD ORDERABLES Final Resu lt [facility] [address] [place] [address] documented in this encounter Visit Diagnoses Diagnosis [...] [id number] (Given - Provider: Josseline Perry RN) nitroglycerin (Tridil) in D5W IV solution 100 mcg/mL (CANCELED) As needed, Starting on Thu10/17/24 at 0920, Until Thu10/17/24 at 0949, Routine, Intraprocedure 0920 (Given - Provid er: Fernando Haley DO) ondansetron (Zofran) injection (CANCELED) As needed, Starting on Thu10/17/24 at 0917, Until Thu10/17/24 at 0949, Routine, Intraprocedure 0917 (Given - Provid er: Josseline Perry RN) [...] documented as of this encounter Care Teams Engraver Automatic Relationship Specialty Start Date End Date Pcp, [place] [address] PCP - General Family Medicine 09/04/23 documented as of this encounter
--- OUTSIDE RECORDS SUMMARY | 2024-10-17 08:25 | XMS_ITS | Encounter Summary ---
Author Organization Healthcare Address [address] [place] [address] Care Team Providers Care Sign Language Interpreter Name Role Phone Pcp, No Primary Care Provider Unavailabl e Reason for Visit * Auth/Cert (Routine) Specialty Diagnoses / Procedures Referred By Contac t Referred To Contact Diagnoses Multiple vessel coronary artery disease Multiple vessel coronary artery disease [I25.10] Procedures MA CATH PLACE/CORONARY ANGIO, IMG SUPER/INTERP MA RIGHT HEART CATH O2 SATURATION & CARDIAC OUTPUT Coronary angiography Right heart catheterization Candelaria Hahn MD [address] [place] [address] Phone: tel: fax: Cardiac Soft Water Mechanic [address] [place] [address] Phone: tel: Referral ID Status Reason Start Date Expiration Date Visits Re quested Visits Authorized [id number] 1 1 Encounter Details Date Type Department Care Team (Late st Contact Info) Description 10/17/2024 8:25 AM EDT - 10/17/2024 10:40 AM EDT Surgery Cardiac Soft Water Mechanic [address] [place] [address] Candelaria Hahn MD [address] [place] [address] Coronary angiography [70443 (CPT )] Surgery Details Date/Time Status Location OR Service Patient Class Case Class Case Type Trauma Case? 10/17/2024 8:25 AM Posted ANEUDY STEWARD[employer] RAILRO[employer] D[employer]ING [employer] CH STEWARD[employer]RO[employer] D[employer] 04 [facility] Outpatient Surgery E-Elect nely Panel 1 [...] a day. cholecalciferol (Vitamin D-3) 1.25 MG (59289 UT) capsule Take 1 capsule by mouth [...] been discussed with the patient and/or their apparel trimmings sales representative. All questions answered and they agree to proceed. Shaq Haley DO Department of Cardiovascular Disease Fellow, PGY-4 * H&P - Fernando Haley DO - 10/16/2024 8:56 PM EDT Images from the original note were not included. History and Physical History of Present Illness Quirino Gonzáles is a 54 y.o. male with past medical history significant for CAD, HLD, HTN, who presented to [facility] on 10/16/24 for elective right [...] Insecurity: No Food Insecurity (03/13/2023) Received from [employer] ([place], [place], [place], [place]) Food Insecurity Food run out past 12 months: Not on file Food did not last past 12 months: Not on file Transportation Needs: Not on file Physical Activity: Not on file Stress: Not on file (12/28/2023) Social Connections: Unknown (04/02/2023) Received from [facility] Family and Community Support Help with Day-to-Day Activities: Not on file Lonely or Isolated: Not on file Intimate Partner Violence: Unknown (04/02/2023) Received from [facility] Abuse Screen Unsafe at Home or Work/School: Not on file Feels Threatened by Someone?: Not on file Does Anyone Keep You from Contacting Others or Doint Things Outside the Home?: Not on file Physical Sign of Abuse Present: Not on file Housing Stability: Unknown (04/02/2023) Received from [facility] Housing Stability Current Living Arrangements: Not on [...] for CAD, HTN, HLD, who presented to [facility] on 10/16/24 for elective coronary [...] [facility] [address] [place] [address] Megan Spangler MD [address] [facility] [address] [place] [address] documented as of this encounter Procedures Procedure [...] and dyslipidemia, as applicable. Candelaria Hahn MD, [facility] Screw Machine Setter [facility] Physician Assistanthandbag designer Division of Cardiovascular Medicine [facility] Email: [email or web address] Procedure Details After informed consent [...] the patient was transferred back to the cemetery laborer holding area in good condition. Coronary [...] * POCT creatinine (10/17/2024 7:21 AM EDT) [facility] Creatinine, Point of Care 1.0 0.7 - 1.2 mg/dL 10/17/2024 7:25 AM EDT [facility] POCT eGFR 89 mL/min/1. 73m*2 10/17/2024 7:25 AM EDT [facility] News Production Supervisor ID Sarahy Yang 10/17/2024 7:25 AM EDT [facility] Device ID [id number] 10/17/2024 7:25 AM EDT [facility] Comment 10/17/2024 7:25 AM EDT [facility] Comment:Testing performed on i-STAT at the point of care. Reported eGFRcr in mL/min/1.73m2 is based the CKD-EPI 2020 equation that does not use a race coefficient. Blood Venous blood specimen / Unknown 10/17/2024 7:21 AM EDT 10/17/2024 7:25 AM EDT us Candelaria Hahn MD LAB POINT OF CARE TE ST DOCKED DEVICE UNSOLICITED RESULTS Final Result [facility] [address] LAB [address] [place] [address] * (ABNORMAL) Basic metabolic panel (10/17/2024 7:12 AM EDT) Glucose, Plasma 116(H) 74 - 99 mg/dL 10/17/2024 8:35 AM EDT [facility] BUN, Plasma 17 7 - 21 mg/dL 10/17/2024 8:35 AM EDT [facility] Creatinine, Plasma 0.92 0.70 - 1.20 mg/dL 10/17/2024 8:35 AM EDT [facility] BUN/Creatinine Ratio 18 10/17/2024 8:35 AM EDT [facility] Sodium, Plasma 137 136 - 145 mmol/L 10/17/2024 8:35 AM EDT [facility] Potassium, Plasma 6.0(H) 3.6 - 4.9 mmol/L 10/17/2024 8:35 AM EDT [facility] Comment:Hemolyzed, result ma y be falsely increased. Chloride, Plasma 105 97 - 107 mmol/L 10/17/2024 8:35 AM EDT [facility] CO2, Plasma 19(L) 22 - 29 mmol/L 10/17/2024 8:35 AM EDT [facility] Anion Gap 13 6 - 16 mmol/L 10/17/2024 8:35 AM EDT [facility] Total Calcium, Plasma 9.3 8.9 - 10.2 mg/dL 10/17/2024 8:35 AM EDT [facility] eGFRcr 98.9 mL/min/1.7 3m*2 10/17/2024 8:35 AM EDT [facility] Comment:Reported eGFRcr in m L/min/1.73m2 is based the CKD-EPI 2020 equation that does not use a race coefficient. Blood Venous blood specimen / Unknown Venipuncture / Unknown 10/17/2024 7:12 AM EDT 10/17/2024 7:28 AM EDT us Candelaria Hahn MD LAB BLOOD ORDERABLES Final Resu lt [facility] [address] [place] [address] * Hemogram (CBC) (10/17/2024 7:12 AM EDT) WBC Count 6.70 3.70 - 10.30 10*3/uL LAB HEMATOLOGY METHOD 10/17/2024 7:39 AM EDT [facility] RBC Count 4.75 4.60 - 6.10 10*6/uL LAB HEMATOLOGY METHOD 10/17/2024 7:39 AM EDT [facility] HGB 14.1 13.7 - 17.5 g/dL LAB HEMATOLOGY METHOD 10/17/2024 7:39 AM EDT [facility] HCT 44.0 40.0 - 51.0 % LAB HEMATOLOGY METHOD 10/17/2024 7:39 AM EDT [facility] Platelet Count 179 155 - 369 10*3/uL LAB HEMATOLOGY METHOD 10/17/2024 7:39 AM EDT [facility] MCV 93 79 - 98 fL LAB HEMATOLOGY METHOD 10/17/2024 7:39 AM EDT [facility] MCH 29.7 26.0 - 32.0 pg LAB HEMATOLOGY METHOD 10/17/2024 7:39 AM EDT [facility] MCHC 32.0 30.7 - 35.5 g/dL LAB HEMATOLOGY METHOD 10/17/2024 7:39 AM EDT [facility] RDW 12.3 11.5 - 14.5 % LAB HEMATOLOGY METHOD 10/17/2024 7:39 AM EDT [facility] MPV 10.3 8.8 - 12.5 fL LAB HEMATOLOGY METHOD 10/17/2024 7:39 AM EDT [facility] nRBC 0.0 <=0.0 per 100 WBCs LAB HEMATOLOGY METHOD 10/17/2024 7:39 AM EDT [facility] Blood Venous blood specimen / Unknown Venipuncture / Unknown 10/17/2024 7:12 AM EDT 10/17/2024 7:28 AM EDT us Candelaria Hahn MD LAB BLOOD ORDERABLES Final Resu lt [facility] [address] [place] [address] documented in this encounter Visit Diagnoses Diagnosis [...] documented as of this encounter Care Teams Sign Language Interpreter Relationship Specialty Start Date End Date Allison, [place] [address] PCP - General Family Medicine 09/04/23 documented as of this encounter
--- NOTE | 2024-11-21 15:06 | XR_ITS ---
FINAL REPORT CLINICAL HISTORY: Right pointer finger injury f/u COMPARISON: 10/29/2024 FINDINGS: RIGHT HAND Three views were obtained. An overlying splint is present. There is a fracture at the dorsal base of the second distal phalanx with intra-articular extension. Fracture fragment measures 4 mm. There has been no significant change since the prior. IMPRESSION: No significant change in the fracture of the second distal phalanx. Reviewed, Interpreted and Dictated by Rodrigo Garcia MD Transcribed by Sofia Medina Authenticated and [facility]
--- OUTSIDE RECORDS SUMMARY | 2024-11-21 15:06 | XMS_ITS | Encounter Summary ---
Author Organization Healthcare Address [address] [place] [address] Care Team Providers Care Conveyor Line Bakery Worker Name Role Phone Pcp, No Primary Care Provider Unavailabl e Encounter Details Date Type Department Care Team (Late Contact Info) Description 09/20/2024 Telephone [facility] [address] [place] [phone] Harmony Muñoz, RN [facility] Social History [...] Office Visit [facility] [address] [place] [address] Megan Spangler MD [address] [facility] [address] [place] [address] documented as of this encounter Visit Diagnoses Not on filedocumented in this encounter Additional Health Concerns Assessment Noted Time A fall risk assessment has been complete d for the patient 03/18/2024 2:36 PM EST A Body Mass Index follow-up plan has been documented for the patient 01/29/2024 3:48 PM EST documented as of this encounter Care Teams Conveyor Line Bakery Worker Relationship Specialty Start Date End Date Pcp, No [address] [place] [address] PCP - General Family Medicine 09/04/23 documented as of this encounter
--- OUTSIDE RECORDS SUMMARY | 2024-11-21 15:07 | XMS_ITS | Encounter Summary ---
Author Organization Healthcare Address [address] [place] [address] Care Team Providers Care Legislative Analyst Name Role Phone Pcp, No Primary [...] Description 03/10/2025 10:00 AM EST Office Visit [facility] Multidisciplinary Oncology Clinic [address] [place] [address] Megan Spangler MD [id number] [place] [address] documented as of this encounter Visit Diagnoses Not on filedocumented in this encounter Additional Health Concerns Assessment Noted Time A fall risk assessment has been complete d for the patient 03/18/2024 2:36 PM EST A Body Mass Index follow-up plan has been documented for the patient 01/29/2024 3:48 PM EST documented as of this encounter Care Teams Legislative Analyst Relationship Specialty Start Date End Date Pcp, No [address] [place] [address] PCP - General Family Medicine 09/04/23 documented as of this encounter
--- OUTSIDE RECORDS SUMMARY | 2024-11-21 15:07 | XMS_ITS | Encounter Summary ---
Author Organization [facility] Address [address] [place] [address] Care Team Providers Care Turn Down Man Name Role Phone Pcp, No Primary Care [...] Description 03/10/2025 10:00 AM EST Office Visit [facility] Multidisciplinary Oncology Clinic [address] [place] [address] Megan Spangler MD [address] [place] [address] documented as of this encounter Visit Diagnoses Not on filedocumented in this encounter Additional Health Concerns Assessment Noted Time A fall risk assessment has been complete d for the patient 03/18/2024 2:36 PM EST A Body Mass Index follow-up plan has been documented for the patient 10/17/2024 12:28 PM EDT documented as of this encounter Care Teams Turn Down Man Relationship Specialty Start Date End Date Pcp, No [address] [place] [address] PCP - General Family Medicine 09/04/23 documented as of this encounter
--- OUTSIDE RECORDS SUMMARY | 2024-11-21 15:07 | XMS_ITS | Clinical Summary ---
[facility] Address [address] [place] [address] Care Team Providers Care Vocational Training Teacher Name Role Phone Keri Mckinnon APRN Primary [...] 2020 ZOSTER VACCINE (1 of 2) 2020 INFLUENZA VACCINE 09/23/2024 12/12/2022, , 12/09/2018, Additional history exists Insurance Member Subscriber Plan / Payer (Ef fective 2020-Present) Name:Quirino Gonzáels Relation to Subscriber:Spouse Name:Felisha Gonzáles Date of :1971 (Home) Address: [address] [place] [address] Payer ID:[id number] (NAIC) Type:Not on file Address: [facility] [id number] [id number] Care Teams Vocational Training Teacher Relationship Specialty Start Date End Date Keri Mckinnon APRN [address] [phone] PCP - General Nurse Practitioner 04/02/23
--- OUTSIDE RECORDS SUMMARY | 2024-11-21 15:07 | XMS_ITS | Clinical Summary ---
Author Organization [facility] Address [address] [place] [address] Care Team Providers Care Director Of Spa And Guest Experience Name Role Phone Pcp, No Primary Care Provider Unavailabl e Allergies No known active allergies Medications diclofenac (Voltaren) 75 MG EC tablet Take 1 tablet by mouth 2 times a day. Active omeprazole (PriLOSEC) [address] capsule Take 1 capsule by mouth daily before breakfast. 11/25/2023 Active busPIRone (Buspar) 10 MG tablet Take 1 tablet by mouth 2 times a day. Active losartan (Cozaar) 50 MG tablet Take 1 tablet by mouth daily. Active cholecalciferol (Vitamin D-3) 1.25 MG (51852 UT) capsule Take 1 capsule by mouth 1 time per week. 10/15/2023 Active zolpidem (Ambien) 10 MG tablet Take 1 tablet by mouth daily. Active methocarbamol (Robaxin) 750 MG tablet Take 1 tablet by mouth 4 times a day. 12/30/2023 Active rosuvastatin (Crestor) 20 MG tablet Take 1 tablet by mouth daily. 90 tablet 1 10/17/2024 Active aspirin 81 MG chewable tablet Chew 1 tablet daily. aspirin 81 mg tablet 360 tablet 10/18/2024 Active Active Problems Problem Noted Date Diagnosed Date Inflammatory disease of prostate, unspecified Encounters Date Type Department Care Team Description 10/17/2024 8:25 AM EDT - 10/17/2024 10:40 AM EDT Surgery Cardiac Net Mender [address] [place] [address] Candelaria Hahn MD Coronary angiography [87498 (CPT )] 10/17/2024 6:29 AM EDT - 10/17/2024 1:11 PM EDT Hospital Encounter Cardiac Net Mender [address] [place] [phone] Candelaria Hahn MD Multiple vessel coronary artery disease Discharge Disposition: Home or Self Care 10/17/2024 Travel 10/10/2024 Travel 09/27/2024 4:44 PM EDT - 09/27/2024 11:59 PM EDT Hospital Encounter [facility] [address] [place] [address] Chest pain, unspecified Discharge Disposition: Home or Self Care 09/27/2024 1:44 PM EDT - 09/27/2024 4:43 PM EDT Hospital Encounter [facility] [address] [place] [address] Chest pain, unspecified Discharge Disposition: Home or Self Care 09/27/2024 12:22 PM EDT - 09/27/2024 1:43 PM EDT Hospital Encounter [facility] [address] [place] [address] Mesfin Jacobsen RN Chest pain, unspecified Discharge Disposition: Home or Self Care 09/27/2024 Travel 09/20/2024 Travel 09/20/2024 Telephone [facility] [address] [place] [address] Harmony Muñoz, RN from Last 3 Months [...] Office Visit [facility] [address] [place] [address] Megan Spangler MD [address] [place] [address] Health Maintenance Due Date Last Done Comments [...] 2020 UKY-Zoster Vaccines (1 of 2) 2020 [id number] Vaccine ( - season) 2024 02/14/2021, 06/06/2020, 05/09/2020 UKY-Influenza [...] and dyslipidemia, as applicable. 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 Coronary [...] * POCT creatinine (10/17/2024 7:21 AM EDT) [facility] Creatinine, Point of Care 1.0 0.7 - 1.2 mg/dL 10/17/2024 7:25 AM EDT [facility] POCT eGFR 89 mL/min/1. 73m*2 10/17/2024 7:25 AM EDT [facility] Rn Social Services ID Sarahy Yang 10/17/2024 7:25 AM EDT [facility] Device ID [id number] 10/17/2024 7:25 AM EDT [facility] Comment 10/17/2024 7:25 AM EDT [facility] [...] DOCKED DEVICE UNSOLICITED RESULTS Final Result [facility] [address] [place], [place] [id number] [place] [address] LAB [address] [place] [address] * Hemogram (CBC) (10/17/2024 7:12 AM EDT) [...] AM EDT 10/17/2024 7:28 AM EDT us Amartya Selma MD LAB BLOOD ORDERABLES Final Resu lt [facility] [address] [place] [address] * (ABNORMAL) Basic metabolic panel (10/17/2024 7:12 [...] Resu lt [facility] [address] [place] [address] * CT Angio Cardiac FFR (09/27/2024 4:44 [...] source 192 MDCT scanner ([employer] Force, [employer])was used for data acquisition. A non-contrast [...] Resul t from Last 3 Months Insurance [facility] Advance Directives * Full Code (Latest Code Status on File) Date Activated Date Inactivated Comments 10/17/2024 10:01 AM 10/17/2024 3:16 PM Question Answer Comments I have reviewed the capacity from the link above and, if needed, have updated to appropriate status: Yes Care Teams Director Of Spa And Guest Experience Relationship Specialty Start Date End Date Pcp, No [address] [place] [address] PCP - General Family Medicine 09/04/23
--- OUTSIDE RECORDS SUMMARY | 2024-11-21 15:07 | XMS_ITS | Encounter Summary ---
Author Organization Healthcare Address [address] [place] [address] Care Team Providers Care Detail Sergeant Name Role Phone Pcp, No Primary Care [...] 10:00 AM EST Office Visit [facility] Multidisciplinary Oncology Clinic [address] [place] [address] Megan Spangler MD [id number] [place] [address] documented as of this encounter Visit Diagnoses Not on filedocumented in this encounter Additional Health Concerns Assessment Noted Time A fall risk assessment has been complete d for the patient 03/18/2024 2:36 PM EST A Body Mass Index follow-up plan has been documented for the patient 01/29/2024 3:48 PM EST documented as of this encounter Care Teams Detail Sergeant Relationship Specialty Start Date End Date Pcp, No [address] [place] [address] PCP - General Family Medicine 09/04/23 documented as of this encounter
--- OUTSIDE RECORDS SUMMARY | 2024-11-21 15:07 | XMS_ITS | Clinical Summary ---
Author Organization [facility] Address [address] [place] [address] Phone [email or web address] Care Team Providers Care Cattle Driver Name Role Phone Jem Guillermo Primary Care Provider [phone] Allergies Active Allergy Reactions Criticality Noted Date [...] each day. 1 Active D3-50 1.25 MG (79753 UT) capsule TAKE 1 CAPSULE BY MOUTH [...] and Pertussis Immunization (1 - Tdap) 1989 Pneumococcal: 50+ Years (1 of 1 - PCV) 2020 Zoster Immunization (1 of 2) 2020 Covid-19 [...] patient's age to complete this topic Insurance Count includes the [facility] [id number] [place] [address] Care Teams Cattle Driver Relationship Specialty Start Date End Date [place] [address] [place] [address] [address] [address] PCP - General Family Medicine 10/24/19
== END 2024-11-21 23:59 | disposition home or self-care (01) ==
LOC: RAD 15:04
PROVIDERS: PCP Family Medicine; Visit Provider Physician Assistant
DX: S62.630A Displaced fracture of distal phalanx of right index finger, initial encounter for closed fracture (principal); M20.011 Mallet finger of right finger(s)
CPT/HCPCS: 73130

== ENCOUNTER 2024-12-15 13:40 | Outpatient (CLI) | payer BC, SELFPAY ==
--- NOTE | 2024-12-15 13:43 | XR_ITS ---
FINAL REPORT CLINICAL HISTORY: right pointer finger fracture COMPARISON: 11/21/2024 FINDINGS: RIGHT HAND Three views were obtained. There is improved anatomic alignment of the dorsal plate fracture of the second distal phalanx. There may be some partial union of fracture. There is no new bony abnormality. IMPRESSION: Improved anatomic positioning of the second distal phalanx fracture with possible partial bone healing at this time. Reviewed, Interpreted and Dictated by Madie Hallman MD Transcribed by Sofia Medina Authenticated and [facility]
--- OUTSIDE RECORDS SUMMARY | 2024-12-15 14:37 | XMS_ITS | Data Portability ---
Author Organization [facility] Laverne lacy, [facility] [place] [facility] Address [address] [place] [address] Assessment Encounter Date Assessment Date Assessment LastModified by Organization Details LastModified Time 01/29/2018 01/29/2018 SURGERY DATE:01/29/2018 PREOPERATIVE DIAGNOSIS: Left distal ureteral stone with obstruction. POSTOPERATIVE DIAGNOSES: Left distal ureteral stone and left distal ureteral stenosis. PROCEDURE: Cystoscopy with stone extraction and left stent placement. COMPLICATIONS: None. CONDITION: Stable. ANESTHESIA: General. SURGEON: Anatoliy Valero MD INDICATIONS: This is a 47-year-old white male with a history of nephrolithiasis , now with a several-day history of left renal colic. A CT scan three days ago showed a 5 mm distal left ureteral stone with hydronephrosis. I discussed the findings with the patient over the telephone and he opts to proceed with surgical management. I have seen and operated on this patient for stones in the past. I spoke with him in the preoperative room before the case and discussed the procedure where the stone was and how we would go about removing it and placing a possible stent which he has had before. He wishes to proceed. His is in agreement as well. OPERATIVE NOTE: The patient was taken to the operating room after informed consent was obtained. He was placed on the operating table in the supine position. General anesthesia was administered. Sequential compression devices were placed and preoperative antibiotics administered. He was then placed into the dorsal lithotomy position and prepped and draped in the standard surgical fashion. The 21-Italian cystoscope passed into the urethra and into the bladder without difficulty. There was a moderate-sized median lobe and the bladder was within normal limits without trabeculation, cellulose or diverticula. The ureteral orifices were in their normal anatomic position. A guidewire was passed into the left ureteral orifice and under fluoroscopy, bypassed a stone in the distal ureter. We then removed the scope and passed our semi-rigid ureteroscope into the bladder and into the left ureter. We were able to bypass a ureteral narrowing below the stone and up to the level of the stone which was 5-6 mm in size. A Tej basket was used to grasp the stone and we were able to bring it out through the ureter but we did dilate the distal ureteral stenosis with the scope prior to its removal. After the larger stone was removed, we replaced the ureteroscope and a smaller stone was removed. I then removed the ureteroscope and put the cystoscope back into the bladder and observed the left ureter for efflux of urine which was not visualized so I replaced the guidewire and passed a 4.8 x 26 Italian stent over the wire. The wire was removed under fluoroscopic guidance. There was good curl proximally and distally and there was good efflux of clear urine. through the stent afterwards. Uro-Jet placed into the urethra and the string was left on for later removal. The patient tolerated it well and discharged to recovery room in a stable condition. [id number] Not available 01/30/2018 01:56:40 Plan of Treatment Reminders Order Date Submit Date Provider Last Modified By Organization Details Last Modified Time Details Appointments None record ed. Lab None record ed. Referral None record ed. Procedures None record ed. Surgeries None record ed. Imaging None record ed. Medication Orders None record ed. Patient TargetsNo targets recorded. Patient InstructionsNo instructions recorded. Reason for Referral None Reported. Results Created Date Observation Date Name Description Value Unit Range Abnormal Flag Note LastModifiedBy Organization Detail LastModifiedTime 02/02/20 18 02/05/2018 kidne y stone clair sis nidus Not observ ed normal Not Available [facility] [address] [place] [address], [place], [address], 02/05/2018 00:10:24 02/02/20 18 02/05/2018 kidne y stone clair sis composition See Below normal Calci um Oxala te Dihyd rate (Wedd ellit e) 50% Calci um Oxala te Monoh ydrat e (Whew ellit e) 50% Not Available [facility] [address] [place], [address], 02/05/2018 00:10:24 02/02/20 18 02/05/2018 nathanael nelson clair sis weight 0.0200 g normal This test was devel oped and its clair tical perfo rmanc e monet cteri stics have been deter mined by [facility] It has not been clear ed or appro emily by the US Food and Drug Admin istra tion. This assay has been valid ated pursu ant to the CLIA regul ation s and is used for clini vin purpo ses. TEST PERFO RMED AT: [facility] MICHAEL LS JAIDEN LULA [address] [place] [id number] Fatmata MASON,PHD Not Available [facility] [address] [place], [address], 02/05/2018 00:10:24 Result Notes None recorded. Medical Equipment None Reported. Allergies Allergen ID Allergen Name Allergen Category Reaction Reaction Severity Criticality Documentation Date Start Date Code Code System Note Provider Name and Address Organization Details Recorded Time 065009 aspirin medicatio n Not available Not available Not available 01/18/20162011 1191 RxNorm Comme nt: Creat ed By: Lore;Cre ated Date: 2011 3:15: 55 PM; Not Available [facility] 6 08:03:59 Medications Name Sig Start Date Stop Date Status Note LastModified by Organization Details LastModified Time doxycycline hyclate 100 mg capsule active Not Available Not Available N ot Available azithromycin 250 mg tablet active Not Available Not Availabl e Not Available ciprofloxacin 500 mg tablet active Not Available Not Availabl e Not Available simvastatin 40 mg tablet active Not Available Not Available Not Available tamsulosin 0.4 mg capsule active Not Available Not Available Not Available zolpidem 10 mg tablet Bedtime active Not Available Not Available No t Available Crestor 10 mg tablet Daily active Frequen cy: daily;M edicati on Descrip tion: rosuvas tatin; Dosage: 1; Route:o ral; refills :5; Quantit y:30 tablet Not Available Not Available Not Available Vitals None Recorded Social History None recorded. Functional Status None recorded. Mental Status None recorded. Family History Nothing Reported. Medical History No medical history recorded. Past Encounters Encounter ID Performer Location Encounter Start Date Encounter Closed Date Diagnosis/Indication Diagnosis SNOMED-CT Code Diagnosis ICD10 Code Diagnosis IMO Codes Diagnosis Note [id number] ANATOLIY VALERO MD SURGERY SCHEDULE [address] [place] [address] 01/29/2018 14:10:22 01/29/2018 14:17:29 Health Concerns Section Related Observation LastModified by Organization Detai ls LastModified Time None Recorded Concern Status LastModified by Organization Details LastModified Time None Recorded Advance Directives Directive None Recorded Payers Insurance Date Sequence Insurance Name Policy Number Policy Reed Covered Member ID Reed Member ID Guarantor Name 02/08/2018 1 [place] [id number] Quirino Gonzáles [id number] Quirino Gonzáles
== END 2024-12-15 23:59 | disposition home or self-care (01) ==
LOC: RAD 13:41
PROVIDERS: PCP Family Medicine; Visit Provider Physician Assistant
DX: S62.630D Displaced fracture of distal phalanx of right index finger, subsequent encounter for fracture with routine healing (principal); X58.XXXD Exposure to other specified factors, subsequent encounter
CPT/HCPCS: 73130

== ENCOUNTER 2025-01-16 17:00 | Outpatient (RCR) | payer BC, SELFPAY ==
--- NOTE | 2025-01-09 10:08 | HMH.OTOPEV ---
OT Evaluation Rehab OT Outpatient Eval Start: 01/09/25 09:05 Freq: Status: Active Protocol: Document 01/09/25 09:15 DEMIAN (Rec: 01/09/25 10:07 DEMIAN [id number]) E-signed By Colette Cai, OT Outpatient Therapy Subjective History Subjective History Pt is 54 yr old male who presents to initial OT evaluation due to fracture to R index finger at DIP joint. Pt reported they were cutting a tree when a limb fell and hit the right finger. Pt reported they were in splint and recently were released from splint on of this past week. Pt presents today with R index and middle finger vero taped. Pt reported they have had an x-ray with mx follow up x-rays to show progression and go back in 3 wks on January 24. Pt is R hand dominant and works at [employer]. Initial X-ray reported 10/15/24: FINDINGS: Bones/joints: Acute cortical avulsion fracture base of the distal phalanx of the index finger. Mild degenerative change interphalangeal joint of the thumb. Remote deformity ulnar styloid process. No concerning bone lesions or calcifications. Soft tissues: Mild soft tissue swelling index finger. 12/15/24 X-Ray: FINDINGS: RIGHT HAND Three views were obtained. There is improved anatomic alignment of the dorsal plate fracture of the second distal phalanx. There may be some partial union of fracture. There is no new bony abnormality. IMPRESSION: Improved anatomic positioning of the second distal phalanx fracture with possible partial bone healing at this time. Pt presented with pain in PROM to R index finger at PIP and DIP joint, more pain noted at DIP joint. Pt presented with swelling and that they feel a burning sensation in R index finger. Pt reported they are worried about harming the finger again as reported it is very fragile. Pt presented with good AROM at PIP of flexion to R index finger to 90 degrees. Pt presented with guarding and pain when DIP was PROM, only able to PROM DIP to 5 degrees flexion. Measurements as of 01/09/25: R index PIP flexion: 90 degrees R index DIP flexion: 5 degrees in PROM only no AROM Pain at worst 6/10 3/5 MMT R hand director outpatient services strength: [address] Pt will increase right index DIP flexion to 5 degrees in order to complete daily head of mobile independently ~50% of the time. 2. Pt will increase strength to 3+/5 throughout right index finger in order to complete heavier household tasks (laundry, mopping, vacuuming) independently ~50% of the time. 3. Pt will verbalize decreased pain levels at worst in R index finger to a 4/10 in order to complete daily ADLs independently ~50% of the time. 4. Pt will demonstrate improved endurance by completing right hand exercises for ~10 minutes prior to rest break in order to increase his tolerance for daily work activities. 5. Pt will demonstrate independence with HEP of AAROM exercises to increase overall functional use of Right hand in daily activities ~75% of the time. 6. Pt will improve right hand director outpatient services strength to 35 lbs in order to be able to open jars/containers independently ~50% of the time. LT. Pt will increase right index DIP flexion to 20 degrees in order to complete daily head of mobile independently ~50% of the time. 2. Pt will increase strength to 4-/5 throughout right index finger in order to complete heavier household tasks (laundry, mopping, vacuuming) independently ~50% of the time. 3. Pt will verbalize decreased pain levels at worst in R index finger to a 3/10 in order to complete daily ADLs independently ~50% of the time. 4. Pt will demonstrate improved endurance by completing right hand exercises for ~15 minutes prior to rest break in order to increase his tolerance for daily work activities. 5. Pt will demonstrate independence with HEP of AROM exercises to increase overall functional use of Right hand in daily activities ~75% of the time. 6. Pt will improve right hand director outpatient services strength to 45 lbs in order to be able to open jars/containers independently ~50% of the time. New diagnosis of No cancer in past 12 months? Chief Complaint Pain,Stiff,Swelling,Weakness,Decreased Storm Door Maker Strength, Decreased Coordination Symptom Type Sharp,Stabbing,Burning,Numbness,Tingling,Shooting Symptoms Relieved By Brace/Support Symptoms Aggravated Physical Activity,Lifting By Prior Functional None Limitations Current Functional Lifting,Housework,Dressing,Desk Work/Reading,Driving, Limitations Sleeping,Recreation Activity Symptom Description Intermittent Level of pain today 3 (0-10) Pain scale - at its 3 best (0-10) Pain scale - at its 6 worst (0-10) Wrist/Hand Eval Palpation Tenderness/Visual Exam Wrist/Hand Palpation tenderness at R index finger at DIP joint, also Overall Comment swelling present Finger Range of Motion Right Index Finger Finger ROM Pain Limitations Finger 90 Metacarpophalangeal Flexion Active Range of Motion (degrees) Finger Proximal 90 Interphalangeal Flexion Active Range (degrees) Finger Distal 5 Interphalangeal Flexion Passive Range Motion ( degrees) Storm Door Maker/Pinch Strength Right Storm Door Maker Strength 15 Measurement (lbs) QuickDASH Activities Please rate your ability to do the following activities in the last week by selecting the number below the appropriate response. 1. Open a tight or Severe difficulty new jar. 2. Do heavy Severe difficulty head of mobile (e. g., wash romano, floors). 3. Carry a shopping Moderate difficulty bag or briefcase. 4. Wash your back. Moderate difficulty 5. Use a knife to Severe difficulty cut food. 6. Recreational Moderate difficulty activities in which you take some force or impact through your arm, shoulder, or hand (e.g., golf, hammering, tennis, etc.). 7. During the past Quite a bit week, to what extent has your arm, shoulder or hand problem interfered with your normal social activities with family, friends , neighbors or groups? 8. During the past Very limited week, were you limited in your work or other regular daily activites as a result of your arm, shoulder or hand problem? 9. Arm, shoulder or Moderate hand pain. 10. Tingling (pins Moderate and needles) in your arm, shoulder or hand. 11. During the past Mild difficulty week, how much difficulty have you had sleeping because of the pain in your arm, shoulder or hand? Quick DASH 37 Work Module (optional) The following questions ask about the impact of your arm, shoulder or hand problem on your ability to work (including homemaking if that is your main work role). Please indicate what [employer] your job/work is: Do you work? Yes 1. Using your usual Severe difficulty technique for your work? 2. Doing your usual Severe difficulty work because of arm, shoulder or hand pain? 3. Doing your work Severe difficulty as well as you would like? 4. Spending your Severe difficulty usual amount of time doing your work? Quick Dash Work 16 Module Score OT Patient Goals OT Patient Goals OT Short Term 1. Pt will increase right index DIP flexion to 5 Patient Goals degrees in order to complete daily head of mobile independently ~50% of the time. 2. Pt will increase strength to 3+/5 throughout right index finger in order to complete heavier household tasks (laundry, mopping, vacuuming) independently ~50% of the time. 3. Pt will verbalize decreased pain levels at worst in R index finger to a 4/10 in order to complete daily ADLs independently ~50% of the time. 4. Pt will demonstrate improved endurance by completing right hand exercises for ~10 minutes prior to rest break in order to increase his tolerance for daily work activities. 5. Pt will demonstrate independence with HEP of AAROM exercises to increase overall functional use of Right hand in daily activities ~75% of the time. 6. Pt will improve right hand director outpatient services strength to 35 lbs in order to be able to open jars/containers independently ~50% of the time. OT Autistic Teacher Patient 1. Pt will increase right index DIP flexion to 20 Goals degrees in order to complete daily head of mobile independently ~50% of the time. 2. Pt will increase strength to 4-/5 throughout right index finger in order to complete heavier household tasks (laundry, mopping, vacuuming) independently ~50% of the time. 3. Pt will verbalize decreased pain levels at worst in R index finger to a 3/10 in order to complete daily ADLs independently ~50% of the time. 4. Pt will demonstrate improved endurance by completing right hand exercises for ~15 minutes prior to rest break in order to increase his tolerance for daily work activities. 5. Pt will demonstrate independence with HEP of AROM exercises to increase overall functional use of Right hand in daily activities ~75% of the time. 6. Pt will improve right hand director outpatient services strength to 45 lbs in order to be able to open jars/containers independently ~50% of the time. OT Outpatient Assessment Impairments Problems/Impairments Palpation Tenderness,Impaired Range of Motion,Impaired Strength,Impaired Endurance,Impaired Lifting,Impaired Dressing,Impaired Shower/Bathing,Impaired Household Care,Impaired Recreational Activities,Impaired Work Activities,Impaired Desk/Computer Activities,Subjective C/O Pain,Impaired Self Care/Self Management Prognosis Rehab Potential Good Clinical Impression Consistent with Yes Diagnosis Outpatient Therapy Plan of Care Treatment Plan May Include Therapeutic Exercise Yes Including Home Exercise Program Manual Therapy Yes Techniques Neuromuscular Re- Yes education Therapeutic Yes Activities to Return to Previous Functional/Work Level ADL/Self Care Yes Education Thermal Modalities Yes Electrical Yes Stimulation Ultrasound/ Yes Phonophoresis Iontophoresis Yes Parrafin Yes Orthotics/Bracing/ Yes Splinting Group Therapy for Yes Medicare Eval/Re-Eval Yes Frequency Times per week 2 Duration Number of Weeks 6 Addendums This patient is a No candidate for social or vocational rehab ? Patient/Guardian Yes verbally acknowledges understanding of treatment program and consents to further treatment? Patient/Guardian Yes verbally acknowledges understanding of diagnosis, prognosis and goals for treatment? Eval Complexity OT Charge 58540 - Moderate Complexity Shoulder/Elbow Eval Shoulder Objective Measurements Elbow Objective Measurements PHYSICIAN CERTIFICATION: I certify the specified therapy services for Quirino Gonzáles are required, authorized, and reviewed every 30 days.
== END 2025-01-16 23:59 | disposition home or self-care (01) ==
LOC: OT 17:00
PROVIDERS: PCP Family Medicine; Visit Provider Physician Assistant
DX: M20.019 Mallet finger of unspecified finger(s) (principal); S62.630D Displaced fracture of distal phalanx of right index finger, subsequent encounter for fracture with routine healing; W20.8XXD Other cause of strike by thrown, projected or falling object, subsequent encounter
CPT/HCPCS: 97110; 97140; 97166

== ENCOUNTER 2025-01-20 07:51 | Outpatient (CLI) | payer BC, SELFPAY ==
--- OUTSIDE RECORDS SUMMARY | 2025-01-20 07:54 | XMS_ITS | Clinical Summary ---
Author Organization [facility] ([place], [place], [place], [place], [place]) Address [address] [place] [address] Care Team Providers Care Industrial Cleaner Name Role Phone Christa Hart APRN Primary [...] Date Moises rded Speak language other than Welsh at home Not on file 03/13/2023 Want [...] Screening (12+) 02/0702/07/2022 COVID-19 VACCINE (1 - 2023- season) 2024 Influenza Vaccine (#1) 2024 Insurance BLUE CROSS/BLUE SHIELD Care Teams Industrial Cleaner Relationship Specialty Start Date End Date Christa Hart, KERRI [address] [address] PCP - General Nurse Practitioner 02/07/22
--- OUTSIDE RECORDS SUMMARY | 2025-01-20 07:54 | XMS_ITS | Clinical Summary ---
[facility] Organization [facility] Address [address] [place] [address] Care Team Providers Care Gear Generator Set Up Operator Name Role Phone Keri Mckinnon APRN Primary [...] Plan / Payer (Ef fective 2020-Present) Name:Quirino Gonzáles Relation to Subscriber:Spouse Name:Felisha Gonzáles Date of :1971 (Home) Address: [address] [place] [address] Payer ID:[id number] (NAIC) Type:Not on file Address: [facility] [address] [place] [id number] Care Teams Gear Generator Set Up Operator Relationship Specialty Start Date End Date Keri Mckinnon APRN [address] [place] [phone] PCP - General Nurse Practitioner 04/02/23
--- OUTSIDE RECORDS SUMMARY | 2025-01-20 07:54 | XMS_ITS | Clinical Summary ---
Author Organization [facility] Address [address] [place] [address] Phone [email or web address] Care Team Providers Care Manager Customer Service Name Role Phone Guillermo Parish Primary Care Provider [phone] Allergies Active Allergy Reactions Criticality Noted Date [...] each day. 1 Active D3-50 1.25 MG (98532 UT) capsule TAKE 1 CAPSULE BY MOUTH [...] patient's age to complete this topic Insurance [facility] [id number] [place] [address] Care Teams Manager Customer Service Relationship Specialty Start Date End Date Guillermo Parish [place] [address] [address] [phone] PCP - General Family Medicine 10/24/19
--- OUTSIDE RECORDS SUMMARY | 2025-01-20 07:54 | XMS_ITS | Referral Summary ---
Author Organization [facility] ([place], [place], [place], [place], [place]) Address [address] [place] [address] Care Team Providers Care Qa Manager Name Role Phone Christa Hart APRN Primary [...] Date Moises rded Speak language other than Mohawk at home Not on file 03/13/2023 Want [...] Plan of Treatment Not on file Insurance BLUE CROSS/BLUE SHIELD Care Teams Qa Manager Relationship Specialty Start Date End Date Christa Hart, ENTREPRENEURSHIP PROGRAM DIRECTOR [address] [phone] PCP - General Nurse Practitioner 02/07/22
--- OUTSIDE RECORDS SUMMARY | 2025-01-20 07:54 | XMS_ITS | Data Portability ---
Author Organization [facility] Laverne lacy, [facility] Address [address] [address] [place] [address] Assessment Encounter Date Assessment Date Assessment LastModified [...] draped in the standard surgical fashion. The 21-Paraguayan cystoscope passed into the urethra and into [...] guidewire and passed a 4.8 x 26 Paraguayan stent over the wire. The wire was [...] nidus Not observ ed normal Not Available [facility] [address] [place] [address], [place], [address], 02/05/2018 00:10:24 02/02/20 18 02/05/2018 kidne y stone clair sis composition See Below normal Calci um Oxala te Dihyd rate (Wedd ellit e) 50% Calci um Oxala te Monoh ydrat e (Whew ellit e) 50% Not Available [facility] [address] [place], [address], 02/05/2018 00:10:24 02/02/20 18 02/05/2018 nathanael nelson clair sis weight 0.0200 g normal This test was devel oped and its clair tical perfo rmanc e monet cteri stics have been deter mined by [facility] It has not been clear ed or appro emily by the US Food and Drug Admin istra tion. This assay has been valid ated pursu ant to the CLIA regul ation s and is used for clini vin purpo ses. TEST PERFO RMED AT: [facility] MICHAEL LS JAIDEN [place] [address] [facility] [place] [address] Fatmata MASON,PHD Not Available [facility] [address] [place], [address], 02/05/2018 00:10:24 Result Notes None recorded. Medical Equipment None Reported. Allergies Allergen ID Allergen Name Allergen Category Reaction Reaction Severity Criticality Documentation Date Start Date Code Code System Note Provider Name and Address Organization Details Recorded Time 133884 aspirin medicatio n Not available Not available Not available 01/18/20162011 1191 RxNorm Comme nt: Creat ed By: Lore;Cre ated Date: 2011 3:15: 55 PM; Not Available [facility] 6 08:03:59 Medications Name Sig Start Date [...] ICD10 Code Diagnosis IMO Codes Diagnosis Note [id number] ANATOLIY VALERO MD SURGERY SCHEDULE [address] [place] [address] 01/29/2018 14:10:22 01/29/2018 14:17:29 Health Concerns Section Related Observation LastModified by Organization Detai ls LastModified Time None Recorded Concern Status LastModified by Organization Details LastModified Time None Recorded Advance Directives Directive None Recorded Payers Insurance Date Sequence Insurance Name Policy Number Policy Reed Covered Member ID Reed Member ID Guarantor Name 02/08/2018 1 [place] [id number] Quirino Gonzáles [id number] Quirino Gonzáles
--- OUTSIDE RECORDS SUMMARY | 2025-01-20 07:54 | XMS_ITS | Clinical Summary ---
Author Organization Healthcare Address [address] [place] [address] Care Team Providers Care Home Delivery Driver Name Role Phone Pcp, No Primary [...] daily. Active cholecalciferol (Vitamin D-3) 1.25 MG (57118 UT) capsule Take 1 capsule by mouth [...] Diagnosed Date Inflammatory disease of prostate, unspecified Family History Medical History Relation Name Comments [...] 10:00 AM EST Office Visit [facility] Multidisciplinary Oncology Clinic [address] [place] [address] Megan Spangler MD [address] [facility] [address] [place] [address] Health Maintenance Due Date Last Done Comments [...] 2020 UKY-Zoster Vaccines (1 of 2) 2020 [id number] Vaccine (4 - season) 2024 02/14/2021, 06/06/2020, [...] patient's age to complete this topic Insurance [facility] Advance Directives * Full Code (Latest Code Status on File) Date Activated Date Inactivated Comments 10/17/2024 10:01 AM 10/17/2024 3:16 PM Question Answer Comments I have reviewed the capacity from the link above and, if needed, have updated to appropriate status: Yes Care Teams Home Delivery Driver Relationship Specialty Start Date End Date Pcp, No [address] [place] [address] PCP - General Family Medicine 09/04/23
--- OUTSIDE RECORDS SUMMARY | 2025-01-20 07:54 | XMS_ITS ---
Author Organization Unknown ENCOUNTERS Encounter Performer Location Date Diagnosis Diagnosis Status Pre Admit [address] [place] [address] [id number] Emergency [address] [place] [place] [address] [id number] LEIGH Emergency [facility] [place] [place], [facility] [id number] LEIGH Pre Admit [address] [place] [address] [id number] Emergency [place] [address] [place] [address] [id number] LEIGH Pre Admit [place] [address] [place], [facility] [id number] LEIGH *Note: Encounters from your own facility or health system may be excluded. Allergies, Adverse Reactions, Alerts Allergen Type Severity Identification Date Medications Name Date Quantity Days Supplied GPI Number
--- NOTE | 2025-01-20 08:00 | MR_ITS ---
FINAL REPORT TECHNIQUE: Multiplanar and multisequence MRI imaging was obtained of the right hand. CLINICAL HISTORY: right hand pain. FX INDEX FINGER 12 WEEKS AGO. COMPARISON: Hand x-rays 12/15/2024 and 11/21/2024 FINDINGS: There is incomplete fat saturation of the distal fingers. No acute bone marrow edema. Fracture along the dorsal base of the distal phalanx of the 2nd digit is visible on T1 sagittal images. Flexor tendons to the fingers are seen. There appears to be avulsion of the distal attachment of the extensor tendon from the distal phalanx as seen on series 7 and 14, image 22. Remaining extensor tendons appear intact. Volar plates appear intact. There is soft tissue edema of the 2nd digit, worse along the volar aspect of the distal finger. No joint effusion. Artifact related to silicone cast is noted. IMPRESSION: Avulsion fracture dorsal base distal phalanx 2nd digit. Findings concerning for avulsion of the distal attachment of the 2nd extensor tendon as above. Please correlate clinically. Reviewed, Interpreted and Dictated by Claudia Boles MD Transcribed by Barbara Arias Authenticated and [facility]
--- NOTE | 2025-01-20 08:03 | XR_ITS ---
FINAL REPORT CLINICAL HISTORY: RULE OUT METALLIC FOREIGN BODY FOR MRI. PRIOR HX METAL BILATERAL EYES. FINDINGS: ORBITS Look up and look down views were obtained for MRI clearance. There is a small radiopaque suture along the inferior right orbit. There are also surgical wires along the posterior left mandible. IMPRESSION: Radiopaque foreign bodies as above. Reviewed, Interpreted and Dictated by Claudia Boles MD Transcribed by Barbara Arias Authenticated and [facility]
== END 2025-01-20 23:59 | disposition home or self-care (01) ==
LOC: RAD 07:52
PROVIDERS: PCP Family Medicine; Visit Provider Physician Assistant
DX: S62.630A Displaced fracture of distal phalanx of right index finger, initial encounter for closed fracture (principal); M20.011 Mallet finger of right finger(s); R93.6 Abnormal findings on diagnostic imaging of limbs; Z98.890 Other specified postprocedural states; Z18.9 Retained foreign body fragments, unspecified material; Z04.89 Encounter for examination and observation for other specified reasons
CPT/HCPCS: 70200; 73218

== ENCOUNTER 2025-02-06 14:02 | Outpatient (CLI) | payer BC, SELFPAY ==
--- NOTE | 2025-02-06 14:05 | XR_ITS ---
FINAL REPORT CLINICAL HISTORY: ABD PAIN.. hx of kidney stones COMPARISON: None FINDINGS: SINGLE VIEW ABDOMEN A single view of the abdomen was obtained. There is a nonobstructive bowel gas pattern. There are no abnormally dilated loops of small bowel. There is a tiny density in the projection of the left kidney measuring 3 mm. There may be a 6 mm focus in the projection of the right kidney. 6 mm density at about the level of the left L3 transverse process could represent a left ureteral stone. IMPRESSION: Multiple densities with possible left ureteral stone. Reviewed, Interpreted and Dictated by Rodrigo Garcia MD Transcribed by Barbara Arias Authenticated and [facility]
== END 2025-02-06 23:59 ==
LOC: RAD 14:03
PROVIDERS: PCP Family Medicine; Visit Provider Nurse Practitioner Family
DX: R10.9 Unspecified abdominal pain (principal); R93.5 Abnormal findings on diagnostic imaging of other abdominal regions, including retroperitoneum; Z87.442 Personal history of urinary calculi
CPT/HCPCS: 74018